=== PATIENT | female | born 1950 | race Caucasian/White ===

== ENCOUNTER 2016-12-06 07:11 | Emergency (ER) | payer MEDICARE, MEDICAID ==
[2016-12-06 07:31] VITALS: BP 180/85
[2016-12-06] MEDS ORDERED: HYDROcodone/ACETAMIN 5-325 MG* 1 TAB PO ONE (07:53)
--- NOTE | 2016-12-06 08:27 | RAD ---
HISTORY: Back pain with radiation to right leg COMPARISONS: MRI dated December 09, 2006 TECHNIQUE: Multiple contiguous axial CT scans were obtained of the lumbar spine without intravenous contrast, with coronal and sagittal multiplanar reformations. FINDINGS: SPINAL CANAL: Evaluation of the central canal is limited on CT technique; however, there is no obvious canalicular mass or epidural hemorrhage. ALIGNMENT: The alignment is normal. VERTEBRAL BODIES: There is diffuse osteopenia. There is multilevel anterolateral marginal osteophyte formation with sclerotic reactive end plate changes at L2-L3 JOINTS: There is diffuse facet osteoarthritic change MUSCULATURE: There is mild fatty infiltration INTERVERTEBRAL DISCS: There is diffuse loss of intervertebral disc height throughout the spine. AXIAL IMAGES: T11-T12: There is no osseous neural foraminal narrowing or central canal stenosis. T12-L1: There is a 0.9 cm central disc protrusion. There is no significant osseous neural foraminal area or central canal stenosis.. L1-L2: There is no osseous neural foraminal narrowing or central canal stenosis L2-L3: There is a broad-based disc bulge with ligamentous and facet hypertrophy. There is marginal osteophyte formation at the neural foramina bilaterally. There is moderate right neuroforaminal narrowing. There is mild narrowing of the central canal. L3-L4: There is a broad-based disc bulge with ligamentous and facet hypertrophy. There is marginal osteophyte formation at the neural foramina bilaterally. There is moderate bilateral neural foraminal narrowing. There is moderate narrowing of the central canal. L4-L5: There is a broad-based disc bulge with a superimposed central disc protrusion measuring 0.6 cm in depth. There is bilateral facet hypertrophy. There is mild bilateral neural foraminal narrowing. There is mild narrowing of the central canal. L5-S1: There is bilateral facet hypertrophy. There is no significant osseous neural foraminal narrowing or central canal stenosis. SOFT TISSUES: There is nonobstructing renal calyceal stone on the right measuring 0.5 cm. OTHER: None IMPRESSION: 1. DEGENERATIVE DISC DISEASE AND OSTEOARTHRITIS. 2. THERE ARE CENTRAL DISC PROTRUSIONS AT T12-L1 AND L4-L5. 3. THERE IS MODERATE NARROWING OF THE CENTRAL CANAL AT L3-L4 WITH MILD NARROWING AT L2-L3. 4. THERE IS MULTILEVEL NEURAL FORAMINAL NARROWING DESCRIBED ABOVE. 5. THERE IS A NONOBSTRUCTING RIGHT RENAL STONE
--- NOTE | 2016-12-06 08:37 | RAD ---
HISTORY: Right leg pain, knee swelling COMPARISONS: October 19, 2012 VIEWS: 4, Frontal, lateral, axial, and oblique views of the right knee FINDINGS: BONE DENSITY: Normal. BONES: There is no displaced fracture. JOINTS: There is moderate to advanced tricompartmental osteoarthritis. There is no suprapatellar joint effusion or lipohemarthrosis. ALIGNMENT: There is no dislocation. SOFT TISSUES: Unremarkable. OTHER FINDINGS: None. IMPRESSION: OSTEOARTHRITIS. NO ACUTE OSSEOUS INJURY. IF SYMPTOMS PERSIST, RECOMMEND REPEAT IMAGING.
--- NOTE | 2016-12-06 08:43 | RAD ---
CLINICAL HISTORY: Back pain with radiation to the right leg and hip COMPARISON: CT abdomen pelvis dated May 22, 2011 TECHNIQUE: Multiple contiguous axial CT scans were obtained of the abdomen and pelvis, without intravenous contrast enhancement. Coronal and sagittal multiplanar reformations are submitted for review. FINDINGS: The visualized portions of the solid abdominal organs are grossly normal in appearance. The visualized portions of the kidneys are normal in appearance without focal mass, calcification or signs of hydronephrosis. The visualized segments of small and large bowel are not distended. There is no gross retroperitoneal or mesenteric lymphadenopathy in the visualized portions of the abdomen. There are scattered calcified atherosclerosis of the infrarenal abdominal aorta. Beginning approximately beyond the iliac bifurcation there is calcification in the arterial wall extending into the bilateral visualized superficial femoral arteries and femoral profundi. Degenerative changes of the lower lumbar spine include loss of intervertebral disc height and vacuum disc phenomenon at L5/S1. There are mild degenerative changes at the bilateral hip joints including joint space narrowing and mild marginal osteophyte formation. Degenerative changes of the bilateral sacroiliac joints include vacuum disc phenomenon of both joints. There is osteophytic proliferation at the symphysis pubis. IMPRESSION: 1. Musculoskeletal degenerative changes of the pelvis and hips as described above without identification of acute fracture or dislocation. 2. Calcified medial arterial sclerosis beginning symmetrically beyond the iliac bifurcation. Please correlate to the presence of diabetes. This appearance could also be seen in the setting of Monckeberg's arteriosclerosis.
--- NOTE | 2016-12-06 14:00 | ED ---
surekha Cadena Timothy, scribed for Tee Lake MD on 12/06/16 at 0744 . Lower Extremity - HPI Summary HPI Summary: Jacki Rees is a 66 yo female presenting to [facility] from [facility] with constant 10/10 right leg and knee pain with "pins and needles" since 0500 this morning. She states the tingling sensation has been present for the past few weeks. She denies any trauma, as well as back pain, fever, chills. 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 There is pain with ambulation. She has self-medicated with bengay. Her MHx includes HTN, seizures, DM II, kidney stones, left shoulder replacement, depression. - History of Current Complaint Stated Complaint: LEG PAIN Time Seen by Provider: 12/06/16 07:38 Hx Obtained From: Patient Mechanism Of Injury: Unknown Onset of Pain: Immediate Onset/Duration: Hours Severity Initially: Moderate Severity Currently: Moderate Pain Intensity: 10 Pain Scale Used: 0-10 Numeric Timing: Constant Location: Is Discrete @ Associated Signs And Symptoms: Positive: Knee Pain - right, Other - tingling Aggravating Factor(s): Ambulation Alleviating Factor(s): Rest Able to Bear Weight: No - Allergies/Home Medications Allergies/Adverse Reactions: Allergies Allergy/AdvReac Type Severity Reaction Status Date / Time Penicillins Allergy Intermediate Rash Verified 11/25/14 09:08 PMH/Surg Hx/FS Hx/Imm Hx Endocrine/Hematology History: Reports: Hx Diabetes - ON ORAL MED Denies: Hx Thyroid Disease Cardiovascular History: Reports: Hx Hypertension - ON MEDICATION, Other Cardiovascular Problems/Disorders - IDDM II Respiratory History: Denies: Hx Asthma, Hx Chronic Obstructive Pulmonary Disease (COPD) GI History: Denies: Hx Ulcer History: Reports: Hx Kidney Stones - LAST SURGERY 2012 Sensory History: Reports: Hx Cataracts, Hx Contacts or Glasses - GLASSES, Hx Hearing Aid - HEARING AID-L; COCHLEAR IMPLANT RIGHT Opthamlomology History: Reports: Hx Cataracts, Hx Contacts or Glasses - GLASSES Neurological History: Reports: Hx Seizures - R/T TBI AT AGE 40, Other Neuro Impairments/Disorders - VERTIGO 2012 Psychiatric History: Reports: Hx Depression - ON MEDS - Cancer History Hx Chemotherapy: No Hx Radiation Therapy: No - Surgical History Surgery Procedure, Year, and Place: carpal tunnel both wrists [place]. [facility]ACT SURGERY- 2001- [facility]. COCHLEAR IMPLANT- [place], [place] 2014. KIDNEY STONE SURGERY- [facility]. 1985. TONSILLECTOMY A CHILD Hx Anesthesia Reactions: No Infectious Disease History: No Infectious Disease History: Denies: Hx Hepatitis, Hx Human Immunodeficiency Virus (HIV), Traveled Outside the US in Last 30 Days - Family History Known Family History: Positive: Hypertension, Diabetes Negative: Cardiac Disease - Social History Alcohol Use: None Substance Use Type: Reports: None Smoking Status (MU): Never Smoked Tobacco Review of Systems Constitutional: Negative Negative: Fever, Chills Eyes: Negative ENT: Negative Cardiovascular: Negative Respiratory: Negative Gastrointestinal: Negative Genitourinary: Negative Musculoskeletal: Other Skin: Negative Neurological: Negative Psychological: Normal All Other Systems Reviewed And Are Negative: Yes Physical Exam - Summary Physical Exam Summary: The patient is well-nourished in no acute distress and in no acute pain. The skin is warm and dry and skin color reflects adequate perfusion. HEENT: The head is normocephalic and atraumatic. The pupils are equal and reactive. The conjunctivae are clear and without drainage. Nares are patent and with mild rhinorrhea. Mouth reveals dry mucous membranes and the throat is without erythema and exudate. The external ears are intact. Pt is hard of hearing. Neck is supple with full range of motion and non-tender. There are no carotid bruits. There is no neck vein distension. Respiratory: Chest is non-tender. Lungs are clear to auscultation and breath sounds are symmetrical and equal. Cardiovascular: Hear is regular rate and rhythm. There is no murmur or rub auscultated. There is no peripheral edema and pulses are symmetrical and equal. Abdomen: The abdomen is soft and non-tender. There are normal bowel sounds heard in all four quadrants and there is no organomegaly palpated. Musculoskeletal: There is no back pain noted. Extremities are non-tender with full range of motion. There is good capillary refill. There is no peripheral edema or calf tenderness elicited. There is mild tenderness to palpation of the buttocks and right hip. Decreased flexion to 60 degrees of the right knee. Pain in medial compartment of the right knee. There is some moderate swelling around the right knee, effusion is not hot or red. There is medial collateral ligament pain. Neurological: Patient is alert and oriented to person, place and time. The patient has symmetrical motor strength in all four extremities. Cranial nerves are grossly intact. Deep tendon reflexes are symmetrical and equal in all four extremities. Psychiatric: The patient has an appropriate affect and does not exhibit any anxiety or depression. Triage Information Reviewed: Yes Vital Signs On Initial Exam: Initial Vitals Temp Pulse Resp BP Pulse Ox 98.1 F 91 16 190/92 97 12/06/16 07:21 12/06/16 07:21 12/06/16 07:21 12/06/16 07:21 12/06/16 07:21 Vital Signs Reviewed: Yes - Ryan Coma Scale Coma Scale Total: 15 Diagnostics - Vital Signs Vital Signs Temp Pulse Resp BP Pulse Ox 12/06/16 07:31 180/85 12/06/16 07:21 98.1 F 91 16 190/92 97 - Laboratory Lab Statement: Any lab studies that have been ordered have been reviewed, and results considered in the medical decision making process. - Radiology R Knee XR Xray Interpretation: No Acute Changes - IMPRESSION: OSTEOARTHRITIS. NO ACUTE OSSEOUS INJURY. IF SYMPTOMS PERSIST, RECOMMEND REPEAT IMAGING. Radiology Interpretation Completed By: Radiologist - CT L-Spine CT Interpretation: Positive (See Comments) - IMPRESSION: 1. DEGENERATIVE DISC DISEASE AND OSTEOARTHRITIS. 2. THERE ARE CENTRAL DISC PROTRUSIONS AT T12-L1 AND L4-L5. 3. THERE IS MODERATE NARROWING OF THE CENTRAL CANAL AT L3-L4 WITH MILD NARROWING AT L2-L3. 4. THERE IS MULTILEVEL NEURAL FORAMINAL NARROWING DESCRIBED ABOVE. 5. THERE IS A NONOBSTRUCTING RIGHT RENAL STONE CT Interpretation Completed By: Radiologist Pelvis CT Interpretation: Positive (See Comments) - 1. Musculoskeletal degenerative changes of the pelvis and hips as described above without identification of acute fracture or dislocation. 2. Calcified medial arterial sclerosis beginning symmetrically beyond the iliac bifurcation. Please correlate to the presence of diabetes. This appearance could also be seen in the setting of Monckeberg's arteriosclerosis. CT Interpretation Completed By: Radiologist Re-Evaluation - Re-Evaluation First Eval Re-Evaluation Time: 08:59 Change: Unchanged Comment: Pt is agreeable to current course of Tx. Lower Extremity Course/Dx - Course Assessment/Plan: Jacki Rees is a 66 yo female presenting to [facility] with ? 10 /10 leg pain since 0500 this morning, and tingling for the past few weeks. After clinical examination and review of the XR of her right knee, CT pelvis, and CT L-Spine (see documentation) she will be discharged home with degenerative disc disease of the lumbar spine, osteoarthritis of the lumbar spine, left hip, right hip, and right knee. - Diagnoses Differential Diagnosis/HQI/PQRI: Positive: Other - osteoarthritis, degenerative disc disease Provider Diagnoses: Osteoarthritis of lumbar spine, Degenerative disc disease, lumbar, Osteoarthritis of left hip, Osteoarthritis of right hip, Osteoarthritis of right knee Discharge - Discharge Plan Condition: Stable Disposition: HOME Prescriptions: oxyCODONE/Acetamin 5/325 MG* [Percocet 5/325 TAB*] 1 tab PO Q6H PRN #20 tab MDD 4 PRN Reason: pain Patient Education Materials: Osteoarthritis (ED), Degenerative Disc Disease (ED ) Referrals: Anjum Kincaid MD [Primary Care Provider] - 2 Days Additional Instructions: Please follow up with your primary care physician regarding your visit to the emergency department today. Take Mobic as directed. Return to the emergency department with any new or recurring symptoms. The documentation as recorded by the surekha storm Timothy accurately reflects the service I personally performed and the decisions made by , Tee Lake MD.
== END 2016-12-06 10:05 | disposition home or self-care (01) ==
LOC: ED 07:11
DX: M47.896 Other spondylosis, lumbar region (principal); M16.0 Bilateral primary osteoarthritis of hip; M25.561 Pain in right knee; M51.36 Other intervertebral disc degeneration, lumbar region; Z86.79 Personal history of other diseases of the circulatory system
CPT/HCPCS: 72131; 72192; 99282

== ENCOUNTER 2017-03-02 05:52 | Inpatient (IN) | payer MEDICARE, MEDICAID ==
--- NOTE | 2017-03-02 06:31 | ED ---
Sumit Cadena Benjamin, scribed for Tono Ghosh MD on 03/02/17 at 0607 . HPI Chest Pain - HPI Summary HPI Summary: 67yo female BIBA for CP. Pt reports having CP that started since last night. Pain radiates to back, and upper jaw. Pt is diabetic and hypertensive. Hx of kidney stones, but no prior cardiac hx. Pt also has hearing problems. - History of Current Complaint Chief Complaint: EDChestPainROMI Time Seen by Provider: 03/02/17 05:57 Hx Obtained From: Patient Onset/Duration: Started Hours Ago, Still Present Timing: Constant Initial Severity: Moderate Current Severity: Moderate Pain Intensity: 6 Pain Scale Used: 0-10 Numeric Chest Pain Location: Diffuse Chest Pain Radiates: Yes Chest Pain Radiates To:: Back, Jaw Aggravating Factor(s): Nothing Alleviating Factor(s): Nothing Associated Signs and Symptoms: Positive: Back Pain - Additional Pertinent History Primary Care Physician: PRIYANK - Allergy/Home Medications Allergies/Adverse Reactions: Allergies Allergy/AdvReac Type Severity Reaction Status Date / Time No Known Allergies Allergy Verified 03/02/17 07:03 PMH/Surg Hx/FS Hx/Imm Hx Endocrine/Hematology History: Reports: Hx Diabetes - ON ORAL MED Denies: Hx Thyroid Disease Cardiovascular History: Reports: Hx Hypertension - ON MEDICATION, Other Cardiovascular Problems/Disorders - IDDM II Respiratory History: Denies: Hx Asthma, Hx Chronic Obstructive Pulmonary Disease (COPD) GI History: Denies: Hx Ulcer History: Reports: Hx Kidney Stones - LAST SURGERY 2012 Sensory History: Reports: Hx Cataracts, Hx Contacts or Glasses - GLASSES, Hx Hearing Aid - HEARING AID-L; COCHLEAR IMPLANT RIGHT Opthamlomology History: Reports: Hx Cataracts, Hx Contacts or Glasses - GLASSES Neurological History: Reports: 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 CATARACT SURGERY- 2001- [facility]. COCHLEAR IMPLANT- [place], [place] 2013. KIDNEY STONE SURGERY- [facility]. 1985. TONSILLECTOMY A CHILD Hx Anesthesia Reactions: No Infectious Disease History: No Infectious Disease History: Denies: Hx Hepatitis, Hx Human Immunodeficiency Virus (HIV), Traveled Outside the US in Last 30 Days - Family History Known Family History: Positive: Hypertension, Diabetes Negative: Cardiac Disease - Social History Occupation: Disabled Lives: With Family Alcohol Use: None Substance Use Type: Reports: None Smoking Status (MU): Never Smoked Tobacco Review of Systems Constitutional: Negative Eyes: Negative ENT: Negative Positive: Chest Pain Respiratory: Negative Positive: Nausea Genitourinary: Negative Positive: Myalgia - back pain jaw pain Skin: Negative Neurological: Negative Psychological: Normal All Other Systems Reviewed And Are Negative: Yes Physical Exam Triage Information Reviewed: Yes Vital Signs On Initial Exam: Initial Vitals Temp Pulse Resp BP Pulse Ox 98.7 F 107 19 210/109 96 03/02/17 05:55 03/02/17 05:55 03/02/17 05:55 03/02/17 05:55 03/02/17 05:55 Vital Signs Reviewed: Yes Appearance: Positive: Well-Appearing, No Pain Distress Skin: Positive: Warm Head/Face: Positive: Normal Head/Face Inspection Eyes: Positive: HAILE ENT: Positive: Hearing grossly normal Neck: Positive: Supple Respiratory/Lung Sounds: Positive: Clear to Auscultation, Breath Sounds Present Cardiovascular: Positive: RRR Abdomen Description: Positive: Nontender, Soft Bowel Sounds: Positive: Present Musculoskeletal: Positive: Strength/ROM Intact Neurological: Positive: Alert, Oriented to Person Place, Time Psychiatric: Positive: Affect/Mood Appropriate Diagnostics - Vital Signs Vital Signs Temp Pulse Resp BP Pulse Ox 03/02/17 05:55 98.7 F 107 19 210/109 96 - Laboratory Result Diagrams: 03/02/17 06:20 03/02/17 06:20 Lab Statement: Any lab studies that have been ordered have been reviewed, and results considered in the medical decision making process. - EKG 0558. Cardiac Rate: Tachycardia - 106bpm EKG Rhythm: Sinus Tachycardia ST Segment: Normal Ectopy: None Re-Evaluation - Re-Evaluation First Eval Change: Improved - results d/w pt, d/w hospitalist Chest Pain Course/Dx - Diagnoses Provider Diagnoses: ACS (acute coronary syndrome) - Provider Notifications Instructed by Provider To: Admit As Inpatient Discharge - Discharge Plan Condition: Fair Disposition: ADMITTED TO [facility] documentation as recorded by the Sumit storm Benjamin accurately reflects the service I personally performed and the decisions made by me, Tono Ghosh MD.
[2017-03-02 06:41] LABS: Hematocrit 36 % (35-47); Hemoglobin 11.5 g/dl (12.0-16.0); Mean Corpuscular HGB Conc 32 g/dl (31-36); Mean Corpuscular Hemoglobin 23 pg (27-31); Mean Platelet Volume 7 um3 (7.4-10.4); Red Blood Count 4.95 10^6/ul (4.0-5.4); Red Cell Distribution Width 18 % (10.5-15); White Blood Count 6.2 10^3/ul (3.5-10.8)
[2017-03-02] MEDS ORDERED: Morphine INJ* 2 MG/ML 1 ML SYRINGE IV ONE (06:47)
[2017-03-02 06:53] LABS: Albumin 3.9 g/dL (3.2-5.2); BUN/Creatinine Ratio 21.5 (8-20); Calcium 10.1 mg/dL (8.6-10.3); EGFR African American 77.3 (>60); EGFR Non-African American 60.1 (>60); Globulin 2.6 g/dL (2-4); Potassium 3.9 mmol/L (3.5-5.0); Total Bilirubin 0.6 mg/dL (0.2-1.0); Total Protein 6.5 g/dL (6.4-8.9)
[2017-03-02 07:01] LABS: Comments Flag Yes
[2017-03-02 07:02] LABS: Add Diff/Slide Review? Slide Review Added; Mean Corpuscular Volume 73 fL (80-97); Troponin I 0.07 ng/mL (<0.04)
--- NOTE | 2017-03-02 07:40 | RAD ---
HISTORY: Chest pain COMPARISONS: October 31, 2015 VIEWS: 2: Frontal dual-energy and lateral views of the chest. FINDINGS: CARDIOMEDIASTINAL SILHOUETTE: The cardiomediastinal silhouette is normal. NURIS: The nuris are normal. PLEURA: The costophrenic angles are sharp. No pleural abnormalities are noted. LUNG PARENCHYMA: The lungs are clear. ABDOMEN: The upper abdomen is clear. There is no subphrenic gas. BONES AND SOFT TISSUES: The patient is status post left shoulder arthroplasty OTHER: None. IMPRESSION: NO ACTIVE CARDIOPULMONARY DISEASE.
[2017-03-02] MEDS ORDERED: Ketorolac INJ* 15 MG/ML 1 ML VIAL IV PUSH PRN (07:46)
[2017-03-02] MEDS ORDERED: hydrALAZINE IV* 20 MG/ML VIAL IV SLOW PU PRN (07:53)
[2017-03-02] MEDS ORDERED: Enoxaparin(*) 40 MG/0.4 ML SYR SUBCUT SCH (08:00)
--- NOTE | 2017-03-02 08:30 | RAD ---
INDICATION: Left shoulder pain in a patient with left shoulder arthroplasty COMPARISON: Most recent comparison radiograph is dated December 18, 2015 TECHNIQUE: 4 views of the left shoulder were obtained. FINDINGS: Since the most recent radiograph the unipolar prosthesis has been replaced with a bipolar left shoulder prosthesis. The prosthesis appears to be appropriately aligned in the AP, lateral and axillary projection. There is no definite periprostatic fracture or loosening. The remaining visualized bones are intact and appropriately aligned. IMPRESSION: ANATOMIC ALIGNMENT OF BIPOLAR SHOULDER PROSTHESIS THAT IS NEW SINCE THE DECEMBER 18, 2015 RADIOGRAPH. If the patient's symptoms persist, follow-up imaging is recommended.
[2017-03-02 09:06] LABS: Microcytosis 2+
[2017-03-02] MEDS: Lisinopril TAB* 10 MG PO SCH (09:26)
[2017-03-02] MEDS: DULoxetine DR CAP* 30 MG CAP.DR PO SCH (09:26)
[2017-03-02 09:48] LABS: Troponin I 0.67 ng/mL (<0.04)
--- NOTE | 2017-03-02 10:03 | HP ---
CC: Anjum Kincaid MD * HISTORY AND PHYSICAL: DATE OF ADMISSION: 03/02/17 PCP: Anjum Kincaid MD CHIEF COMPLAINT: Chest pain and shoulder pain. HISTORY OF PRESENT ILLNESS: Ms. Rees is a 67-year-old female with past medical history of hypertension, hyperlipidemia, diabetes, depression, history of shoulder replacement and septic shoulder joint, who presents to the hospital with chest pain and shoulder pain. The patient states initially she noticed development of chest pressure and pain around 8:30 last night. She states this was present in the mid sternal area and slightly radiates to the left. She said the pain began when she was just sitting and knitting. She described it as tightness. No associated nausea, vomiting, or diuresis. It did not seem any worse with exertion. She reports some numbness and tingling in her bilateral hands; however, this has been going on for some time now. She states the pain persisted all night long and she finally called EMS this morning and was brought to the hospital. She received aspirin and nitroglycerin, and she reports that the chest pain seems to have resolved; however, she has now developed left upper chest and shoulder pain. It is difficult to discern from her whether this is a totally new pain or whether this has been going on intermittently since her last surgery in July. There seemed to be some components that have been going on; however, perhaps it seems more severe at this time and is involving some of the posterior left shoulder as well. She received morphine in the ED, which did not help the pain very much, although it did cause her to throw up. The pain is reproducible and pleuritic. She denies any fever, chills. Has not had any trauma to the shoulder. No abdominal pain, diarrhea, constipation, dysuria, hematuria, hematochezia, or melena. PAST MEDICAL HISTORY: Hypertension, diabetes, hyperlipidemia, depression, hard of hearing with cochlear implant, septic shoulder joint. PAST SURGICAL HISTORY: Cochlear implant, left shoulder replacement with subsequent removal and another replacement last in July, cataract surgery, C -section, kidney stone. HOME MEDICATIONS: 1. Duloxetine 30 mg by mouth daily. 2. Metformin 1000 mg by mouth 2 times daily. 3. Glipizide 10 mg by mouth 2 times daily. 4. Simvastatin 40 mg by mouth at bedtime. 5. Meloxicam 15 mg by mouth daily. 6. Lisinopril 10 mg by mouth daily. ALLERGIES: Reports no known drug allergies. FAMILY HISTORY: Significant for father with kidney stones, mother with blood clot. SOCIAL HISTORY: Denies any tobacco abuse. No alcohol or illicit drug use. REVIEW OF SYSTEMS: A 12-point review of systems was negative except for those noted in the HPI. PHYSICAL EXAMINATION GENERAL: The patient is an elderly female, lying in bed, in no apparent distress. VITAL SIGNS: On admission, temperature 98.7, heart rate 107, respiratory rate 19, O2 saturation 96% on room air, blood pressure 210/109 on admission, last checked 180s/90s. HEENT: Head normocephalic, atraumatic. Pupils equal, round, and reactive to light and accommodation. Anicteric sclerae. ENT: Dry mucous membranes. No cervical adenopathy. LUNGS: Clear to auscultation bilaterally. No wheezes, rales, or rhonchi. CARDIOVASCULAR: Regular rate and rhythm. S1, S2 present. No murmurs, gallops , or rubs. ABDOMEN: Obese, soft, nontender, nondistended. Bowel sounds positive. EXTREMITIES: The patient with pain in the left shoulder when she raises it past about 90 degrees. It's tender to palpation in the posterior and anterior aspects of the shoulder. There is no swelling or erythema. The patient has no lower extremity edema. NEUROLOGIC: The patient is alert and oriented x3. No focal neurological deficits. SKIN: Warm, dry, and well perfused. DIAGNOSTIC STUDIES/LAB DATA: White blood cell count of 6.2, hematocrit 36, platelets 142. D-dimer 468. Sodium 136, potassium 3.9, chloride 104, carbon dioxide 23, BUN 20, creatinine 0.93, glucose 285. LFTs within normal limits. Troponin 0.07. Chest x-ray personally reviewed shows no acute disease. EKG personally reviewed shows sinus tachycardia with no ischemic changes. ASSESSMENT AND PLAN: Chest pain with mildly elevated troponin and shoulder pain in a 67-year-old female with past medical history of hypertension, diabetes , hyperlipidemia, depression, and multiple left shoulder surgeries. 1. Chest pain. Seems to have resolved at this time and also seems to be independent of the patient's shoulder pain. Some of her symptoms sounded cardiac in nature. She does have a mildly elevated troponin, although this could just be due to her significant hypertension. We will continue to trend the patient's troponins, monitor on telemetry. We will order a stress test, and see if that could potentially be done today. She received 325 of aspirin. For now, we will continue a baby aspirin daily. We will hold off on a beta- marjorie for now. If the next troponin rises significantly, we will probably hold off on the stress test and obtain a Cardiology consult. 2. Shoulder pain. As noted above, this seems independent of the chest pain, and the patient states it only started since she arrived in the hospital. Denies any trauma. We'll start off with some x-rays. I do not think that she has a recurrent shoulder infection. She stated previously, she could not move the shoulder at all; this may just be musculoskeletal. We will treat the patient with some antiinflammatories as well as p.o. Percocet, and see if that will help. 3. Hypertension. Blood pressures have been significantly elevated. We will work on pain control. For now, we will continue the patient's home lisinopril and we will write for p.r.n. hydralazine as needed. If the patient is requiring additional doses, can increase her home medications. 4. Hyperlipidemia. Continue home statin. 5. Diabetes. Regular insulin sliding scale while n.p.o. We will hold the patient's home glipizide and metformin for now. 6. DVT prophylaxis. Lovenox subcu. 7. Code status. The patient is a full code. ADDENDUM: On the floor patient's troponin increased and BPs remained difficult to control. Spoke with Dr. Monteiro who evaluated the patient and started a Nitro gtt and transferred the patient to the ICU. She spoke with Dr. Brown who evaluated the patient and plans to take her for a cath but with her hx of microcytic anemia would like to ensure she is not having a GI bleed. Stool guaiac ordered. Patient also started on metoprolol and therapeutic Lovenox. TIME SPENT: Total time spent on this admission was 75 minutes, with over half the time spent [id number] with the patient in counseling and coordinating care. [id number]/[facility] #: [id number] MARGARET
[2017-03-02] MEDS ORDERED: nitroGLYCERIN DRIP* 25,000 MCG in PREMIX* 0 ML IV SCH (11:00)
[2017-03-02] MEDS ORDERED: Metoprolol Tartrate TAB* 25 MG PO SCH (11:00)
[2017-03-02] MEDS: Metoprolol Tartrate TAB* 25 MG PO ONE ×2 (11:49→13:02)
[2017-03-02] MEDS: Enoxaparin(*) 60 MG/0.6 ML SYR SUBCUT ONE ×2 (11:50→12:18)
[2017-03-02] MEDS ORDERED: nitroGLYCERIN DRIP* 250 ML ONE (11:59)
[2017-03-02] MEDS ORDERED: Insulin REGULAR(*) 1 UNITS UNIT SUBCUT SCH (12:00)
[2017-03-02] MEDS ORDERED: Perflutren Lipid Microsphere* 3 ML VIAL ONE (12:05)
[2017-03-02] MEDS: Atorvastatin* 80 MG TAB PO SCH ×2 (12:18→17:41)
[2017-03-02 13:18] LABS: HDL Cholesterol 27.8 mg/dL
[2017-03-02 15:32] LABS: Troponin I 2.49 ng/mL (<0.04)
[2017-03-02] MEDS ORDERED: Dextrose 50% Syringe 50 ML* 25 GM/50 ML SYRINGE IV PUSH PRN (15:56)
--- NOTE | 2017-03-02 16:42 | ECHO ---
Patient: GLADYS COLLIER [facility] Rec#: [id number] : 1950 Date: 03/02/2017 Age: 67y Height: 154.94 cm / 61.0 in Weight: 95.25 kg / 209.9 lbs Sex: F BSA: 1.93 Room#: ICU 9 Admit Date#: 03/02/2017 Type: Inpatient Referring: HARSHAD FIGUEROA MD Reading: Melody Monteiro MD Senior Game Advisor: Bee Jung,RDCS,RDMS CC: Anjum Kincaid MD Transthoracic Echocardiogram Indication: CP BP: 207/82 HR: 68 Rhythm: NSR Findings History: HTN, HLD, DM, septic shoulder replacement Technical Comments: The study quality is fair. Completed 1250 Left Ventricle: The left ventricular chamber size is normal. There is no left ventricular hypertrophy. There is a focal wall motion abnormality present.Base of the posterior wall appears severely hypokinetic to akinetic, the base of the inferior wall appears severely hypokinetic. Left ventricular systolic function is at the lower limits of normal. The estimated ejection fraction is 45-50%. Abnormal left ventricular diastolic filling is observed, consistent with impaired relaxation. Left Atrium: The left atrial chamber size is normal. Right Ventricle: The right ventricular chamber size and systolic function are within normal limits. Right Atrium: The right atrial cavity size is normal. Aortic Valve: The aortic valve is trileaflet. There is no evidence of aortic valve thickening. Systolic excursion of the aortic valve is normal. There is no evidence of aortic regurgitation. There is no evidence of aortic stenosis. Mitral Valve: The mitral valve leaflets appear normal. There is mild mitral regurgitation. There is no evidence of mitral stenosis. Tricuspid Valve: The tricuspid valve leaflets are normal. There is trace tricuspid regurgitation. Unable to estimate the right ventricular systolic pressure. Pulmonic Valve: The pulmonic valve appears normal. There is a trace pulmonic regurgitation. Pericardium: There is no significant pericardial effusion. Aorta: The aortic root appears normal. There is no dilatation of the aortic arch. Pulmonary Artery: The main pulmonary artery is not well visualized. Venous: The inferior vena cava appears normal in size. There is a greater than 50% respiratory change in the inferior vena cava dimension. Contrast: Definity was used to optimize study. A total of 4 ml was used Conclusions Normal left ventricular chamber dimensions. Base of the posterior wall appears severely hypokinetic to akinetic, the base of the inferior wall appears severely hypokinetic. The estimated ejection fraction is 45-50%. Abnormal left ventricular diastolic filling is observed, consistent with impaired relaxation. The right ventricular chamber size and systolic function are within normal limits. There is mild mitral regurgitation. There is trace tricuspid regurgitation. No prior echo to compare. Measurements Name Value Normal Range RVIDd (AP) 2D 3.2 cm (0.9 - 2.6) RVDdMajor (2D) 2 cm (2.2 - 4.4) RAd ISD 4CH 4.8 cm (3.4 - 4.9) RA (A4C)W 2.8 cm (2.9 - 4.6) IVSd (2D) 1 cm (0.6 - 1) LVPWd (2D) 1 cm (0.6 - 1) LVIDd (2D) 4.3 cm (3.6 - 5.4) LVIDs (2D) 3.6 cm - LV FS (2D) 18 % (25 - 45) Aortic Annulus 1.8 cm (1.4 - 2.6) Ao root diameter (2D) 2.7 cm (2.1 - 3.5) Ascending Ao 3.2 cm (2.1 - 3.4) Aortic arch 2.9 cm (1.8 - 3.4) LA dimension (AP) 2D 4.1 cm (2.3 - 3.8) LAd ISD 4CH 5.3 cm (2.9 - 5.3) LA ISD 4CH W 3.8 cm (2.5 - 4.5) Name Value Normal Range LA ESV SP 4CH (A/L) 53.06 ml - LA ESV SP 2CH (A/L) 55.61 ml - LA ESV BP (A/L) 54.75 ml - LA ESV BP (A/L) index 28.4 ml/m2 - LA ESV SP 4CH (MOD) 50.8 ml - LA ESV SP 2CH (MOD) 53.08 ml - Name Value Normal Range MV E-wave Vmax 0.7 m/sec - MV deceleration time 205.3 msec - MV A-wave Vmax 0.9 m/sec - MV E:A ratio 0.8 ratio - P. vein S-wave Vmax 0.4 m/sec - P. vein D-wave Vmax 0.2 m/sec - P. vein S:D Vmax ratio 1.9 ratio - P. vein A-wave duration 92.3 msec - LV septal e' Vmax 0.05 m/sec - LV lateral e' Vmax 0.07 m/sec - LV E:e' septal ratio 14 ratio - LV E:e' lateral ratio 10 ratio - Name Value Normal Range AV Vmax 1.3 m/sec - AV VTI 29.3 cm - AV peak gradient 7 mmHg - AV mean gradient 3.5 mmHg - LVOT Vmax 0.8 m/sec - LVOT VTI 21 cm - LVOT peak gradient 2.6 mmHg - LVOT mean gradient 1.3 mmHg - Name Value Normal Range RAP 8 mmHg - IVC diameter 1.9 cm - Name Value Normal Range PV Vmax 0.6 m/sec - PV peak gradient 1.4 mmHg -
[2017-03-02] MEDS: Insulin LISPRO* 1 UNITS UNIT SUBCUT SCH (17:38)
[2017-03-02] MEDS: Metoprolol Tartrate TAB* 25 MG PO SCH (19:37)
[2017-03-02] MEDS ORDERED: Atorvastatin* 20 MG TAB PO SCH (21:00)
--- NOTE | 2017-03-02 21:33 | CONS ---
CC: Dr. Anjum Kincaid; Hospitalist Service * CARDIOLOGY CONSULTATION: DATE OF CONSULT: 03/02/17 REASON FOR CONSULTATION: Chest pain and elevated troponins. HISTORY OF PRESENT ILLNESS: Ms. Rees is a 67-year-old woman with atherosclerotic risk, but no previously identified atherosclerotic disease. The patient did some shopping yesterday and went to [facility] last night and was feeling well. When she got to her apartment in [facility], she started to develop chest pain that then radiated to the left shoulder. It persisted all night and this morning, she called EMS to be taken to the emergency room. She was given sublingual nitroglycerin by the EMS with improvement and it sounds per ED records resolution. She was admitted to the floor and has had recurrence of shoulder pain. She has a history of arthritic shoulder pain, but her daughter, Rancho, who is present with her says the description of this pain is different than her prior arthritic pain. The patient was nauseated this morning. There was a bucket next to her bedside. She denies associated dyspnea or diaphoresis. PAST MEDICAL HISTORY: The patient has a past medical history of adult onset diabetes, hypertension, dyslipidemia, hearing problems (cochlear implant), and history of septic shoulder on the left. PAST SURGICAL HISTORY: Includes left shoulder replacement, cataracts, section, kidney stones, and her cochlear implant. CURRENT INPATIENT MEDICATIONS: Include: 1. Aspirin 81 mg a day. 2. Lipitor 20 mg a day. 3. Cymbalta 30 mg a day. 4. Lovenox. 5. Hydralazine p.r.n. 6. Human lispro. 7. Humalog insulin. 8. Lisinopril 10 mg a day. 9. Lopressor 25 mg b.i.d. 10. Percocet p.r.n. 11. She was on Toradol p.r.n. ALLERGIES: She has no known drug allergies. FAMILY HISTORY: Significant in that her father quite young when her mother was a young adult with a history of hypertension and kidney stones. Her mother in her 90s with a history of blood clots. The patient and her daughter denied any known history of coronary disease. SOCIAL HISTORY: The patient is a nonsmoker, nondrinker, lives at [facility]. REVIEW OF SYSTEMS: See history of present illness. She denies recent travel. No change in exertion. No missed meds or new [id number] medications. No recent fevers, chills, sweats, hematuria, or dysuria. PHYSICAL EXAMINATION: The patient is 5 feet 1 inches, weighs 210 pounds with a BMI of 40. Vital Signs: This morning at the time I saw her, she had a blood pressure of 207/82, pulse was 79, respiratory rate was 18, oxygen saturation on room air was 97%, and temperature 98.7. General Appearance: Overweight, short woman, lying in bed. Appears reasonably comfortable, but she does intermittently point to her left shoulder when she is talking or answering questions about her discomfort. Psychologically, pleasant and cooperative. Neurologically, awake, alert, and oriented to person, place, and time. Cranial nerves II through XII grossly intact. Grossly normal sensory and motor function in the upper and lower extremities. Gait not checked. She did move while in bed. Skin: Warm, dry. No cyanosis, rashes, or other lesions. HEENT: Pupils were equal and round. Mucous membranes were moist. Neck without increased JVP appreciated. Good carotid pulses. No audible bruits. No lymphadenopathy or thyromegaly appreciated. Lungs were clear with good effort. No wheezes, rales , or rhonchi. Coronary: S1, S2, regular. No shift in PMI and no murmurs or rubs. On pushing on the left shoulder, there is some point tenderness, but this is different than the pain that she presented with which is more achy as if somebody had punched her. Abdomen: Overweight. Active bowel sounds. Soft , nontender. No appreciable hepatosplenomegaly. Femoral pulses from obesity are hard to find. No bruits and lower extremities are free of edema and warm. DIAGNOSTIC STUDIES/LAB DATA: The patient's 12-lead ECG on arrival to the ED at 6 a.m. this morning shows sinus tachycardia, 106 beats a minute, QRS axis 0, normal AV and IV conduction times, and ST segments are unremarkable. Repeat EKG I ordered at 11 this morning shows normal sinus rhythm, 73 beats a minute, QRS axis +15 with normal AV and IV conduction times. There is some borderline ST elevation in the lateral lead V6, that is new compared with her admission ECG. Labs: Sodium 136, potassium 3.9, chloride 104, bicarb 23, BUN 20, creatinine 0.93, glucose 285. ALT of 17. Troponin #1 0.07, troponin #2 0.67, and we have troponin #3 back now at 2.49. Lipids: Total cholesterol 245, triglycerides 430 , HDL cholesterol 30, and LDL cholesterol unable to be calculated. D-dimer 468. White count 6.2, hemoglobin 11.5, mean cell volume low at 73, platelets 142. Echocardiogram showed severe hypokinesis to akinesis of the posterior wall extending into the inferior wall and more subtly in the septum with ejection fraction 45% to 50%. IMPRESSION: Jacki Rees is a 67-year-old woman who presented to the hospital with about 22 hours of angina having ongoing pain and intermittently extremely hypertensive. I have recommended increased beta blockade and she may ultimately benefit from Coreg. I also think unless there is a contraindication that her ROMEO inhibitor should be titrated for optimal blood pressure control in addition to benefits with myocardial infarction. Because of ongoing waxing and waning chest pain that sounds anginal, I am going to put her on a nitroglycerin drip which will also aid in antihypertensive management. I increased her atorvastatin from 20 to 80 mg empirically based on data and we will get a direct LDL cholesterol. For her elevated triggers in triglycerides, down the road dietary modifications should be made. In talking to Ms. Rees and her daughter, I feel she needs a cardiac catheterization and did contact Dr. Brown to discuss this. Her low mean cell volume and borderline anemia raise a possibility of iron deficiency anemia raising the possibility of a slow GI bleed and for this reason, she did not go straight to the lab scientist today, will undergo GI investigation. We will continue to progressively optimize her medical management. I spent time explaining to the patient and her daughter the indications, risks, and benefits of the cardiac catheterization and potential outcomes of continued medical management, angioplasty and stenting or in some cases bypass surgery as needed. They were understanding. Additional recommendations will be made pending her response to the above measures and testing in her clinical course. [id number]/[facility] #: [id number] MARGARET
[2017-03-02] MEDS ORDERED: Enoxaparin(*) 100 MG/ML SYR SUBCUT SCH (22:00)
[2017-03-03] MEDS: oxyCODONE/Acetamin 5/325 MG* TAB PO PRN (00:45)
[2017-03-03] MEDS: Metoprolol Tartrate TAB* 25 MG PO SCH ×2 (01:35→09:02)
[2017-03-03 06:22] LABS: BUN/Creatinine Ratio 22.7 (8-20); Calcium 8.9 mg/dL (8.6-10.3); EGFR African American 82.4 (>60); EGFR Non-African American 64.1 (>60); Potassium 4.2 mmol/L (3.5-5.0)
[2017-03-03] MEDS: Aspirin EC Low Dose* 81 MG TAB.EC PO SCH (09:02)
[2017-03-03] MEDS: Lisinopril TAB* 10 MG PO SCH (09:02)
[2017-03-03] MEDS: NS 0.9% 1000 ML* 1,000 ML IV SCH ×2 (09:02→19:17)
[2017-03-03 09:12] LABS: Troponin I 7.89 ng/mL (<0.04)
[2017-03-03] MEDS: Insulin LISPRO* 1 UNITS UNIT SUBCUT SCH ×3 (11:54→17:26)
[2017-03-03] MEDS: Metoprolol Tartrate TAB* 50 mg PO SCH ×2 (12:42→21:02)
[2017-03-03] MEDS: Diltiazem TAB* 30 MG PO SCH ×2 (12:42→17:27)
[2017-03-03] MEDS: DULoxetine DR CAP* 30 MG CAP.DR PO SCH (13:19)
[2017-03-03] MEDS ORDERED: nitroGLYCERIN DRIP* 250 ML ONE (14:35)
[2017-03-03] MEDS: nitroGLYCERIN DRIP* 25,000 MCG in PREMIX* 0 ML IV SCH (14:45)
--- NOTE | 2017-03-03 15:11 | PN ---
Subjective Date of Service: 03/03/17 Interval History: Seen and examined with daughter at bedside Pain in left shoulder improved but not completely resolved denies SOB, LH, nausea, palpitations Objective Active Medications: Aspirin (Aspirin Ec Low Dose*) 81 mg PO DAILY [facility] Last Admin: 03/03/17 09:02 Dose: 81 mg Atorvastatin Calcium (Lipitor*) 80 mg PO 1700 [facility] Last Admin: 03/02/17 17:41 Dose: 80 mg Dextrose (D50w Syringe 50 Ml*) 12.5 gm IV PUSH .FOR FS < 60 - SS PRN PRN Reason: FS < 60 Diltiazem HCl (Cardizem Tab*) 30 mg PO Q6HR [facility] Last Admin: 03/03/17 12:42 Dose: 30 mg Duloxetine HCl (Cymbalta Cap*) 30 mg PO QAM [facility] Last Admin: 03/03/17 13:19 Dose: 30 mg Enoxaparin Sodium (Lovenox(*)) 100 mg SUBCUT Q12H [facility] Hydralazine HCl (Apresoline Iv*) 5 mg IV SLOW PU Q6H PRN PRN Reason: SBP > 170 Last Admin: 03/02/17 09:26 Dose: 5 mg Nitroglycerin/Dextrose 25,000 (mcg/ IV Solution) 250 mls @ 6 mls/hr IV .( Initial Rate) YUDI; 10 MCG/MIN PRN Reason: Protocol Last Admin: 03/03/17 14:45 Dose: 6 mls/hr Sodium Chloride (Ns 0.9% 1000 Ml*) 1,000 mls @ 100 mls/hr IV .per rate [facility] Last Admin: 03/03/17 09:02 Dose: 100 mls/hr Insulin Human Lispro (Humalog*) 0 - 15 units SUBCUT AC [facility] PRN Reason: Protocol Last Admin: 03/03/17 12:42 Dose: Not Given Lisinopril (Prinivil Tab*) 10 mg PO 0900 [facility] Last Admin: 03/03/17 09:02 Dose: 10 mg Metoprolol Tartrate (Lopressor Tab*) 50 mg PO Q8HR [facility] Last Admin: 03/03/17 12:42 Dose: 50 mg Oxycodone/Acetaminophen (Percocet 5/325 Tab*) 1 tab PO Q4H PRN PRN Reason: Pain Last Admin: 03/03/17 00:45 Dose: 1 tab Vital Signs 03/02/17 03/02/17 03/02/17 15:00 15:30 15:59 Temperature 97.6 F Pulse Rate 81 78 Respiratory 18 16 Rate Blood Pressure 135/66 134/79 (mmHg) O2 Sat by Pulse 94 92 Oximetry 03/02/17 03/02/17 03/02/17 16:00 16:30 17:00 Temperature Pulse Rate 67 65 77 Respiratory 17 16 19 Rate Blood Pressure 144/70 135/80 146/100 (mmHg) O2 Sat by Pulse 93 94 95 Oximetry 03/02/17 03/02/17 03/02/17 17:30 18:00 18:05 Temperature Pulse Rate 80 88 Respiratory 20 20 Rate Blood Pressure 145/75 147/91 160/81 (mmHg) O2 Sat by Pulse 95 95 Oximetry 03/02/17 03/02/17 03/02/17 18:31 19:00 19:43 Temperature 98.3 F Pulse Rate 81 88 Respiratory 20 20 Rate Blood Pressure 143/70 144/73 (mmHg) O2 Sat by Pulse 96 95 Oximetry 03/02/17 03/02/17 03/02/17 20:00 20:30 21:00 Temperature Pulse Rate 80 82 79 Respiratory 21 18 18 Rate Blood Pressure 143/75 129/108 133/85 (mmHg) O2 Sat by Pulse 94 93 93 Oximetry 03/02/17 03/02/17 03/02/17 21:30 21:54 22:00 Temperature Pulse Rate 82 73 Respiratory 18 16 18 Rate Blood Pressure 139/78 157/80 (mmHg) O2 Sat by Pulse 94 93 Oximetry 03/02/17 03/02/17 03/02/17 22:30 23:00 23:14 Temperature Pulse Rate 73 86 Respiratory 20 20 21 Rate Blood Pressure 137/62 137/67 (mmHg) O2 Sat by Pulse 93 94 Oximetry 03/02/17 03/02/17 03/03/17 23:30 23:46 00:00 Temperature 99.0 F Pulse Rate 75 87 Respiratory 21 21 Rate Blood Pressure 133/74 (mmHg) O2 Sat by Pulse 92 93 Oximetry 03/03/17 03/03/17 03/03/17 00:01 00:11 00:30 Temperature Pulse Rate 88 86 80 Respiratory 22 22 23 Rate Blood Pressure 152/82 145/67 (mmHg) O2 Sat by Pulse 93 92 93 Oximetry 03/03/17 03/03/17 03/03/17 00:45 01:00 01:30 Temperature Pulse Rate 87 88 Respiratory 16 22 21 Rate Blood Pressure 146/78 149/81 (mmHg) O2 Sat by Pulse 93 95 Oximetry 03/03/17 03/03/17 03/03/17 01:47 02:00 02:30 Temperature Pulse Rate 87 86 Respiratory 20 20 20 Rate Blood Pressure 154/83 154/80 (mmHg) O2 Sat by Pulse 95 94 Oximetry 03/03/17 03/03/17 03/03/17 03:00 03:30 03:51 Temperature 99.0 F Pulse Rate 86 86 Respiratory 19 20 Rate Blood Pressure 149/80 141/72 (mmHg) O2 Sat by Pulse 94 94 Oximetry 03/03/17 03/03/17 03/03/17 04:00 04:30 05:00 Temperature Pulse Rate 79 79 Respiratory 19 18 22 Rate Blood Pressure 148/74 137/70 (mmHg) O2 Sat by Pulse 83 94 Oximetry 03/03/17 03/03/17 03/03/17 05:51 06:00 06:17 Temperature Pulse Rate Respiratory 18 18 18 Rate Blood Pressure 146/75 (mmHg) O2 Sat by Pulse Oximetry 03/03/17 03/03/17 03/03/17 06:30 07:00 07:30 Temperature Pulse Rate Respiratory 18 19 19 Rate Blood Pressure 141/73 145/75 141/73 (mmHg) O2 Sat by Pulse Oximetry 03/03/17 03/03/17 03/03/17 07:54 08:00 09:00 Temperature 98.7 F Pulse Rate 82 Respiratory 18 18 Rate Blood Pressure 131/93 143/83 (mmHg) O2 Sat by Pulse 94 Oximetry 03/03/17 03/03/17 03/03/17 10:00 11:00 12:00 Temperature 99 F Pulse Rate 86 75 80 Respiratory 17 22 20 Rate Blood Pressure 148/71 152/70 154/82 (mmHg) O2 Sat by Pulse 96 93 94 Oximetry 03/03/17 03/03/17 03/03/17 13:00 14:00 14:02 Temperature Pulse Rate 85 77 78 Respiratory 24 19 22 Rate Blood Pressure 130/87 142/76 (mmHg) O2 Sat by Pulse 96 96 95 Oximetry Oxygen Devices in Use Now: Nasal Cannula Appearance: sitting up in bed, NAD Eyes: No Scleral Icterus, PERRLA Ears/Nose/Mouth/Throat: Clear Oropharnyx, Mucous Membranes Moist Neck: NL Appearance and Movements; NL JVP, Trachea Midline Respiratory: Symmetrical Chest Expansion and Respiratory Effort, Clear to Auscultation Cardiovascular: RRR Abdominal: NL Sounds; No Tenderness; No Distention, No Hepatosplenomegaly Lymphatic: No Cervical Adenopathy Extremities: No Edema, No Clubbing, Cyanosis Skin: No Rash or Ulcers Neurological: Alert and Oriented x 3 Result Diagrams: 03/02/17 06:20 03/03/17 05:46 Microbiology and Other Data: Microbiology 03/03/17 09:33 Stool Occult Blood (KORIN) - Final Stool 03/02/17 13:45 Nasal Screen MRSA (PCR)(KORIN) - Final Nasal Mrsa Negative Assess/Plan/Problems-Billing Assessment: 67 yo F h/o HTN, DM2, HLD p/w chest pain found with NSTEMI - Patient Problems (1) Non-STEMI (non-ST elevated myocardial infarction) Comment: Personally performed rectal exam to eval for occult blood. Procedure required 2 attempts to obtain adequate sample. Result returned positive for occult blood. Discussed with risk modeler Dr. Brown. In setting of history of microcytic anemia he does not feel risk of PCI with stent outweigh risk of EGD to r/o slow bleed. GI consulted. They do not feel there is benefit to EGD at this time in setting of escalating troponins and long history of anemia. Discussed above with pt and her daughter. Plan will include waiting for troponins to peak, perform EGD, then PCI. Offered to transfer to another institution if an accepting interventionalist could be found. They declined and are happy with current plan as is. Restart full dose lovenox metoprolol, cardizem, nitro gtt high dose statin ASA trend troponins (2) Diabetes Comment: lispro SS (3) Hypertension Comment: metoprolol, cardizem, nitro gtt (4) Anemia Comment: check ferritin, iron SPEP, UPEP (5) DVT prophylaxis Comment: Full dose lovenox
[2017-03-03] MEDS: Atorvastatin* 80 MG TAB PO SCH (17:27)
--- NOTE | 2017-03-03 18:31 | CONS ---
CONSULTATION REPORT: DATE OF CONSULT: 03/03/17 REQUESTING PHYSICIAN: Dr. Victor. INDICATION: Heme-positive stool. NARRATIVE: Ms. Rees is a pleasant 67-year-old female who is admitted with myocardial infarction. She does need a cardiac catheterization. Prior to the cardiac catheterization, the patient did have her stool guaiac, it was positive. She did have a colonoscopy 60 days ago that was normal except for internal hemorrhoids and diverticulosis. The patient denies any blood in her stool. She denies any vomiting or abdominal pain. She does have nausea. She denies any NSAIDs prior to this admission. PAST MEDICAL HISTORY: Significant for: 1. Diabetes. 2. Hypertension. 3. Hyperlipidemia. SURGICAL HISTORY: Includes: 1. Shoulder replacement. 2. Cataract surgery. 3. . 4. Kidney stones. MEDICATIONS: Prior to admission include: 1. Lopressor. 2. Lisinopril. 3. Insulin. 4. Cymbalta. 5. Lipitor. ALLERGIES: None. FAMILY HISTORY: Hypertension, kidney stones. SOCIAL HISTORY: She does not smoke or drink. REVIEW OF SYSTEMS: Twelve systems were reviewed, other than that mentioned in the HPI were unremarkable. PHYSICAL EXAM: Temperature 99.3, blood pressure is 148/73, pulse is 76. General: Chronically ill appearing female in no apparent distress. Alert, oriented, pleasant, and fluent. HEENT: Mucous membranes are moist without lesions, ulcers, or exudate. Neck is supple. Trachea is midline. Head is normocephalic, atraumatic. Heart: Regular rate and rhythm. Lungs: Clear to auscultation. Abdomen: Positive bowel sounds. Soft, nontender, nondistended. No hepatosplenomegaly, masses, rebound, or guarding. Skin is warm and dry. DIAGNOSTIC STUDIES/LAB DATA: Of note, hemoglobin is 11.5, this is at her baseline. BUN is 20. Troponin went from 2.49 to 3.04 to 6.83 to 7.89 this morning. ASSESSMENT AND PLAN: This is a 67-year-old female with myocardial infarction and heme-positive stool. She had a negative colonoscopy just 2 months ago. I doubt any upper GI pathology at this point to explain the heme-positive stool. It could be related to hemorrhoids that she has had on her colonoscopy last time. Inpatient Services Director has requested an endoscopy to rule out any upper GI pathology. I think at this point as of today, given her increasing troponin, she is at high risk of complications from the procedure mainly due to the sedation. I do not think now is the time to do the procedure. Given her rising troponins, I think we need to wait until the troponins start coming down. This was discussed with Dr. Herrera and Dr. Victor. We will continue to follow along. [id number]/[facility] #: [id number] [facility] CENTERPriscila
[2017-03-03] MEDS: Enoxaparin(*) 100 MG/ML SYR SUBCUT SCH (21:02)
[2017-03-04] MEDS: oxyCODONE/Acetamin 5/325 MG* TAB PO PRN (00:04)
[2017-03-04] MEDS: Diltiazem TAB* 30 MG PO SCH ×4 (00:04→18:21)
[2017-03-04] MEDS: NS 0.9% 1000 ML* 1,000 ML IV SCH ×2 (04:19→14:28)
[2017-03-04 04:31] LABS: Hematocrit 32 % (35-47); Hemoglobin 10.1 g/dl (12.0-16.0); Mean Corpuscular HGB Conc 32 g/dl (31-36); Mean Corpuscular Hemoglobin 23 pg (27-31); Mean Platelet Volume 7 um3 (7.4-10.4); Red Blood Count 4.37 10^6/ul (4.0-5.4); Red Cell Distribution Width 17 % (10.5-15); White Blood Count 6.9 10^3/ul (3.5-10.8)
[2017-03-04 04:32] LABS: Comments Flag Yes
[2017-03-04 04:33] LABS: Mean Corpuscular Volume 73 fL (80-97)
[2017-03-04 04:44] LABS: BUN/Creatinine Ratio 19.2 (8-20); Calcium 8.3 mg/dL (8.6-10.3); EGFR African American 94.7 (>60); EGFR Non-African American 73.7 (>60); Potassium 3.9 mmol/L (3.5-5.0)
[2017-03-04 04:49] LABS: Troponin I 3.77 ng/mL (<0.04)
[2017-03-04 05:36] LABS: Ferritin 63.9 ng/mL (11-307)
[2017-03-04] MEDS: Metoprolol Tartrate TAB* 50 mg PO SCH ×3 (05:46→21:35)
[2017-03-04] MEDS: Enoxaparin(*) 100 MG/ML SYR SUBCUT SCH ×2 (09:14→21:35)
[2017-03-04] MEDS: Lisinopril TAB* 10 MG PO SCH (09:14)
[2017-03-04] MEDS: Aspirin EC Low Dose* 81 MG TAB.EC PO SCH (09:14)
[2017-03-04] MEDS: Insulin LISPRO* 1 UNITS UNIT SUBCUT SCH ×3 (09:14→15:50)
[2017-03-04] MEDS: DULoxetine DR CAP* 30 MG CAP.DR PO SCH (09:14)
[2017-03-04] MEDS ORDERED: Ferrous Sulfate TAB* 325 MG PO ONE (10:03)
[2017-03-04] MEDS ORDERED: PREMIX* 0 ML ONE (14:09)
[2017-03-04] MEDS: nitroGLYCERIN DRIP* 25,000 MCG in PREMIX* 0 ML IV SCH (14:25)
[2017-03-04] MEDS ORDERED: Midazolam* 1 MG/ML 10 ML VIAL (10 MG) ONE (15:58)
[2017-03-04] MEDS ORDERED: fentaNYL* 50 MCG/ML 2 ML VIAL (100 MCG VIAL) ONE (15:59)
--- NOTE | 2017-03-04 17:12 | PN ---
Subjective Date of Service: 03/04/17 Interval History: Seen and examined this AM No chest pain or shoulder discomfort overnight no SOB, LH or other symptoms no SHERMAN Objective Active Medications: Aspirin (Aspirin Ec Low Dose*) 81 mg PO DAILY [facility] Last Admin: 03/04/17 09:14 Dose: 81 mg Atorvastatin Calcium (Lipitor*) 80 mg PO 1700 [facility] Last Admin: 03/03/17 17:27 Dose: 80 mg Dextrose (D50w Syringe 50 Ml*) 12.5 gm IV PUSH .FOR FS < 60 - SS PRN PRN Reason: FS < 60 Diltiazem HCl (Cardizem Tab*) 30 mg PO Q6HR [facility] Last Admin: 03/04/17 13:07 Dose: 30 mg Duloxetine HCl (Cymbalta Cap*) 30 mg PO QAM [facility] Last Admin: 03/04/17 09:14 Dose: 30 mg Enoxaparin Sodium (Lovenox(*)) 100 mg SUBCUT Q12H [facility] Stop: 03/04/17 23:59 Last Admin: 03/04/17 09:14 Dose: 100 mg Hydralazine HCl (Apresoline Iv*) 5 mg IV SLOW PU Q6H PRN PRN Reason: SBP > 170 Last Admin: 03/02/17 09:26 Dose: 5 mg Nitroglycerin/Dextrose 25,000 (mcg/ IV Solution) 250 mls @ 6 mls/hr IV .( Initial Rate) YUDI; 10 MCG/MIN PRN Reason: Protocol Last Admin: 03/04/17 14:25 Dose: 3 mls/hr Sodium Chloride (Ns 0.9% 1000 Ml*) 1,000 mls @ 100 mls/hr IV .per rate [facility] Insulin Human Lispro (Humalog*) 0 - 15 units SUBCUT AC [facility] PRN Reason: Protocol Last Admin: 03/04/17 15:50 Dose: Not Given Lisinopril (Prinivil Tab*) 10 mg PO 0900 [facility] Last Admin: 03/04/17 09:14 Dose: 10 mg Metoprolol Tartrate (Lopressor Tab*) 50 mg PO Q8HR [facility] Last Admin: 03/04/17 14:28 Dose: 50 mg Omeprazole (Prilosec Cap*) 40 mg PO DAILY [facility] Oxycodone/Acetaminophen (Percocet 5/325 Tab*) 1 tab PO Q4H PRN PRN Reason: Pain Last Admin: 03/04/17 00:04 Dose: 1 tab Vital Signs 03/03/17 03/03/17 03/03/17 18:00 19:00 19:41 Temperature 98.6 F Pulse Rate 80 88 Respiratory 21 19 Rate Blood Pressure 169/77 152/74 (mmHg) O2 Sat by Pulse 94 96 Oximetry 03/03/17 03/03/17 03/03/17 20:00 21:00 21:02 Temperature Pulse Rate 86 85 87 Respiratory 16 24 19 Rate Blood Pressure 158/76 142/69 (mmHg) O2 Sat by Pulse 94 94 94 Oximetry 03/03/17 03/03/17 03/03/17 22:00 23:00 23:34 Temperature 98.8 F Pulse Rate 74 72 Respiratory 21 18 Rate Blood Pressure 138/69 111/53 (mmHg) O2 Sat by Pulse 92 92 Oximetry 03/04/17 03/04/17 03/04/17 00:00 00:01 00:04 Temperature Pulse Rate Respiratory 18 17 25 Rate Blood Pressure 160/59 (mmHg) O2 Sat by Pulse Oximetry 03/04/17 03/04/17 03/04/17 00:10 01:00 02:00 Temperature Pulse Rate 79 80 76 Respiratory 24 4 17 Rate Blood Pressure 140/73 129/68 (mmHg) O2 Sat by Pulse 95 93 91 Oximetry 03/04/17 03/04/17 03/04/17 03:00 03:35 04:00 Temperature 98.3 F Pulse Rate 72 Respiratory 9 13 Rate Blood Pressure 139/66 129/63 (mmHg) O2 Sat by Pulse 93 Oximetry 03/04/17 03/04/17 03/04/17 05:00 06:00 07:00 Temperature Pulse Rate 72 73 63 Respiratory 13 14 15 Rate Blood Pressure 140/63 141/62 130/62 (mmHg) O2 Sat by Pulse 95 94 93 Oximetry 03/04/17 03/04/17 03/04/17 07:37 08:00 09:00 Temperature 98.2 F Pulse Rate 65 74 Respiratory 16 14 Rate Blood Pressure 124/60 129/65 (mmHg) O2 Sat by Pulse 94 96 Oximetry 03/04/17 03/04/17 03/04/17 10:00 10:04 11:00 Temperature Pulse Rate 71 71 74 Respiratory 20 18 17 Rate Blood Pressure 140/70 138/65 (mmHg) O2 Sat by Pulse 95 94 96 Oximetry 03/04/17 03/04/17 03/04/17 11:11 12:00 12:11 Temperature 98.8 F Pulse Rate Respiratory 22 Rate Blood Pressure 147/69 (mmHg) O2 Sat by Pulse Oximetry 03/04/17 03/04/17 03/04/17 13:00 13:02 14:00 Temperature Pulse Rate 75 74 77 Respiratory 17 14 18 Rate Blood Pressure 151/79 154/73 (mmHg) O2 Sat by Pulse 98 97 98 Oximetry 03/04/17 03/04/17 03/04/17 15:00 15:35 15:39 Temperature 98.5 F Pulse Rate Respiratory 21 21 Rate Blood Pressure 145/70 (mmHg) O2 Sat by Pulse Oximetry 03/04/17 03/04/17 03/04/17 16:00 16:10 16:16 Temperature Pulse Rate 69 74 82 Respiratory 20 19 21 Rate Blood Pressure 142/74 129/59 133/109 (mmHg) O2 Sat by Pulse 96 95 94 Oximetry 03/04/17 03/04/17 03/04/17 16:18 16:20 16:25 Temperature Pulse Rate 81 80 79 Respiratory 21 23 25 Rate Blood Pressure 127/57 123/60 128/59 (mmHg) O2 Sat by Pulse 94 93 92 Oximetry 03/04/17 03/04/17 16:30 16:39 Temperature Pulse Rate 78 Respiratory 23 30 Rate Blood Pressure 114/55 (mmHg) O2 Sat by Pulse 91 Oximetry Oxygen Devices in Use Now: None Appearance: NAD, sitting in chair Eyes: No Scleral Icterus, PERRLA Ears/Nose/Mouth/Throat: Mucous Membranes Moist Neck: NL Appearance and Movements; NL JVP, Trachea Midline Respiratory: Symmetrical Chest Expansion and Respiratory Effort, Clear to Auscultation Cardiovascular: RRR Abdominal: NL Sounds; No Tenderness; No Distention, No Hepatosplenomegaly Lymphatic: No Cervical Adenopathy Extremities: No Edema, No Clubbing, Cyanosis Skin: No Rash or Ulcers Neurological: Alert and Oriented x 3 Result Diagrams: 03/04/17 04:20 03/04/17 04:20 Microbiology and Other Data: Microbiology 03/03/17 09:33 Stool Occult Blood (KORIN) - Final Stool 03/02/17 13:45 Nasal Screen MRSA (PCR)([facility]) - Final Nasal Mrsa Negative Assess/Plan/Problems-Billing Assessment: 67 yo F h/o HTN, DM2, HLD p/w chest pain found with NSTEMI - Patient Problems (1) Non-STEMI (non-ST elevated myocardial infarction) Comment: Notes reviewed - EGD wnl without e/o bleeding source. PCI rescheduled for tomorrow. Pt asymptomatic. Continue medications as outlined below. Restart full dose lovenox metoprolol, cardizem, nitro gtt high dose statin ASA (2) Diabetes Comment: lispro SS (3) Hypertension Comment: metoprolol, cardizem, nitro gtt (4) Anemia Comment: iron deficiency anemia SPEP, UPEP pending (5) DVT prophylaxis Comment: Full dose lovenox
[2017-03-04] MEDS: Atorvastatin* 80 MG TAB PO SCH (21:02)
[2017-03-04] MEDS: Omeprazole CAP* 20 MG PO SCH (21:35)
--- NOTE | 2017-03-04 23:10 | PRO ---
AMENDED REPORT TO CORRECT ACCOUNT - ESIGNED BEFORE ADJUSTMENTS CC: Anjum Kincaid MD* DATE OF PROCEDURE: 03/04/17 - ROOM #431 DATE OF : 50 PROCEDURE: Gastroscopy. MEDICINE USED: Versed 4 mg IV. NARRATIVE: This is a 67-year-old woman admitted with acute coronary syndrome. She is awaiting getting a cardiac catheterization with stent placement. She was found to be guaiac-positive and had a mild anemia. She did undergo a colonoscopy a couple of months ago, which was normal. She is not having any other digestive symptoms. For this reason, upper endoscopy was recommended. DESCRIPTION OF PROCEDURE: After the procedure was discussed with the patient and her daughter, risks and benefits were outlined, written consent was obtained ; the patient was placed in the left lateral decubitus position; and conscious sedation was administered. A video diagnostic gastroscope was inserted orally and passed very carefully into the esophagus. The esophagus, stomach, and duodenum to the second to third portion were well visualized. The patient tolerated the procedure well and there were no immediate complications. FINDINGS: The esophagus was normal. There was no evidence of erosive change, stricture, or Hernandez's esophagus. The stomach was entered and upon retroflexion, there was no evidence of a hiatal hernia. The cardia, fundus, and body of the stomach were unremarkable. There was some very minimal inflammatory change appreciated in the gastric antrum with slight erythema, but no mucosal break or ulceration. The pylorus was normal and patent. The duodenal bulb was normal and the second to third portion of the duodenum was normal with a normal folding pattern. CONCLUSION: Minimal antral gastritis as described above. No significant consequence, otherwise normal upper endoscopy. RECOMMENDATION: Given this finding, I think the patient could certainly proceed with planned cardiac catheterization, stent placement, and antiplatelet therapy. [id number]/[facility] #: [id number] [facility]
[2017-03-05] MEDS: Diltiazem TAB* 30 MG PO SCH ×3 (00:37→12:10)
[2017-03-05] MEDS: Metoprolol Tartrate TAB* 50 mg PO SCH (06:45)
[2017-03-05] MEDS ORDERED: NS 0.9% 1000 ML* 1,000 ML IV SCH (08:00)
[2017-03-05] MEDS: Insulin LISPRO* 1 UNITS UNIT SUBCUT SCH ×3 (08:32→17:14)
[2017-03-05] MEDS: DULoxetine DR CAP* 30 MG CAP.DR PO SCH (08:34)
[2017-03-05] MEDS: Omeprazole CAP* 20 MG PO SCH (08:35)
[2017-03-05] MEDS: Lisinopril TAB* 10 MG PO SCH (08:35)
[2017-03-05] MEDS: Aspirin EC Low Dose* 81 MG TAB.EC PO SCH (08:35)
[2017-03-05] MEDS ORDERED: fentaNYL* 50 MCG/ML 2 ML VIAL (100 MCG VIAL) ONE (09:19)
[2017-03-05] MEDS ORDERED: VERAPAMIL 2.5 MG/ML 4 ML VIAL ONE (09:20)
[2017-03-05] MEDS ORDERED: Midazolam* 1 MG/ML 5 ML VIAL (5 MG) ONE (09:20)
[2017-03-05] MEDS ORDERED: Heparin(*) 1000 UNIT/ML 10 ML VIAL CATH LAB IV ONE (09:20)
[2017-03-05] MEDS ORDERED: Heparin 2 UNITS/ML IVPREMIX* 2,000 ML IV ONE (09:20)
[2017-03-05] MEDS ORDERED: Lidocaine 1% INJ* 10 MG/ML 30 ML SDV ONE (09:21)
[2017-03-05] MEDS ORDERED: nitroGLYCERIN DRIP* 250 ML ONE (09:21)
[2017-03-05] MEDS ORDERED: Iohexol 350 (CONTRAST) 200 ML MDV IV ONE (09:21)
[2017-03-05] MEDS: Ferrous Sulfate TAB* 325 MG PO SCH ×2 (15:47→20:00)
[2017-03-05] MEDS: Diltiazem CD CAP* 120 MG PO SCH (15:48)
[2017-03-05] MEDS: Clopidogrel TAB* 75 MG PO SCH (15:48)
[2017-03-05] MEDS: Metoprolol Succinate XL TAB* 50 MG PO SCH ×2 (15:48→20:02)
--- NOTE | 2017-03-05 16:19 | PN ---
Subjective Date of Service: 03/05/17 Interval History: No events overnight s/p [facility] 03/[address] Brown without intervention transfer to with potential d/c in AM if remains asymptomatic Objective Active Medications: Aspirin (Aspirin Ec Low Dose*) 81 mg PO DAILY [facility] Last Admin: 03/05/17 08:35 Dose: 81 mg Atorvastatin Calcium (Lipitor*) 80 mg PO 1700 [facility] Last Admin: 03/04/17 21:02 Dose: 80 mg Clopidogrel Bisulfate (Plavix Tab*) 75 mg PO DAILY [facility] Last Admin: 03/05/17 15:48 Dose: 75 mg Dextrose (D50w Syringe 50 Ml*) 12.5 gm IV PUSH .FOR FS < 60 - SS PRN PRN Reason: FS < 60 Diltiazem HCl (Cardizem Cd Cap*) 120 mg PO DAILY [facility] Last Admin: 03/05/17 15:48 Dose: 120 mg Duloxetine HCl (Cymbalta Cap*) 30 mg PO QAM [facility] Last Admin: 03/05/17 08:34 Dose: 30 mg Ferrous Sulfate (Ferrous Sulfate Tab*) 325 mg PO BID [facility] Last Admin: 03/05/17 15:47 Dose: 325 mg Hydralazine HCl (Apresoline Iv*) 5 mg IV SLOW PU Q6H PRN PRN Reason: SBP > 170 Last Admin: 03/02/17 09:26 Dose: 5 mg Sodium Chloride (Ns 0.9% 1000 Ml*) 1,000 mls @ 100 mls/hr IV .per rate [facility] Insulin Human Lispro (Humalog*) 0 - 15 units SUBCUT AC [facility] PRN Reason: Protocol Last Admin: 03/05/17 12:10 Dose: 3 units Lisinopril (Prinivil Tab*) 10 mg PO 0900 [facility] Last Admin: 03/05/17 08:35 Dose: 10 mg Metoprolol Succinate (Toprol Xl Tab*) 50 mg PO BID [facility] Last Admin: 03/05/17 15:48 Dose: 50 mg Oxycodone/Acetaminophen (Percocet 5/325 Tab*) 1 tab PO Q4H PRN PRN Reason: Pain Last Admin: 03/04/17 00:04 Dose: 1 tab Pantoprazole Sodium (Protonix Tab (Nf)) 20 mg PO DAILY [facility] Vital Signs 03/04/17 03/04/17 03/04/17 16:16 16:18 16:20 Temperature Pulse Rate 82 81 80 Respiratory 21 21 23 Rate Blood Pressure 133/109 127/57 123/60 (mmHg) O2 Sat by Pulse 94 94 93 Oximetry 03/04/17 03/04/17 03/04/17 16:25 16:30 16:39 Temperature Pulse Rate 79 78 Respiratory 25 23 30 Rate Blood Pressure 128/59 114/55 (mmHg) O2 Sat by Pulse 92 91 Oximetry 03/04/17 03/04/17 03/04/17 16:45 17:00 17:17 Temperature Pulse Rate 74 77 73 Respiratory 35 16 22 Rate Blood Pressure 114/51 131/94 126/60 (mmHg) O2 Sat by Pulse 91 92 95 Oximetry 03/04/17 03/04/17 03/04/17 17:25 17:30 17:45 Temperature Pulse Rate 72 72 Respiratory 17 21 17 Rate Blood Pressure 122/65 132/61 (mmHg) O2 Sat by Pulse 94 96 Oximetry 03/04/17 03/04/17 03/04/17 17:55 18:00 18:15 Temperature Pulse Rate 73 74 Respiratory 17 17 21 Rate Blood Pressure 131/60 137/71 (mmHg) O2 Sat by Pulse 95 94 Oximetry 03/04/17 03/04/17 03/04/17 18:30 18:45 19:00 Temperature Pulse Rate 81 80 83 Respiratory 19 20 21 Rate Blood Pressure 136/68 116/96 122/66 (mmHg) O2 Sat by Pulse 97 95 96 Oximetry 03/04/17 03/04/17 03/04/17 19:09 19:15 19:30 Temperature Pulse Rate 86 86 Respiratory 20 18 22 Rate Blood Pressure 125/64 125/61 (mmHg) O2 Sat by Pulse 97 94 Oximetry 03/04/17 03/04/17 03/04/17 19:45 19:52 20:00 Temperature 98.6 F Pulse Rate 87 84 Respiratory 20 24 Rate Blood Pressure 129/55 132/58 (mmHg) O2 Sat by Pulse 95 94 Oximetry 03/04/17 03/04/17 03/04/17 20:15 21:00 22:00 Temperature Pulse Rate 84 81 Respiratory 23 15 20 Rate Blood Pressure 125/60 138/69 (mmHg) O2 Sat by Pulse 95 94 Oximetry 03/04/17 03/04/17 03/04/17 23:00 23:08 23:16 Temperature Pulse Rate 78 74 Respiratory 22 23 21 Rate Blood Pressure 138/64 (mmHg) O2 Sat by Pulse 95 94 Oximetry 03/04/17 03/05/17 03/05/17 23:53 00:00 00:01 Temperature 98.4 F Pulse Rate 71 71 Respiratory 20 18 Rate Blood Pressure 132/64 (mmHg) O2 Sat by Pulse 93 94 Oximetry 03/05/17 03/05/17 03/05/17 01:00 01:01 02:00 Temperature Pulse Rate 78 Respiratory 17 18 Rate Blood Pressure 132/64 135/71 118/59 (mmHg) O2 Sat by Pulse 91 Oximetry 03/05/17 03/05/17 03/05/17 03:00 03:31 04:00 Temperature 99.3 F Pulse Rate 74 76 Respiratory 14 19 Rate Blood Pressure 120/60 120/71 (mmHg) O2 Sat by Pulse 94 94 Oximetry 03/05/17 03/05/17 03/05/17 05:00 06:00 07:00 Temperature Pulse Rate 74 79 75 Respiratory 16 20 15 Rate Blood Pressure 133/64 121/53 100/54 (mmHg) O2 Sat by Pulse 96 92 95 Oximetry 03/05/17 03/05/17 03/05/17 07:24 08:00 09:00 Temperature 98.7 F Pulse Rate 65 73 Respiratory 19 21 Rate Blood Pressure 111/59 137/66 (mmHg) O2 Sat by Pulse 94 95 Oximetry 03/05/17 03/05/17 03/05/17 10:00 11:00 11:04 Temperature 98 F Pulse Rate Respiratory 16 16 18 Rate Blood Pressure 130/60 (mmHg) O2 Sat by Pulse Oximetry 03/05/17 03/05/17 03/05/17 11:08 11:19 11:25 Temperature Pulse Rate 74 76 Respiratory 20 17 20 Rate Blood Pressure 130/67 130/67 (mmHg) O2 Sat by Pulse 96 Oximetry 03/05/17 03/05/17 03/05/17 11:30 11:34 11:44 Temperature 98.8 F Pulse Rate 71 71 Respiratory 14 16 Rate Blood Pressure 136/68 136/68 (mmHg) O2 Sat by Pulse 96 Oximetry 03/05/17 03/05/17 03/05/17 11:47 11:49 12:00 Temperature Pulse Rate 73 73 70 Respiratory 19 16 16 Rate Blood Pressure 130/61 130/61 129/66 (mmHg) O2 Sat by Pulse 96 96 Oximetry 03/05/17 03/05/17 03/05/17 12:15 12:19 12:30 Temperature Pulse Rate 68 71 71 Respiratory 17 16 14 Rate Blood Pressure 141/63 143/66 143/66 (mmHg) O2 Sat by Pulse 95 95 Oximetry 03/05/17 03/05/17 03/05/17 12:45 12:49 13:00 Temperature Pulse Rate 78 78 73 Respiratory 19 16 14 Rate Blood Pressure 146/79 152/70 152/70 (mmHg) O2 Sat by Pulse 96 97 Oximetry 03/05/17 03/05/17 03/05/17 13:15 13:30 13:49 Temperature Pulse Rate 76 85 80 Respiratory 19 17 22 Rate Blood Pressure 143/77 158/126 148/67 (mmHg) O2 Sat by Pulse 96 97 94 Oximetry 03/05/17 03/05/17 03/05/17 14:00 14:49 15:00 Temperature Pulse Rate 78 73 83 Respiratory 22 18 16 Rate Blood Pressure 148/67 153/76 153/76 (mmHg) O2 Sat by Pulse 94 97 98 Oximetry 03/05/17 03/05/17 15:04 15:46 Temperature 98.3 F 98.3 F Pulse Rate Respiratory Rate Blood Pressure (mmHg) O2 Sat by Pulse Oximetry Oxygen Devices in Use Now: None Appearance: NAD Eyes: No Scleral Icterus, PERRLA Ears/Nose/Mouth/Throat: NL Teeth, Lips, Gums, Clear Oropharnyx, Mucous Membranes Moist Neck: NL Appearance and Movements; NL JVP, Trachea Midline Respiratory: Symmetrical Chest Expansion and Respiratory Effort, Clear to Auscultation Cardiovascular: NL Sounds; No Murmurs; No JVD, RRR Abdominal: NL Sounds; No Tenderness; No Distention, No Hepatosplenomegaly Lymphatic: No Cervical Adenopathy Extremities: No Edema, No Clubbing, Cyanosis Skin: No Rash or Ulcers Neurological: Alert and Oriented x 3 Result Diagrams: 03/04/17 04:20 03/04/17 04:20 Microbiology and Other Data: Microbiology 03/03/17 09:33 Stool Occult Blood (KORIN) - Final Stool 03/02/17 13:45 Nasal Screen MRSA (PCR)(KORIN) - Final Nasal Mrsa Negative Assess/Plan/Problems-Billing Assessment: 67 yo F h/o HTN, DM2, HLD p/w chest pain found with NSTEMI s/p [facility] without intervention 03/05 - Patient Problems (1) Non-STEMI (non-ST elevated myocardial infarction) Comment: [facility] with full report pending. Regional wall motion abnormalites and long LAD 60% that may warrant further evaluation with counter former as outpatient. Suspect thrombus that resolved on heparin prior to cath. For now addition of plavix to ASA. c/w metoprolol, cardizem, high dose statin (2) Diabetes Comment: lispro SS (3) Hypertension Comment: metoprolol, cardizem (4) Anemia Comment: iron deficiency anemia SPEP, UPEP pending (5) DVT prophylaxis Comment: HSQ Status and Disposition: Likely home tomorrow if stable
[2017-03-05 17:04] LABS: Albumin 2.5 g/dL (3.4-4.7); Gamma Globulin 0.6 g/dL (0.6-1.6); Total Protein(PEP) 5.5 g/dL (6.3 - 7.9)
[2017-03-05] MEDS: Atorvastatin* 80 MG TAB PO SCH (17:14)
[2017-03-05] MEDS: NS 0.9% 1000 ML* 1,000 ML IV SCH (17:45)
[2017-03-05] MEDS ORDERED: Insulin GLARGINE(*) 1 UNITS UNIT SUBCUT SCH (21:00)
[2017-03-05] MEDS: Heparin VIAL(*) 5000 UNITS/ML VIAL (FIVE THOUSAND) SUBCUT SCH (21:40)
[2017-03-06] MEDS: Heparin VIAL(*) 5000 UNITS/ML VIAL (FIVE THOUSAND) SUBCUT SCH (05:13)
[2017-03-06] MEDS: NS 0.9% 1000 ML* 1,000 ML IV SCH (05:35)
[2017-03-06 08:32] LABS: Comments Flag Yes; Hematocrit 36 % (35-47); Hemoglobin 11.2 g/dl (12.0-16.0); Mean Corpuscular HGB Conc 31 g/dl (31-36); Mean Corpuscular Hemoglobin 23 pg (27-31); Mean Corpuscular Volume 74 fL (80-97); Mean Platelet Volume 8 um3 (7.4-10.4); Red Blood Count 4.89 10^6/ul (4.0-5.4); Red Cell Distribution Width 18 % (10.5-15); White Blood Count 5.7 10^3/ul (3.5-10.8)
[2017-03-06] MEDS: Metoprolol Succinate XL TAB* 50 MG PO SCH (08:50)
[2017-03-06] MEDS: Clopidogrel TAB* 75 MG PO SCH (08:50)
[2017-03-06] MEDS: Diltiazem CD CAP* 120 MG PO SCH (08:50)
[2017-03-06] MEDS: Aspirin EC Low Dose* 81 MG TAB.EC PO SCH (08:50)
[2017-03-06] MEDS: Ferrous Sulfate TAB* 325 MG PO SCH (08:50)
[2017-03-06] MEDS: Lisinopril TAB* 10 MG PO SCH (08:50)
[2017-03-06] MEDS: DULoxetine DR CAP* 30 MG CAP.DR PO SCH (08:50)
[2017-03-06 08:51] VITALS: BP 144/68
[2017-03-06] MEDS: Insulin LISPRO* 1 UNITS UNIT SUBCUT SCH (08:51)
[2017-03-06 08:53] LABS: Albumin 3.5 g/dL (3.2-5.2); BUN/Creatinine Ratio 17.2 (8-20); EGFR African American 83.5 (>60); EGFR Non-African American 64.9 (>60); HDL Cholesterol 24.8 mg/dL; Potassium 3.7 mmol/L (3.5-5.0); Total Bilirubin 0.8 mg/dL (0.2-1.0); Total Protein 6.5 g/dL (6.4-8.9)
[2017-03-06] MEDS ORDERED: Pantoprazole TAB (NF) 20 MG TAB PO SCH (09:00)
[2017-03-06 09:01] LABS: Troponin I 1.14 ng/mL (<0.04)
[2017-03-06] MEDS ORDERED: glipiZIDE TAB* 5 MG PO ONE (10:34)
--- NOTE | 2017-03-06 10:49 | DCNOTE ---
Subjective Date of Service: 03/06/17 Interval History: No chest discomfort, SOB. No new c/o. Anxious to go home. Objective Active Medications: Aspirin (Aspirin Ec Low Dose*) 81 mg PO DAILY [facility] Last Admin: 03/06/17 08:50 Dose: 81 mg Atorvastatin Calcium (Lipitor*) 80 mg PO 1700 [facility] Last Admin: 03/05/17 17:14 Dose: 80 mg Clopidogrel Bisulfate (Plavix Tab*) 75 mg PO DAILY [facility] Last Admin: 03/06/17 08:50 Dose: 75 mg Dextrose (D50w Syringe 50 Ml*) 12.5 gm IV PUSH .FOR FS < 60 - SS PRN PRN Reason: FS < 60 Diltiazem HCl (Cardizem Cd Cap*) 120 mg PO DAILY [facility] Last Admin: 03/06/17 08:50 Dose: 120 mg Duloxetine HCl (Cymbalta Cap*) 30 mg PO QAM [facility] Last Admin: 03/06/17 08:50 Dose: 30 mg Ferrous Sulfate (Ferrous Sulfate Tab*) 325 mg PO DAILY [facility] Heparin Sodium (Porcine) (Heparin Vial(*)) 5,000 units SUBCUT Q8HR [facility] Last Admin: 03/06/17 05:13 Dose: 5,000 units Hydralazine HCl (Apresoline Iv*) 5 mg IV SLOW PU Q6H PRN PRN Reason: SBP > 170 Last Admin: 03/02/17 09:26 Dose: 5 mg Insulin Glargine (Lantus(*)) 10 units SUBCUT Q24H [facility] Last Admin: 03/05/17 21:38 Dose: 10 units Insulin Human Lispro (Humalog*) 0 - 15 units SUBCUT AC [facility] PRN Reason: Protocol Last Admin: 03/06/17 08:51 Dose: 6 units Lisinopril (Prinivil Tab*) 10 mg PO 0900 [facility] Last Admin: 03/06/17 08:50 Dose: 10 mg Metoprolol Succinate (Toprol Xl Tab*) 50 mg PO BID [facility] Last Admin: 03/06/17 08:50 Dose: 50 mg Oxycodone/Acetaminophen (Percocet 5/325 Tab*) 1 tab PO Q4H PRN PRN Reason: Pain Last Admin: 03/04/17 00:04 Dose: 1 tab Pantoprazole Sodium (Protonix Tab (Nf)) 20 mg PO DAILY [facility] Last Admin: 03/06/17 08:58 Dose: Not Given Vital Signs 03/05/17 03/05/17 03/05/17 11:00 11:04 11:08 Temperature 98 F Pulse Rate Respiratory 16 18 20 Rate Blood Pressure 130/60 (mmHg) O2 Sat by Pulse Oximetry 03/05/17 03/05/17 03/05/17 11:19 11:25 11:30 Temperature Pulse Rate 74 76 71 Respiratory 17 20 14 Rate Blood Pressure 130/67 130/67 136/68 (mmHg) O2 Sat by Pulse 96 96 Oximetry 03/05/17 03/05/17 03/05/17 11:34 11:44 11:47 Temperature 98.8 F Pulse Rate 71 73 Respiratory 16 19 Rate Blood Pressure 136/68 130/61 (mmHg) O2 Sat by Pulse 96 Oximetry 03/05/17 03/05/17 03/05/17 11:49 12:00 12:15 Temperature Pulse Rate 73 70 68 Respiratory 16 16 17 Rate Blood Pressure 130/61 129/66 141/63 (mmHg) O2 Sat by Pulse 96 95 Oximetry 03/05/17 03/05/17 03/05/17 12:19 12:30 12:45 Temperature Pulse Rate 71 71 78 Respiratory 16 14 19 Rate Blood Pressure 143/66 143/66 146/79 (mmHg) O2 Sat by Pulse 95 96 Oximetry 03/05/17 03/05/17 03/05/17 12:49 13:00 13:15 Temperature Pulse Rate 78 73 76 Respiratory 16 14 19 Rate Blood Pressure 152/70 152/70 143/77 (mmHg) O2 Sat by Pulse 97 96 Oximetry 03/05/17 03/05/17 03/05/17 13:30 13:49 14:00 Temperature Pulse Rate 85 80 78 Respiratory 17 22 22 Rate Blood Pressure 158/126 148/67 148/67 (mmHg) O2 Sat by Pulse 97 94 94 Oximetry 03/05/17 03/05/17 03/05/17 14:49 15:00 15:04 Temperature 98.3 F Pulse Rate 73 83 Respiratory 18 16 Rate Blood Pressure 153/76 153/76 (mmHg) O2 Sat by Pulse 97 98 Oximetry 03/05/17 03/05/17 03/05/17 15:46 18:04 19:41 Temperature 98.3 F 97.7 F 98.3 F Pulse Rate 76 79 Respiratory 18 16 Rate Blood Pressure 152/72 144/61 (mmHg) O2 Sat by Pulse 98 97 Oximetry 03/05/17 03/05/17 03/06/17 20:00 23:25 04:37 Temperature 98.3 F 98.4 F Pulse Rate 72 80 Respiratory 16 16 16 Rate Blood Pressure 143/64 139/85 (mmHg) O2 Sat by Pulse 93 99 Oximetry 03/06/17 03/06/17 08:00 08:06 Temperature 97.7 F Pulse Rate 70 Respiratory 18 16 Rate Blood Pressure 144/68 (mmHg) O2 Sat by Pulse 96 Oximetry Oxygen Devices in Use Now: None Appearance: Alert, sitting up in bed. In good spirits. Looks comfortable. Eyes: No Scleral Icterus Ears/Nose/Mouth/Throat: Clear Oropharnyx, Mucous Membranes Moist Neck: NL Appearance and Movements; NL JVP, No Thyroid Enlargement, Masses Respiratory: Symmetrical Chest Expansion and Respiratory Effort, Clear to Auscultation, Clear to Percussion Extremities: No Edema, No Clubbing, Cyanosis, - Skin: No Rash or Ulcers, No Nodules or Sclerosis, - Neurological: Alert and Oriented x 3, NL Sensation Result Diagrams: 03/06/17 08:01 03/06/17 08:01 Microbiology and Other Data: Microbiology 03/03/17 09:33 Stool Occult Blood ([facility]ORIN) - Final Stool 03/02/17 13:45 Nasal Screen MRSA (PCR)([facility]) - Final Nasal Mrsa Negative Assess/Plan/Problems-Billing Assessment: 67 yo F h/o HTN, DM2, HLD p/w chest pain found with NSTEMI s/p [facility] without intervention 03/05 - Patient Problems (1) Non-STEMI (non-ST elevated myocardial infarction) Current Visit: Yes Status: Acute Code(s): I21.4 - NON-ST ELEVATION (NSTEMI) MYOCARDIAL INFARCTION SNOMED Code(s): 474301291 Comment: [facility] without intervention. Regional wall motion abnormalites. Discussed with Dr. Herrera. Likely had RCA plaque/thrombus that resolved on heparin prior to cath. Continue clopidogrel, ASA. c/w metoprolol, cardizem, high dose statin. Fup Cayetano Danielle. (2) HTN (hypertension) Current Visit: No Status: Acute Code(s): I10 - ESSENTIAL (PRIMARY) HYPERTENSION SNOMED Code(s): 51314088 Comment: Continue lisinopirl, metoprol XL, diltiazem CD. Fup Cayetano Danielle. (3) Diabetes Current Visit: Yes Status: Acute Code(s): E11.9 - TYPE 2 DIABETES MELLITUS WITHOUT COMPLICATIONS SNOMED Code(s): 63818266 Comment: Resume glipizide now. Resume metformin 03/08. Fup Dr. Kincaid. (4) Anemia Current Visit: Yes Status: Acute Code(s): D64.9 - ANEMIA, UNSPECIFIED SNOMED Code(s): 704547904 Comment: iron studies equivocal. Continue FeSO4 once daily, outpt fup needed. SPEP, UPEP pending Status and Disposition: Discharge now. Dr. Brown to check cath site first. Fup Cayetano Danielle.
--- NOTE | 2017-03-06 11:44 | PN ---
Progress Note - Progress Note Note: Time spent on discharge 50 minutes. I spoke with Dr. Brown as well about the patient.
--- NOTE | 2017-03-07 02:39 | DS ---
AMENDED REPORT NOW INCLUDES DATE OF DISCHARGE - ESIGNED BEFORE ADJUSTMENTS CC: Dr. Kincaid; Dr. Monteiro * DISCHARGE SUMMARY: DATE OF ADMISSION: 03/02/17 DATE OF DISCHARGE: 03/06/17 HISTORY OF PRESENT ILLNESS: This 67-year-old woman presented with chest discomfort and left shoulder pain that started the night before. She presented to the emergency room around 8:30 p.m. She has had no known cardiac problems before that, although she has been treated for hypertension, diabetes, and hyperlipidemia. The rest of the history is detailed in the admission note. Her troponin was mildly elevated on admission. She was admitted to the telemetry floor. Her troponin continued to rise and peaked at 7.89. She had cardiac catheterization. There were wall motion abnormalities seen both on the left ventriculogram as well as transthoracic echocardiogram compatible with inferoposterior myocardial infarction. She had mildly decreased left ventricular ejection fraction of 45% to 50%. Her blood pressure was elevated on admission. Metoprolol XL and diltiazem CD were added to lisinopril. She was started on clopidogrel, aspirin, and atorvastatin. Because of her anemia, she underwent endoscopy which showed minimal antral gastritis. Dr. Brown started the patient on pantoprazole 20 mg daily. FINAL DIAGNOSES: 1. Acute myocardial infarction. 2. Diabetes. 3. Hypertension. 4. Anemia. 5. Minimal gastritis. DISCHARGE MEDICATIONS: 1. Aspirin 81 mg daily. 2. Clopidogrel 75 mg daily. 3. Atorvastatin 80 mg daily at 5 p.m. 4. Diltiazem CD 120 mg daily. 5. Ferrous sulfate 325 mg daily. 6. Metoprolol succinate XL 50 mg b.i.d. 7. Pantoprazole 20 mg daily. 8. Duloxetine 30 mg daily. 9. Lisinopril 10 mg daily. 10. Meloxicam 15 mg daily. 11. Glipizide 10 mg 8 a.m. and 7 p.m. The patient had been on metformin 1000 mg b.i.d. She will resume this on . [id number]/[facility] #: [id number] MTDD
[2017-03-07] MEDS ORDERED: Ferrous Sulfate TAB* 325 MG PO SCH (09:00)
== END 2017-03-06 12:30 | disposition home health service (06) | DRG 281 ==
LOC: ED 05:52 → MEDTELE 07:18 → OBSVTOIN 11:09 → ICU 11:40 → MEDTELE 03-05 16:12
PROVIDERS: ADMIT Hospitalist; ATTEND Internal Medicine
PROC: 0DJ08ZZ Inspection of Upper Intestinal Tract, Via Natural or Artificial Opening Endoscopic (ICD-10-PCS; 2017-03-04)
PROC: B2151ZZ Fluoroscopy of Left Heart using Low Osmolar Contrast (ICD-10-PCS; 2017-03-05)
PROC: 4A023N7 Measurement of Cardiac Sampling and Pressure, Left Heart, Percutaneous Approach (ICD-10-PCS; 2017-03-05)
PROC: B2111ZZ Fluoroscopy of Multiple Coronary Arteries using Low Osmolar Contrast (ICD-10-PCS; principal; 2017-03-05 08:45)
DX: I21.4 Non-ST elevation (NSTEMI) myocardial infarction (principal); Z68.41 Body mass index [BMI] 40.0-44.9, adult; E11.9 Type 2 diabetes mellitus without complications; N18.3 Chronic kidney disease, stage 3 (moderate); I12.9 Hypertensive chronic kidney disease with stage 1 through stage 4 chronic kidney disease, or unspecified chronic kidney disease; D50.9 Iron deficiency anemia, unspecified; F32.9 Major depressive disorder, single episode, unspecified; E78.5 Hyperlipidemia, unspecified; K29.70 Gastritis, unspecified, without bleeding; Z96.612 Presence of left artificial shoulder joint; H91.90 Unspecified hearing loss, unspecified ear; Z96.21 Cochlear implant status; K64.8 Other hemorrhoids; I25.10 Atherosclerotic heart disease of native coronary artery without angina pectoris; K21.9 Gastro-esophageal reflux disease without esophagitis; K57.30 Diverticulosis of large intestine without perforation or abscess without bleeding; R19.5 Other fecal abnormalities; E66.3 Overweight; Z79.82 Long term (current) use of aspirin; Z79.02 Long term (current) use of antithrombotics/antiplatelets; Z79.84 Long term (current) use of oral hypoglycemic drugs; Z98.49 Cataract extraction status, unspecified eye; Z97.4 Presence of external hearing-aid; Z87.442 Personal history of urinary calculi; Z84.1 Family history of disorders of kidney and ureter; Z83.2 Family history of diseases of the blood and blood-forming organs and certain disorders involving the immune mechanism; Z82.49 Family history of ischemic heart disease and other diseases of the circulatory system; Z83.3 Family history of diabetes mellitus; Z87.820 Personal history of traumatic brain injury
CPT/HCPCS: 36415; 71020; 80048; 80053; 80061; 82272; 82728; 82947; 83020; 83540; 83550; 83721; 84155; 84156; 84165; 84166; 84484; 85025; 85379; 87641; 93005; 93306; 93458; A9270-GY; C8929; G0378; J0360; J1644; J1650; J2001; J2250; J2270; J3010

== ENCOUNTER 2018-02-19 10:45 | Observation (INO) | payer MEDICARE, MEDICAID ==
[2018-02-19] MEDS ORDERED: Meclizine TAB* 12.5 MG PO ONE (11:51)
[2018-02-19] MEDS ORDERED: Ondansetron ODT TAB* 4 MG SL ONE (11:51)
[2018-02-19] MEDS ORDERED: LORazepam TAB(*) 1 MG PO ONE (13:00)
[2018-02-19 13:21] LABS: ABS Basophils 0.1 10^3/ul (0-0.2); ABS Eosinophils 0.1 10^3/ul (0-0.6); ABS Lymphocytes 1.6 10^3/ul (1.0-4.8); ABS Monocytes 0.4 10^3/ul (0-0.8); ABS Neutrophils 3.8 10^3/ul (1.5-7.7); ABS Nucleated RBC 0 10^3/ul; Eosinophil % 2.4 % (0-6); Hematocrit 32 % (35-47); Hemoglobin 10.3 g/dl (12.0-16.0); Lymphocyte % 26.6 % (25-47); Mean Corpuscular HGB Conc 32 g/dl (31-36); Mean Corpuscular Hemoglobin 25 pg (27-31); Mean Corpuscular Volume 77 fL (80-97); Mean Platelet Volume 7.2 um3 (7.4-10.4); Nucleated Red Blood Cells % 0.1; Platelet Count 170 10^3/ul (150-450); Red Blood Count 4.15 10^6/ul (4.0-5.4); Red Cell Distribution Width 17 % (10.5-15); White Blood Count 5.9 10^3/ul (3.5-10.8)
[2018-02-19 13:38] LABS: EGFR Non-African American 58.5 (>60)
--- NOTE | 2018-02-19 14:44 | RAD ---
Indication: Dizziness. History of RIGHT-sided cochlear implant. Comparison: No relevant prior exams available on the [facility] PACS for comparison. Technique: Noncontrast CT vertex of skull through foramen magnum. Metallic artifact reduction algorithm utilized. Report: Artifact from the RIGHT cochlear implant degrades image quality. Unremarkable cerebral sulci, ventricles, and basal cisterns for age. Negative for carrasquillo matter white matter obscuration, intra or extra-axial hemorrhage, or mass effect. No suspicious calvarial or skull base lesion evident. Clear visualized paranasal sinuses and mastoid air spaces. Unremarkable scalp. IMPRESSION: Negative unenhanced head CT. .
--- NOTE | 2018-02-19 16:26 | ED ---
Dizziness - HPI Summary HPI Summary: Patient is a 68-year-old female with a history of BPPV vertigo, bilateral hearing loss with cochlear implant and diabetes presenting to the ED with a complaint of dizziness and vertigo symptoms which have been worsening. He states today upon awakening she was unable to ambulate well due to the dizziness. Associated nausea. Endorses a fullness to the right ear, but denies any left ear pain. She denies any visual changes. Symptoms are aggravated upon looking to the left and standing upright, symptoms improved with lying flat and lying still. She states she has been taking meclizine in the past for dizziness, but did not take this today. Associated nausea, no vomiting. Denies any at home medication for nausea. Ambulates with assistive device of a cane, daughter at bedside. - History Of Current Complaint Chief Complaint: EDDizziness Stated Complaint: VERTIGO Time Seen by Provider: 02/19/18 11:19 Hx Obtained From: Patient Onset/Duration: Suddenly Timing: Constant Severity Initially: Moderate Severity Currently: Moderate Character: Dizzy Aggravating Factor(s): Position Change Alleviating Factor(s): Rest, Closing Eyes Associated Signs And Symptoms: Positive: Nausea - Risk Factors Cardiac Risk Factors: Hypertension CVA Risk Factor: Hypertension, Diabetes - Allergies/Home Medications Allergies/Adverse Reactions: Allergies Allergy/AdvReac Type Severity Reaction Status Date / Time No Known Allergies Allergy Verified 03/02/17 07:03 Home Medications: Home Medications Aspirin EC TAB* [Ecotrin EC Low Dose 81 MG*] 81 mg PO QAM 02/19/18 [History Confirmed 02/19/18] Atorvastatin* [Lipitor 80 MG*] 80 mg PO QPM 02/19/18 [History Confirmed 02/19/18 ] Clopidogrel TAB* [Plavix TAB*] 75 mg PO QPM 02/19/18 [History Confirmed 02/19/18 ] Diltiazem CD CAP* [Cardizem CD CAP*] 120 mg PO QAM 02/19/18 [History Confirmed 02/19/18] Ferrous Sulfate TAB* 325 mg PO QPM 02/19/18 [History Confirmed 02/19/18] Liraglutide (NF) [Victoza (NF)] 1.8 mg SUBCUT QPM 02/19/18 [History Confirmed ] Lisinopril TAB* [Prinivil TAB 10 MG*] 10 mg PO QAM 02/19/18 [History Confirmed 02/19/18] Metoprolol Succinate XL TAB* [Toprol XL TAB*] 25 mg PO QAM 02/19/18 [History Confirmed 02/19/18] Metoprolol Succinate XL TAB* [Toprol XL TAB*] 50 mg PO QPM 02/19/18 [History Confirmed 02/19/18] metFORMIN* [Glucophage 1000 MG TAB *] 1,000 mg PO BID 02/19/18 [History Confirmed 02/19/18] PMH/Surg Hx/FS Hx/Imm Hx Previously Healthy: Yes Endocrine/Hematology History: Reports: Hx Diabetes - ON ORAL MED Denies: Hx Thyroid Disease Cardiovascular History: Reports: Hx Hypertension - ON MEDICATION, Other Cardiovascular Problems/Disorders - IDDM II Respiratory History: Denies: Hx Asthma, Hx Chronic Obstructive Pulmonary Disease (COPD) GI History: Denies: Hx Ulcer History: Reports: Hx Kidney Stones - LAST SURGERY 2012 Sensory History: Reports: Hx Cataracts, Hx Contacts or Glasses - GLASSES, Hx Hearing Aid - HEARING AID-L; COCHLEAR IMPLANT RIGHT Opthamlomology History: Reports: Hx Cataracts, Hx Contacts or Glasses - GLASSES Neurological History: Reports: 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 CATARACT SURGERY- 2001- [facility]. COCHLEAR IMPLANT- [place], [place] 2013. KIDNEY STONE SURGERY- [facility]. 1985. cochlear implant. TONSILLECTOMY A CHILD Hx Anesthesia Reactions: No - Immunization History Hx Pertussis Vaccination: No Immunizations Up to Date: Unable to Obtain/Confirm Infectious Disease History: No Infectious Disease History: Denies: Hx Hepatitis, Hx Human Immunodeficiency Virus (HIV), Traveled Outside the [place] in Last 30 Days - Family History Known Family History: Positive: Hypertension, Diabetes Negative: Cardiac Disease - Social History Occupation: Unemployed Lives: Alone Alcohol Use: None Hx Substance Use: No Substance Use Type: Reports: None Smoking Status (MU): Never Smoked Tobacco Review of Systems Constitutional: Negative Negative: Fever, Chills, Fatigue, Skin Diaphoresis Negative: Blurred Vision, Diplopia, Drainage Positive: Ear Ache - right sided ear fullness Negative: Palpitations, Chest Pain Negative: Shortness Of Breath, Cough Genitourinary: Negative Positive: no symptoms reported, see HPI Skin: Negative Neurological: Other - dizziness All Other Systems Reviewed And Are Negative: Yes Physical Exam Triage Information Reviewed: Yes Vital Signs On Initial Exam: Initial Vitals Temp Pulse Resp BP Pulse Ox 97.7 F 73 16 140/89 97 02/19/18 11:05 02/19/18 11:05 02/19/18 11:05 02/19/18 11:05 02/19/18 11:05 Vital Signs Reviewed: Yes Appearance: Positive: Well-Appearing, Well-Nourished Skin: Positive: Warm, Skin Color Reflects Adequate Perfusion Head/Face: Positive: Normal Head/Face Inspection Eyes: Positive: EOMI, HAILE, Other: - no nystagmus Neck: Positive: Supple, No Lymphadenopathy Respiratory/Lung Sounds: Positive: Clear to Auscultation, Breath Sounds Present Cardiovascular: Positive: RRR Musculoskeletal: Positive: Normal - at baseline for patient Neurological: Positive: Alert, Oriented to Person Place, Time, Unable to Assess Gait, Speech Normal, Other - vertigo sxs. Negative: Receptive Aphasia, Expressive Aphasia, Disoriented, Finger to Nose, Dysarthric Aphasia, Amy-Mascorro Timblin Test Psychiatric: Positive: Normal, Affect/Mood Appropriate Diagnostics - Vital Signs Vital Signs Temp Pulse Resp BP Pulse Ox 02/19/18 15:36 71 17 143/75 94 02/19/18 15:08 13 02/19/18 14:36 74 19 155/77 94 02/19/18 14:14 86 15 94 02/19/18 13:09 20 02/19/18 13:06 15 141/87 02/19/18 13:00 74 19 97 02/19/18 12:56 71 16 146/97 97 02/19/18 12:36 70 14 138/74 95 02/19/18 12:06 77 16 123/67 99 02/19/18 12:03 83 16 120/97 97 02/19/18 12:00 73 16 98 02/19/18 11:52 73 14 135/80 97 02/19/18 11:36 74 17 135/80 97 02/19/18 11:06 76 15 140/89 96 02/19/18 11:05 97.7 F 72 10 140/89 98 - Laboratory Lab Results: Lab Results 02/19/18 02/19/18 02/19/18 Range/Units 13:10 13:10 13:11 WBC 5.9 (3.5-10.8) 10^3/ul RBC 4.15 (4.0-5.4) 10^6/ul Hgb 10.3 L (12.0-16.0) g/dl Hct 32 L (35-47) % MCV 77 L (80-97) fL MCH 25 L (27-31) pg MCHC 32 (31-36) g/dl RDW 17 H (10.5-15) % Plt Count 170 (150-450) 10^3/ul MPV 7.2 L (7.4-10.4) um3 Neut % (Auto) 63.7 (38-83) % Lymph % (Auto) 26.6 (25-47) % Smyth % (Auto) 6.4 (0-7) % Eos % (Auto) 2.4 (0-6) % Baso % (Auto) 0.9 (0-2) % Absolute Neuts (auto) 3.8 (1.5-7.7) 10^3/ul Absolute Lymphs (auto) 1.6 (1.0-4.8) 10^3/ul Absolute Monos (auto) 0.4 (0-0.8) 10^3/ul Absolute Eos (auto) 0.1 (0-0.6) 10^3/ul Absolute Basos (auto) 0.1 (0-0.2) 10^3/ul Absolute Nucleated RBC 0 10^3/ul Nucleated RBC % 0.1 Sodium 140 (139-145) mmol/L Potassium 4.4 (3.5-5.0) mmol/L Chloride 107 (101-111) mmol/L Carbon Dioxide 23 (22-32) mmol/L Anion Gap 10 (2-11) mmol/L BUN 20 (6-24) mg/dL Creatinine 0.95 (0.51-0.95) mg/dL Est GFR ( Amer) 75.2 (>60) Est GFR (Non-Af Amer) 58.5 (>60) BUN/Creatinine Ratio 21.1 H (8-20) Glucose 127 H (70-100) mg/dL Lactic Acid 1.7 (0.5-2.0) mmol/L Calcium 8.8 (8.6-10.3) mg/dL Magnesium 1.4 L (1.9-2.7) mg/dL Total Bilirubin 0.50 (0.2-1.0) mg/dL AST 11 L (13-39) U/L ALT 12 (7-52) U/L Alkaline Phosphatase 49 (34-104) U/L Total Protein 6.3 L (6.4-8.9) g/dL Albumin 3.6 (3.2-5.2) g/dL Globulin 2.7 (2-4) g/dL Albumin/Globulin Ratio 1.3 (1-3) Result Diagrams: 02/19/18 13:10 02/19/18 13:11 Lab Statement: Any lab studies that have been ordered have been reviewed, and results considered in the medical decision making process. Dizzy Course/Dx - Course Course Of Treatment: During the course of treatment, the patient is evaluated for BPPV vertigo vs labyrinthitis vs other pathology for dizziness. Appears to be peripheral vestibular as this is severe vertigo associated with nausea and gait instability. Patient was unable to maintain visual fixation with rapid turning of the head toward left side. This is positive head thrust test. Gait instability as patient is swaying on attempting to ambulate. However, no nystagmus is noted on physical examination, either horizontal or vertical. Difficult to discern labrynthitis versus BPPV as patient already has a diagnosis bilateral hearing loss. She is given meclizine and Zofran on arrival which did not improve her symptoms. CT brain obtained as well as labs. Labs are unremarkable. CT shows no intracranial pathology. Ativan 1 mg given without improvement. Again we tried to ambulate the patient and she was unable to stand due to the severe dizziness. Discussed with Dr. Cardona who agrees to admit to hospitalist services. - Diagnoses Differential Diagnosis/HQI/PQRI: CVA, Labyrinthitis, Meniere's Disease, Transient Ischemic Attack Provider Diagnoses: Vertigo Discharge - Sign-Out/Discharge Documenting (check all that apply): Discharge/Admit/Transfer - Discharge Plan Condition: Stable Disposition: ADMITTED TO [facility] Referrals: Anjum Kincaid MD [Primary Care Provider] - - Billing Disposition and Condition Condition: STABLE Disposition: [facility]
[2018-02-19] MEDS ORDERED: Ondansetron 40 MG VIAL* 2 MG/ML 20 ML VIAL IV PRN (16:33)
[2018-02-19] MEDS ORDERED: Acetaminophen TAB* 325 MG PO PRN (16:33)
[2018-02-19] MEDS ORDERED: Magnesium Sulfate 2 GM IV* 2 GM/50 ML BAG IVPB ONE (16:36)
[2018-02-19] MEDS ORDERED: Dextrose 50% Syringe 50 ML* 25 GM/50 ML SYRINGE IV PUSH PRN (16:38)
[2018-02-19] MEDS ORDERED: Aspirin EC TAB* 325 MG PO ONE (16:45)
[2018-02-19] MEDS: Metoprolol Succinate XL TAB* 50 MG PO SCH (18:55)
[2018-02-19] MEDS: Atorvastatin* 80 MG TAB PO SCH (18:55)
[2018-02-19] MEDS: Clopidogrel TAB* 75 MG PO SCH (18:56)
[2018-02-19] MEDS: Ferrous Sulfate TAB* 325 MG PO SCH (18:56)
--- NOTE | 2018-02-19 20:35 | RAD ---
INDICATION: Dizziness. COMPARISON: No relevant prior exams available on the [facility] PACS for comparison. TECHNIQUE: Bilateral carotid duplex scan. Stenosis estimations reflect velocity criteria that have been correlated to angiographic stenosis calculations based on distal internal carotid diameter. REPORT: RIGHT ICA: 65 cm/s peak systolic 18 cm/s end diastolic CCA: 73 cm/s peak systolic ICA/CCA peak systolic ratio: 0.89 Tortuous RIGHT common carotid artery. The right common carotid artery and internal carotid artery are without evidence for appreciable atherosclerotic plaque. Normal spectral wave forms are present throughout. Antegrade flow in the right vertebral artery. LEFT ICA: 58 cm/s peak systolic 18 cm/s end diastolic CCA: 66 cm/s peak systolic ICA/CCA peak systolic ratio: 0.87 Tortuous LEFT common carotid artery. Minimal noncalcified plaque at the LEFT carotid bulb and proximal internal carotid artery without significant resulting stenosis. Normal spectral wave forms are present throughout. Antegrade flow in the left vertebral artery. IMPRESSION: 1. No evidence for carotid stenosis. 2. Antegrade flow documented at the bilateral vertebral arteries. CPT II Codes: 3100F
[2018-02-19] MEDS: Heparin VIAL(*) 5000 UNITS/ML VIAL (FIVE THOUSAND) SUBCUT SCH (21:04)
[2018-02-19] MEDS: Meclizine TAB* 12.5 MG PO SCH (21:05)
--- NOTE | 2018-02-19 22:13 | HP ---
CC: Dr. Kincaid * HISTORY AND PHYSICAL: DATE OF ADMISSION: 02/19/18 PROVIDER: Ama Sol NP PRIMARY CARE PROVIDER: Dr. Kincaid. ATTENDING PHYSICIAN WHILE IN THE HOSPITAL: Gregoria Cardona MD * (dictated by Ama Sol NP) CHIEF COMPLAINT: Dizziness. HISTORY OF PRESENT ILLNESS: Ms. Rees is a 68-year-old female who carries a past medical history significant for hypertension, diabetes, depression, hyperlipidemia, AR, cochlear implant, and kidney stones who presented to the emergency room with a 2-day history of dizziness that got progressively worse today. The patient states that when she stands, the room is spinning. She was so dizzy that she did vomit x1 today. She denies any recent illnesses or sick contacts. She does report rhinorrhea. She denies any cough or congestion. She does state that her right ear does feel full. She again does have a cochlear implant on the right and a hearing aid on the left. She has had vertigo in the past, which she has been treated with meclizine for. While in the emergency room, she was seen and evaluated. She was given Ativan, meclizine. She had routine lab work drawn. After being medicated, they attempted to ambulate her to the bathroom, but the patient was unable to ambulate due to the dizziness and was very unsteady, so we were asked to see and evaluate her for dizziness. PAST MEDICAL HISTORY: 1. Hypertension. 2. Diabetes. 3. Depression. 4. Hyperlipidemia. 5. Septic shoulder joint. 6. AR. 7. Cochlear implant on the right. 8. Kidney stones. PAST SURGICAL HISTORY: 1. Kidney stents. 2. Tonsillectomy. 3. C-sections. 4. Cochlear implant on the right. HOME MEDICATIONS: 1. Metformin 1000 mg p.o. b.i.d. 2. Glipizide 10 mg p.o. b.i.d. 3. Metoprolol 25 mg q.a.m. 4. Metoprolol XL 50 mg p.o. q.p.m. 5. Lisinopril 10 mg q.a.m. 6. Victoza 1.8 mg subcu p.m. 7. Ferrous sulfate 325 mg p.o. q.p.m. 8. Diltiazem CD 120 mg p.o. q.a.m. 9. Duloxetine 30 mg p.o. q.a.m. 10. Clopidogrel 75 mg p.o. q.p.m. 11. Atorvastatin 80 mg p.o. q.p.m. 12. Aspirin 81 mg p.o. q.a.m. ALLERGIES: No known drug allergies. FAMILY HISTORY: No reported history of coronary artery disease. Mother had a history of diabetes and mother also had a history of breast cancer. SOCIAL HISTORY: Denies any tobacco use. Denies any alcohol use. Denies any illicit drug use. She is retired. She currently lives alone. She is and lives at [facility]. Surrogate decision maker is her daughter, Rancho Rees. Her phone number is [phone]. She is a full code. REVIEW OF SYSTEMS: There is no documented fever. There has been no significant weight change. There was no double vision. She denies any ear discharge. She does report fullness in the right ear and she also reports some rhinorrhea. She denies any sore throat. There was no chest pain. There has been no shortness of breath, nocturnal dyspnea, orthopnea. There was no abdominal pain. No nausea, vomiting, or diarrhea. No dysuria or urinary frequency. There were no seizures. No loss of consciousness. No pruritus. No skin ulcerations. A review of 14 systems was completed and all others are negative. PHYSICAL EXAMINATION GENERAL: At this time, Ms. Rees is a 68-year-old female, who is sleeping on the stretcher, awakened to tactile stimulation. She is alert and oriented x3. She does not appear to be in any acute distress. VITAL SIGNS: Blood pressure was 140/78, heart rate is 72, respirations 18, O2 saturation was 96%, temperature 97.7. HEENT: Head is atraumatic, normocephalic. Eyes: EOMs are intact. Sclerae anicteric and not pale. There is no oropharyngeal erythema. NECK: Supple. LUNGS: Clear to auscultation bilaterally. No wheezes, rales, or rhonchi. CARDIAC: S1, S2. Regular rate and rhythm. There are no murmurs, rubs, or gallops. ABDOMEN: Soft, obese, nontender. Bowel sounds are present x4. EXTREMITIES: Pulses are +2 throughout. She is able to move all 4 extremities with 5/5 strength. NEUROLOGIC: She is alert and oriented x4. Cranial nerves II through XII are intact. [id number] is intact. There is no ataxia. There is no arm drift. Tongue is midline. Speech is clear. There are no gross neuro focal deficits. SKIN: Intact. DIAGNOSTIC STUDIES AND LABORATORY DATA: WBCs are 5.9, RBCs 4.15, hemoglobin 7.3, hematocrit was 32, platelet count was 170. Sodium 140, potassium 4.4, chloride 107, carbon dioxide was 23, anion gap was 10, BUN was 20, creatinine 0.95. Lactic acid was 1.7. Magnesium was 1.4. ASTs were 11. CT of the brain was completed, radiologist's impression: Negative unenhanced CT of the head. There was some artifact in the CT due to the right cochlear implant. ASSESSMENT AND PLAN: Ms. Rees is a 68-year-old female who presented to the emergency room with a 2-day history of dizziness, progressively worse today. We were asked to see and evaluate her due to her dizziness and inability to ambulate. She will be admitted under observation for: 1. Dizziness. I suspect this is related to benign positional vertigo, but we will continue her on meclizine. Within the differential diagnosis, there is concern for posterior infarct. I will get a carotid ultrasound of the neck. to evaluate for stenosis as the patient does have a cochlear implant which would limit the ability to fully evaluate the brain with a CTA. I will give her loading dose of aspirin 325 mg p.o. daily and then aspirin 81 mg. We will continue her Plavix. The patient does have serum impaction to the left ear, I will get left ear irrigated as well. 2. Hypertension. We will continue her on her metoprolol and lisinopril. 3. Hyperlipidemia. She will continue atorvastatin 80 mg p.o. daily. 4. Diabetes. I will put her on a lispro sliding scale and fingersticks a.c. 5. Depression. She will continue on her Cymbalta. 6. FEN. She will be placed on a heart healthy, decaf okay diet. 7. DVT prophylaxis. I will place her on heparin subcu. 8. Code status. She is a full code. TIME SPENT: Time spent on this admission was approximately 60 minutes, greater than half the time was spent [id number] with the patient and her daughter obtaining my history and physical, the other half of the time was spent going over the plan of care and implementing my plan of care. I discussed this with my attending, Dr. Gregoria Cardona, she is in agreement with my plan. AMA SOL, PORTRAIT CONSULTANT [id number]/[facility] #: [id number] MARGARET
[2018-02-20] MEDS: Heparin VIAL(*) 5000 UNITS/ML VIAL (FIVE THOUSAND) SUBCUT SCH ×3 (05:18→21:45)
[2018-02-20] MEDS: Meclizine TAB* 12.5 MG PO SCH ×3 (05:19→21:45)
[2018-02-20 05:59] LABS: ABS Basophils 0 10^3/ul (0-0.2); ABS Eosinophils 0.2 10^3/ul (0-0.6); ABS Lymphocytes 2.1 10^3/ul (1.0-4.8); ABS Monocytes 0.3 10^3/ul (0-0.8); ABS Neutrophils 2.6 10^3/ul (1.5-7.7); ABS Nucleated RBC 0 10^3/ul; Eosinophil % 3.2 % (0-6); Hematocrit 30 % (35-47); Hemoglobin 9.8 g/dl (12.0-16.0); Lymphocyte % 40.1 % (25-47); Mean Corpuscular HGB Conc 32 g/dl (31-36); Mean Corpuscular Hemoglobin 25 pg (27-31); Mean Corpuscular Volume 77 fL (80-97); Mean Platelet Volume 7.3 um3 (7.4-10.4); Nucleated Red Blood Cells % 0.1; Platelet Count 159 10^3/ul (150-450); Red Blood Count 3.95 10^6/ul (4.0-5.4); Red Cell Distribution Width 16 % (10.5-15); White Blood Count 5.3 10^3/ul (3.5-10.8)
[2018-02-20 06:21] LABS: EGFR Non-African American 57.1 (>60)
[2018-02-20] MEDS: Insulin LISPRO* 1 UNITS UNIT SUBCUT SCH ×3 (07:55→17:15)
[2018-02-20] MEDS: DULoxetine DR CAP* 30 MG CAP.DR PO SCH (08:20)
[2018-02-20] MEDS: Metoprolol Succinate XL TAB* 25 MG PO SCH (08:21)
[2018-02-20] MEDS: Lisinopril TAB* 10 MG PO SCH (08:21)
[2018-02-20] MEDS: Aspirin EC TAB* 81 MG TAB.EC PO SCH (08:21)
[2018-02-20] MEDS: Diltiazem CD CAP* 120 MG PO SCH (08:21)
--- NOTE | 2018-02-20 12:47 | PN ---
Subjective Date of Service: 02/20/18 Interval History: PAtient seen and examined. States she is still dizzy with ambulation and having nausea. Also states dizziness persists when she rolls over in bed. Denies SOB, no chest pain, no headache, no fevers or chills, no further complaints. Objective Active Medications: Acetaminophen (Tylenol Tab*) 650 mg PO Q4H PRN PRN Reason: FEVER/PAIN Aspirin (Aspirin Ec Tab*) 81 mg PO [facility] Last Admin: 02/20/18 08:21 Dose: 81 mg Atorvastatin Calcium (Lipitor*) 80 mg PO QPM [facility] Last Admin: 02/19/18 18:55 Dose: 80 mg Clopidogrel Bisulfate (Plavix Tab*) 75 mg PO QPM [facility] Last Admin: 02/19/18 18:56 Dose: 75 mg Dextrose (D50w Syringe 50 Ml*) 12.5 gm IV PUSH .FOR FS < 60 - SS PRN PRN Reason: FS < 60 Diltiazem HCl (Cardizem Cd Cap*) 120 mg PO [facility] Last Admin: 02/20/18 08:21 Dose: 120 mg Duloxetine HCl (Cymbalta Cap*) 30 mg PO [facility] Last Admin: 02/20/18 08:20 Dose: 30 mg Ferrous Sulfate (Ferrous Sulfate Tab*) 325 mg PO QPM [facility] Last Admin: 02/19/18 18:56 Dose: 325 mg Heparin Sodium (Porcine) (Heparin Vial(*)) 5,000 units SUBCUT Q8HR [facility] Last Admin: 02/20/18 05:18 Dose: 5,000 units Insulin Human Lispro (Humalog*) 0 units SUBCUT AC [facility] PRN Reason: Protocol Last Admin: 02/20/18 11:57 Dose: 3 units Lisinopril (Prinivil Tab*) 10 mg PO [facility] Last Admin: 02/20/18 08:21 Dose: 10 mg Meclizine HCl (Antivert Tab*) 25 mg PO Q8HR [facility] Last Admin: 02/20/18 05:19 Dose: 25 mg Metoprolol Succinate (Toprol Xl Tab*) 25 mg PO [facility] Last Admin: 02/20/18 08:21 Dose: 25 mg Metoprolol Succinate (Toprol Xl Tab*) 50 mg PO QPM [facility] Last Admin: 06/03/18 18:55 Dose: 50 mg Ondansetron HCl (Zofran 40 Mg Vial*) 4 mg IV Q4H PRN PRN Reason: NAUSEA/VOMITING Vital Signs - 8 hr 02/20/18 02/20/18 02/20/18 07:19 07:23 11:17 Temperature 98.0 F 98.0 F Pulse Rate 78 76 Respiratory 18 18 18 Rate Blood Pressure 142/74 131/72 (mmHg) O2 Sat by Pulse 97 94 Oximetry Oxygen Devices in Use Now: None Appearance: Alert, well appearing, NAD Eyes: No Scleral Icterus, PERRLA Ears/Nose/Mouth/Throat: NL Teeth, Lips, Gums, Mucous Membranes Moist Neck: NL Appearance and Movements; NL JVP, Trachea Midline Respiratory: Symmetrical Chest Expansion and Respiratory Effort, Clear to Auscultation Cardiovascular: NL Sounds; No Murmurs; No JVD, RRR, No Edema Abdominal: NL Sounds; No Tenderness; No Distention Lymphatic: No Cervical Adenopathy Extremities: No Edema Skin: No Rash or Ulcers Neurological: Alert and Oriented x 3, NL Sensation, NL Muscle Strength and Tone Nutrition: Taking PO's Result Diagrams: 02/20/18 05:18 02/20/18 05:18 Additional Lab and Data: Lab Results 02/19/18 02/19/18 02/19/18 Range/Units 13:10 13:10 13:11 WBC 5.9 (3.5-10.8) 10^3/ul RBC 4.15 (4.0-5.4) 10^6/ul Hgb 10.3 L (12.0-16.0) g/dl Hct 32 L (35-47) % MCV 77 L (80-97) fL MCH 25 L (27-31) pg MCHC 32 (31-36) g/dl RDW 17 H (10.5-15) % Plt Count 170 (150-450) 10^3/ul MPV 7.2 L (7.4-10.4) um3 Neut % (Auto) 63.7 (38-83) % Lymph % (Auto) 26.6 (25-47) % [place] % (Auto) 6.4 (0-7) % Eos % (Auto) 2.4 (0-6) % Baso % (Auto) 0.9 (0-2) % Absolute Neuts (auto) 3.8 (1.5-7.7) 10^3/ul Absolute Lymphs (auto) 1.6 (1.0-4.8) 10^3/ul Absolute Monos (auto) 0.4 (0-0.8) 10^3/ul Absolute Eos (auto) 0.1 (0-0.6) 10^3/ul Absolute Basos (auto) 0.1 (0-0.2) 10^3/ul Absolute Nucleated RBC 0 10^3/ul Nucleated RBC % 0.1 Sodium 140 (139-145) mmol/L Potassium 4.4 (3.5-5.0) mmol/L Chloride 107 (101-111) mmol/L Carbon Dioxide 23 (22-32) mmol/L Anion Gap 10 (2-11) mmol/L BUN 20 (6-24) mg/dL Creatinine 0.95 (0.51-0.95) mg/dL Est GFR ( Amer) 75.2 (>60) Est GFR (Non-Af Amer) 58.5 (>60) BUN/Creatinine Ratio 21.1 H (8-20) Glucose 127 H (70-100) mg/dL Lactic Acid 1.7 (0.5-2.0) mmol/L Calcium 8.8 (8.6-10.3) mg/dL Magnesium 1.4 L (1.9-2.7) mg/dL Total Bilirubin 0.50 (0.2-1.0) mg/dL AST 11 L (13-39) U/L ALT 12 (7-52) U/L Alkaline Phosphatase 49 (34-104) U/L Total Protein 6.3 L (6.4-8.9) g/dL Albumin 3.6 (3.2-5.2) g/dL Globulin 2.7 (2-4) g/dL Albumin/Globulin Ratio 1.3 (1-3) Diagnostic Imaging: Patient Name: GLADYS COLLIER Medical Record#: [id number] Ordering Physician: Jessica RUBIO Acct.#: [id number] : 1950 Age: 68 Sex: F Location: EMERGENCY DEPARTMENT Exam Date: 02/19/18 1259 ADM Status: REG ER Order Information: CT BRAIN WO Accession Number: [id number] CPT: 35171 Indication: Dizziness. History of RIGHT-sided cochlear implant. Comparison: No relevant prior exams available on the [facility] PACS for comparison. Technique: Noncontrast CT vertex of skull through foramen magnum. Metallic artifact reduction algorithm utilized. Report: Artifact from the RIGHT cochlear implant degrades image quality. Unremarkable cerebral sulci, ventricles, and basal cisterns for age. Negative for carrasquillo matter white matter obscuration, intra or extra-axial hemorrhage, or mass effect. No suspicious calvarial or skull base lesion evident. Clear visualized paranasal sinuses and mastoid air spaces. Unremarkable scalp. IMPRESSION: Negative unenhanced head CT. . <Electronically signed by Derrick Quesada MD in OV> 02/19/18 1440 Dictated By: Derrick Quesada MD Dictated Date/Time: 02/19/18 1440 Transcribed Date/Time: 02/19/18 1437 Copy to: Patient Name: GLADYS COLLIER Medical Record#: [id number] Ordering Physician: Ama Sol NP Acct.#: [id number] : 1950 Age: 68 Sex: F Location: [address] [place] [address]/[employer] Exam Date: 02/19/18 1642 ADM Status: ADM Seth Order Information: VL CAROTID BILATERAL Accession Number: [id number] CPT: 46387 INDICATION: Dizziness. COMPARISON: No relevant prior exams available on the [facility] PACS for comparison. TECHNIQUE: Bilateral carotid duplex scan. Stenosis estimations reflect velocity criteria that have been correlated to angiographic stenosis calculations based on distal internal carotid diameter. REPORT: RIGHT ICA: 65 cm/s peak systolic 18 cm/s end diastolic CCA: 73 cm/s peak systolic ICA/CCA peak systolic ratio: 0.89 Tortuous RIGHT common carotid artery. The right common carotid artery and internal carotid artery are without evidence for appreciable atherosclerotic plaque. Normal spectral wave forms are present throughout. Antegrade flow in the right vertebral artery. LEFT ICA: 58 cm/s peak systolic 18 cm/s end diastolic CCA: 66 cm/s peak systolic ICA/CCA peak systolic ratio: 0.87 Tortuous LEFT common carotid artery. Minimal noncalcified plaque at the LEFT carotid bulb and proximal internal carotid artery without significant resulting stenosis. Normal spectral wave forms are present throughout. Antegrade flow in the left vertebral artery. IMPRESSION: 1. No evidence for carotid stenosis. 2. Antegrade flow documented at the bilateral vertebral arteries. CPT II Codes: 3100F <Electronically signed by Derrick Quesada MD in OV> 02/19/182031 Dictated By: Derrick Quesada MD Dictated Date/Time: 02/19/182031 Transcribed Date/Time: 02/19/182027 Copy to: CC:Anjum Kincaid MD; Gregoria Cardona DO; Ama Sol NP Imaging - [facility] Imaging - [facility] [address] [place] [address] ph [phone] ph [phone]) ph ([phone]) 1 of 2 Assess/Plan/Problems-Billing Assessment: This is a 68 year old female patient with hx of hearing loss, s/p cochlear implant, that presents with refractory dizziness that is severe, causing gait disturbance and nausea. - Patient Problems (1) Dizziness Status: Acute Code(s): R42 - DIZZINESS AND GIDDINESS SNOMED Code(s): 067256921 Comment: - eddley 2/2 BPPV, however, given history of cochlear implant, ear infections and cerumen impaction, cannot rule out that there is a central etiology - Patient's implant placed at [facility], does not have a local ENT - Will consult Dr. Medellin/ENT, concerned about attempting eppley maneuver while acute - CT head negative, does have some antegrade flow in the vertebral arteries per US above - Continue meclizine, will trial valium (2) Diabetes Code(s): E11.9 - TYPE 2 DIABETES MELLITUS WITHOUT COMPLICATIONS SNOMED Code(s) : 12050887 Comment: - Lispro SS - Restart home meds at [place] (3) HTN (hypertension) Code(s): I10 - ESSENTIAL (PRIMARY) HYPERTENSION SNOMED Code(s): 52653704 Comment: - Continue lisinopril, metoprol XL, diltiazem CD (4) Cochlear implant status Code(s): Z96.21 - COCHLEAR IMPLANT STATUS SNOMED Code(s): 396770833 Comment: - Implant at home - Follows with surgeon at [facility] (5) Hearing difficulty Code(s): H91.90 - UNSPECIFIED HEARING LOSS, UNSPECIFIED EAR SNOMED Code(s): 753749341 Comment: - With cochlear impant and cerumen impaction (6) CAD (coronary artery disease) Code(s): I25.10 - ATHSCL HEART DISEASE OF [place] CORONARY ARTERY W/O ANG PCTRS SNOMED Code(s): 22964978 Comment: - Continue ASA, BB and plavix (7) DVT prophylaxis Code(s): EMX8610 - SNOMED Code(s): 727162801 Comment: - HSQ (8) Full code status Code(s): Z78.9 - OTHER SPECIFIED HEALTH STATUS SNOMED Code(s): 859519613 Status and Disposition: Remain inpatient
[2018-02-20] MEDS ORDERED: Diazepam INJ (NF) 5 MG/ML 10 ML VIAL (50 MG TOTAL) IV PRN (15:51)
[2018-02-20] MEDS ORDERED: Diazepam INJ (NF) 5 MG/ML 10 ML VIAL (50 MG TOTAL) ONE (16:51)
[2018-02-20] MEDS ORDERED: Magnesium Sulfate 1 GM IV* 1 GM/100 ML BAG IV ONE (17:00)
[2018-02-20] MEDS: Ferrous Sulfate TAB* 325 MG PO SCH (17:16)
[2018-02-20] MEDS: Clopidogrel TAB* 75 MG PO SCH (17:16)
[2018-02-20] MEDS: Metoprolol Succinate XL TAB* 50 MG PO SCH (17:16)
[2018-02-20] MEDS: Atorvastatin* 80 MG TAB PO SCH (17:16)
[2018-02-21] MEDS: Meclizine TAB* 12.5 MG PO SCH ×2 (06:10→13:43)
[2018-02-21] MEDS: Heparin VIAL(*) 5000 UNITS/ML VIAL (FIVE THOUSAND) SUBCUT SCH ×2 (06:11→13:43)
[2018-02-21] MEDS: Diltiazem CD CAP* 120 MG PO SCH (08:20)
[2018-02-21] MEDS: DULoxetine DR CAP* 30 MG CAP.DR PO SCH (08:20)
[2018-02-21] MEDS: Aspirin EC TAB* 81 MG TAB.EC PO SCH (08:20)
[2018-02-21] MEDS: Metoprolol Succinate XL TAB* 25 MG PO SCH (08:20)
[2018-02-21] MEDS: Insulin LISPRO* 1 UNITS UNIT SUBCUT SCH ×2 (08:20→12:15)
[2018-02-21] MEDS: Lisinopril TAB* 10 MG PO SCH (08:20)
[2018-02-21 15:22] VITALS: BP 142/73
--- NOTE | 2018-02-22 09:33 | DS ---
AMENDED REPORT NOW INCLUDES COSIGNER DESIGNATION - ESIGNED BEFORE ADJUSTMENTS CC: Dr. Kincaid * DISCHARGE SUMMARY: DATE OF ADMISSION: 02/19/18 DATE OF DISCHARGE: 02/21/18 PRIMARY CARE PHYSICIAN: Dr. Anjum Kincaid. ATTENDING PHYSICIAN: Dr. Gregoria Cardona. MY ATTENDING FOR TODAY: Dr. Mitchel Santos.* (DICTATED BY GALO POWERS NP) HOSPITAL COURSE: This is a very pleasant 68-year-old female patient, who came to the emergency department for complaint of a 2-day history of dizziness and nausea that got progressively worse rendering the patient unable to ambulate without feeling like she would fall over. The patient states that when she stands, the room spins and also when she turns too quickly in bed, she continues to spin. The patient did state that she had had this in the past. Of significant note, the patient does having hearing loss and is status post cochlear implant on the right. She carries a medical history of diabetes, type 2 ; hypertension; depression; hyperlipidemia; HI in the past; deafness, with cochlear implant. The patient was treated in the emergency department, given Ativan and meclizine; however, she did not respond and was very, again, unsteady on her feet. As such, she was admitted for further treatment and evaluation. The patient received meclizine regularly scheduled. We also added some Valium yesterday to which she responded well. I had a discussion with Dr. Medellin from ENT of which she was a prior patient. Dr. Medellin confirmed that the patient's vertigo was not in fact BPPV, but likely related to her cochlear implant and somewhat of an inflammatory process in the inner ear causing her symptoms. At this point, he had suggested continued supportive care , symptom management with Antivert and sedatives, again to which she responded favorably. When she was seen this morning, she was lying in bed, she was able to ambulate with no assistance, and stated she felt a bit lightheaded, but no overt dizziness anymore. No headache, no visual disturbances, no nausea, no vomiting, no chest pain, no shortness of breath. No arthralgias or myalgias and no further constitutional complaints. PHYSICAL EXAMINATION: The patient is alert, no acute distress. Vital Signs: Currently, blood pressure 142/73, heart rate 69, respiratory rate 16, satting at 98% on room air with a temperature of 98.8. HEENT: The patient is a atraumatic, normocephalic with the exception of the insertion site of her cochlear implant on the right. Oral mucosa is moist. Tongue is midline. Neck is supple, nontender. No JVD noted. No carotid bruits auscultated. Cardiovascular: S1, S2 present. No murmurs, gallops, or rubs. Lungs are clear bilaterally to auscultation with no wheezing, rhonchi, or rales. Abdomen : Soft, nontender, nondistended. Positive bowel sounds in all 4 quadrants. No organomegaly noted. Abdomen is obese. Musculoskeletal: There is no clubbing , no cyanosis, and no edema. She has +2 distal pulses palpable. Gross motor and sensation are intact. Neurologic: Grossly intact to no focal deficits. Psychiatric: She is cooperative and appropriate. LABORATORY DATA: WBC is 5.3, RBC is 3.95, hemoglobin , hematocrit 30, platelets 159. Sodium 144, potassium 4.2, chloride 112, CO2 of 25, BUN 16, creatinine 0.97, GFR 57.1, glucose ranging 113 to 200, calcium 8.9. Liver function within normal limits. Magnesium was 1.8 up from 1.4. DISCHARGE DIAGNOSES: 1. Vertigo, likely secondary to cochlear implant. 2. Hypertension, stable. 3. Diabetes, stable. 4. History of depression, stable. 5. Hyperlipidemia, stable. 6. History of myocardial infarction and coronary artery disease, stable. 7. Remote history of septic shoulder joint. MEDICATIONS: At the time of discharge include: 1. Metformin 1000 mg 2 times a day. 2. Glipizide 10 mg 2 times a day. 3. Metoprolol 25 mg daily. 4. Metoprolol XL 50 mg in the evening. 5. Lisinopril 10 mg in the morning. 6. Victoza 1.8 mg subcu in the evening. 7. Ferrous sulfate 325 mg in the evening. 8. Diltiazem 120 mg daily. 9. Duloxetine 30 mg in the morning. 10. Plavix 75 mg daily. 11. Atorvastatin 80 mg daily. 12. Aspirin 81 mg daily. 13. Slow-Mag 1 tablet daily. New medications for discharge: 1. Meclizine 25 mg p.o. q.8 hours x5 days. 2. Valium 2 mg q.6 hours as needed. 3. Zofran 4 mg q.6 hours as needed. DISCHARGE DISPOSITION: The patient stated she is very interested in going home. Her daughter is currently at the bedside, who is in part her caregiver. She does live by herself at [facility], but she has assistance on a daily basis. Also, of note, the patient had CAT scan of the head and carotid ultrasound, which showed no acute findings. Based on her lack of pathology on her imaging and her history of cochlear implant, we felt she was stable to go home with outpatient followup. The patient was instructed to follow up with Dr. Anjum Kincaid and also Dr. Medellin. The patient was discharged in stable condition. All questions were answered. The patient and her daughter stated that they are in understanding of the followups and medications at the time of discharge. GALO POWERS NP [id number]/[facility] #: [id number] MARGARET
== END 2018-02-21 17:05 | disposition home or self-care (01) ==
LOC: ED 10:45 → MEDTELE 16:33
PROVIDERS: ADMIT Pediatrics; ATTEND Internal Medicine
DX: R42 Dizziness and giddiness (principal); R11.0 Nausea; I10 Essential (primary) hypertension; H92.01 Otalgia, right ear
CPT/HCPCS: 36415; 70450; 80048; 80053; 83605; 83735; 85025; 93880; 99284; A9270-GY; G0378; J1644; J3360; J3475

== ENCOUNTER 2018-03-08 14:21 | Emergency (ER) | payer MEDICARE, MEDICAID ==
[2018-03-08] MEDS ORDERED: Acetaminophen TAB* 325 MG PO ONE (14:56)
--- NOTE | 2018-03-08 16:29 | RAD ---
Indication: Right knee injury. 5 views of the right knee demonstrates degenerative changes of the patellofemoral joint. Joint space narrowing in the medial compartment of the right knee is noted. No fracture is noted. Chondrocalcinosis is noted. 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 This was present on prior exam of June 08, 2017. Degenerative changes medial compartment right knee with chondrocalcinosis.
--- NOTE | 2018-03-08 16:30 | RAD ---
INDICATION: Right shoulder injury. TECHNIQUE: 4 views of the right shoulder were obtained. FINDINGS: The bones appear osteopenic and in normal alignment. There appears to be a nondisplaced fracture of the lateral aspect of the clavicle. There is mild to moderate osteoarthritic change in the acromioclavicular and glenohumeral joints. IMPRESSION: NONDISPLACED FRACTURE OF THE LATERAL ASPECT OF THE CLAVICLE.
--- NOTE | 2018-03-08 16:34 | RAD ---
INDICATION: Trauma, back pain. COMPARISON: Comparison is made with a prior CT of the lumbar spine from December 06, 2016. TECHNIQUE: 5 views of the lumbar spine were obtained including lateral, oblique, AP and a coned-down lateral view of the lumbar sacral junction. FINDINGS: The vertebra are in normal alignment. No fracture is seen. There is moderate to severe degenerative disc disease at the L2-L3, L3-L4 and L4-L5 levels. There are 2 calcific densities which project over the right renal region measuring 7 and 6 mm each most consistent with renal calculi. IMPRESSION: 1. NO EVIDENCE FOR FRACTURE. 2. MODERATE TO SEVERE DEGENERATIVE DISC DISEASE. 3. RIGHT RENAL CALCULI.
--- NOTE | 2018-03-08 16:42 | RAD ---
Indication: Fall, head injury. CT of the brain was performed without IV contrast. Ventricular structures are midline. No midline shift is noted. Central and cortical atrophy is noted. There is no evidence of intracranial mass or hemorrhage. No other high or low density lesions are identified. There is artifact arising from hardware overlying the right calvaria. IMPRESSION: Postoperative changes without evidence of intracranial mass or hemorrhage. No changes noted since February 19, 2018.
[2018-03-08 17:24] VITALS: BP 156/85
--- NOTE | 2018-03-08 18:22 | ED ---
Back Pain - HPI Summary HPI Summary: Patient is a 68-year-old female who presents to the emergency department for numerous injuries after fall that occurred just prior to arrival. Patient states she was getting on the [employer] when the door suddenly closed on her and she fell backwards onto the sidewalk. Patient is unsure if she struck her head but denies loss of consciousness. She is taking Plavix. Patient's main complaint is exacerbation of low chronic back pain, right shoulder pain and right knee pain. Symptoms are mild in severity. Movement makes symptoms worse. Rest makes symptoms better. - History of Current Complaint Pain Intensity: 5 Pain Scale Used: 0-10 Numeric <Jeremiah Lyle - Last Filed: 03/09/18 05:58> <Jennie Johnson - Last Filed: 03/09/18 12:24> - History of Current Complaint Chief Complaint: EDBackInjuryPain Stated Complaint: FALL Time Seen by Provider: 03/08/18 14:37 - Allergies/Home Medications Allergies/Adverse Reactions: Allergies Allergy/AdvReac Type Severity Reaction Status Date / Time No Known Allergies Allergy Verified 03/02/17 07:03 PMH/Surg Hx/FS Hx/Imm Hx Previously Healthy: Yes Endocrine/Hematology History: Reports: Hx Diabetes - ON ORAL MED Denies: Hx Thyroid Disease Cardiovascular History: Reports: Hx Hypertension - ON MEDICATION, Other Cardiovascular Problems/Disorders - IDDM II Respiratory History: Denies: Hx Asthma, Hx Chronic Obstructive Pulmonary Disease (COPD) GI History: Denies: Hx Ulcer History: Reports: Hx Kidney Stones - LAST SURGERY 2012 Sensory History: Reports: Hx Cataracts, Hx Contacts or Glasses - GLASSES, Hx Hearing Aid - HEARING AID-L; COCHLEAR IMPLANT RIGHT Opthamlomology History: Reports: Hx Cataracts, Hx Contacts or Glasses - GLASSES Neurological History: Reports: 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 CATARACT SURGERY- 2001- [facility]. COCHLEAR IMPLANT- [place], [place] 2013. KIDNEY STONE SURGERY- [facility]. 1985. cochlear implant. TONSILLECTOMY A CHILD Hx Anesthesia Reactions: No Infectious Disease History: No Infectious Disease History: Denies: Hx Hepatitis, Hx Human Immunodeficiency Virus (HIV), Traveled Outside the [place] in Last 30 Days - Family History Known Family History: Positive: Hypertension, Diabetes Negative: Cardiac Disease - Social History Occupation: Disabled Lives: Alone Alcohol Use: None Hx Substance Use: No Substance Use Type: Reports: None Smoking Status (MU): Never Smoked Tobacco <Jeremiah Lyle - Last Filed: 03/09/18 05:58> Review of Systems Cardiovascular: Negative Respiratory: Negative Gastrointestinal: Negative Positive: Other - low back pain, right shoulder pain, right knee pain Positive: Other - abrasion to right knee Negative: Headache, Weakness, Paresthesia, Numbness, Syncope All Other Systems Reviewed And Are Negative: Yes <Jeremiah Lyle - Last Filed: 03/09/18 05:58> Physical Exam Triage Information Reviewed: Yes Vital Signs On Initial Exam: Initial Vitals Temp Pulse Resp BP Pulse Ox 98.3 F 77 18 157/86 97 03/08/18 14:31 03/08/18 14:03/08/18 14:31 03/08/18 14:31 03/08/18 14:31 Vital Signs Reviewed: Yes Appearance: Positive: Pain Distress - Patient lying in bed, appears upset and is tearful. Nontoxic. Skin: Positive: Warm, Dry Head/Face: Positive: Normal Head/Face Inspection Eyes: Positive: Normal Neck: Positive: Supple, Nontender - No midline tenderness. Musculoskeletal: Positive: Other - Extremities are neurovascularly intact. 5 out of 5 strength in upper and lower extremities. Superficial abrasion noted to the right anterior knee with pain on palpation and movement knee. Pain to the upper lumbar spine midline. Mild pain diffusely over the right shoulder. Neurological: Positive: Normal, CN Intact II-III Psychiatric: Positive: Affect/Mood Appropriate <Jeremiah Lyle - Last Filed: 03/09/18 05:58> Vital Signs On Initial Exam: Initial Vitals Temp Pulse Resp BP Pulse Ox 98.3 F 77 18 157/86 97 03/08/18 14:31 03/08/18 14:31 03/08/18 14:31 03/08/18 14:31 03/08/18 14:31 <Jennie Johnson - Last Filed: 03/09/18 12:24> Diagnostics - Vital Signs Vital Signs Temp Pulse Resp BP Pulse Ox 03/08/18 17:23 98.8 F 73 17 156/85 97 03/08/18 14:31 98.3 F 77 18 157/86 97 <Jeremiah Lyle - Last Filed: 03/09/18 05:58> - Vital Signs Vital Signs Temp Pulse Resp BP Pulse Ox 03/08/18 17:23 98.8 F 73 17 156/85 97 03/08/18 14:31 98.3 F 77 18 157/86 97 <Jennie Johnson - Last Filed: 03/09/18 12:24> Back Pain Course/Dx - Course Course Of Treatment: Patient presenting to the ER for a back, shoulder and knee injury after falling while getting onto the bus. Vitals are stable. She is unsure if she struck her head but given the fact she is on Plavix Will obtain CT scan. X-rays of the shoulder, knee and lumbar spine ordered. Patient given Tylenol for pain. CT scan is negative for acute findings, reading per radiology. Lumbar spine and knee are negative for acute findings, reading per radiology. Shoulder x-ray shows a lateral, nondisplaced clavicle fracture, reading per radiology. On reexam patient is resting more comfortably and her daughter is now present. Results were discussed. Arm was placed in a sling. Advised to call the orthopedic clinic tomorrow for follow-up appointment. Continue Tylenol at home for pain as directed. Ice affected areas intermittently. Return to the ER symptoms change or worsen. Patient and daughter understand and agree with plan. <Jeremiah Lyle - Last Filed: 03/09/18 05:58> <Jennie Johnson - Last Filed: 03/09/18 12:24> - Diagnoses Provider Diagnoses: Clavicle fracture, Contusion of right knee, Lumbar strain Discharge - Sign-Out/Discharge Documenting (check all that apply): Discharge/Admit/Transfer - Billing Disposition and Condition Condition: GOOD Disposition: Home <Jeremiah Lyle - Last Filed: 03/09/18 05:58> - Billing Disposition and Condition Condition: GOOD Disposition: Home <Jennie Johnson - Last Filed: 03/09/18 12:24> - Discharge Plan Condition: Good Disposition: HOME Patient Education Materials: Clavicle Fracture (ED), Low Back Strain (ED), Knee Pain (ED) Referrals: Midura,Anjum T, MD [Primary Care Provider] - Alex Hidalgo MD [Medical Doctor] - Additional Instructions: Call Dr. Hidalgo's office tomorrow to schedule an appointment Keep sling in placed Ice and rest affected areas Tylenol for pain as directed Return to ER if symptoms change or worsen Attestation Statement User Type: Provider - I was available for consult. This patient was seen by the JEREL. The patient was not presented to, seen by, or examined by me. -Lauri <Jennie Johnson - Last Filed: 03/09/18 12:24>
== END 2018-03-08 17:23 | disposition home or self-care (01) ==
LOC: ED 14:21
DX: S42.034A Nondisplaced fracture of lateral end of right clavicle, initial encounter for closed fracture (principal); W19.XXXA Unspecified fall, initial encounter; Y92.480 Sidewalk as the place of occurrence of the external cause; N20.0 Calculus of kidney; M51.37 Other intervertebral disc degeneration, lumbosacral region; M11.261 Other chondrocalcinosis, right knee; M17.11 Unilateral primary osteoarthritis, right knee; F32.9 Major depressive disorder, single episode, unspecified; E11.9 Type 2 diabetes mellitus without complications; Z87.442 Personal history of urinary calculi; Z79.84 Long term (current) use of oral hypoglycemic drugs; Z79.899 Other long term (current) drug therapy; Z79.02 Long term (current) use of antithrombotics/antiplatelets
CPT/HCPCS: 70450; 72110; 99282; A9270-GY

== ENCOUNTER 2018-06-11 06:47 | Emergency (ER) | payer MEDICARE, MEDICAID ==
--- OUTSIDE RECORDS SUMMARY | 2018-06-11 07:08 | XMS REPORT ---
:1950 External Reference #:[id number] Author Organization [facility] Address [address] [place] [address] [place] [address] Phone [phone] Care Team Providers Name Role Phone Anjum Kincaid MD Primary Care Physician Unavailable Payers Type Date Identification Numbers Payment Provider Subscriber Medicare Primary Policy Number: [id number] Medicare Jacki Rees PayID: [id number] [address] [place] [address] Medigap Part B Effective: 2000 Policy Number: Medicare Jacki Rees [id number] Expires: 2018 PayID: [id number] [address] [place] [address] Medigap Part B Policy Number: [id number] Medicaid Jacki Rees Group Name: 1 1 [address] PayID: [id number] [place] [address] Problems Date Description Provider Status Onset: 05/25/2018 Aftercare following joint replacement Sarah Kellogg MD Active surgery Onset: 05/25/2018 Shoulder joint pain Sarah Kellogg MD Active Onset: 03/24/2018 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 Active unsp ang pctrs Onset: 03/24/2018 Pure hypercholesterolemia Melody Monteiro M.D. Active Onset: 03/11/2017 Essential hypertension Melody Monteiro M.D. Active Onset: 03/11/2017 Mixed hyperlipidemia Melody Monteiro M.D. Active Onset: 03/11/2017 Acute subendocardial infarction Melody Monteiro M.D. Active Onset: 06/24/2015 Contusion of left shoulder, subsequent Jesu Kearns M.D. Active encounter Onset: 05/13/2015 Sprain of shoulder and upper arm Jesu Kearns M.D. Active Family History Date Family Member(s) Problem(s) Comments General Cancer General Diabetes General Hypertension General Kidney Stones Mother Blood Clots Mother due to Unknown causes () Siblings 3 Social History Type Date Description Comments Lives With Alone Occupation Retired Cigarette Use Never Smoked Cigarettes ETOH Use Denies alcohol use Smoking Patient has never smoked Recreational Drug Use Denies Drug Use Daily Caffeine Diet soda 1-2 a week Exercise Type/Frequency Exercises rarely Allergies, Adverse Reactions, Alerts Date Description Reaction Status Severity Comments 03/11/2017 NKDA active Medications Medication Date Status Form Strength Qnty SIG Indications Ordering Provider Metoprolol 05/03/ Active Tablets ER 50mg 90tabs 1/2 tab in Melody Succinate ER 2016 24HR Am and 1 [place], tab in PM. Britney Cymbalta / Active 30mg once daily Unknown 0000 Lisinopril / Active 10mg once daily Unknown 0000 Metformin HCL / Active Tablets 1000mg 1 by mouth Unknown 0000 twice a day Glipizide / Active 10mg twice Unknown 0000 daily Aspirin Adult / Active Tablets DR 81mg 1 by mouth Unknown Low Dose 0000 every day Clopidogrel / Active Tablets 75mg 90tabs 1 by mouth Melody Bisulfate 0000 every day Britney Monteiro Atorvastatin / Active Tablets 80mg 30tabs 1 by mouth Melody Calcium 0000 every day Britney Monteiro Diltiazem CD / Active Caps ER 120mg 90caps 1 by mouth Melody 0000 24HR every day Britney Monteiro Ferrous Sulfate / Active Tablets 325(65Fe) 1 by mouth Unknown 0000 mg daily Pantoprazole / Active Tablets DR 20mg 30tabs 1 by mouth Melody Sodium 0000 every day Britney Monteiro Meloxicam / Active Tablets 15mg 1 by mouth Unknown 0000 every day Victoza / Active Solution 18mg/3ML inject 1.2 Unknown 0000 Pen-Inject mg daily Acetaminophen / Active Tablets 500mg 2 tabs by Unknown Extra Strength 0000 mouth every 12 hours as needed for pain or fever Vancomycin HCL 11/10/ Hx Solution 1500mg QS iv every Nir 2016 - Rec 24 hours D. 12/17/ through Rachel, 2015 Aci Britney Simvastatin / Hx 40mg once daily Unknown 0000 - at bedtime 2016 Percocet 00/ Hx Tablets 5-325mg 1-2 by Unknown 0000 - mouth 02/08/ every 4 to 2014 6 hours as needed pain Gabapentin / Hx Capsules 1 po qhs Unknown 0000 - to start and january 2016 increase as tolerated to 2 po qhs then 1 po qam and 2 po hs, gradually up to 3 tid prn pain Docusate Sodium / Hx Capsules 100mg 2 by mouth Unknown 0000 - twice a day 2015 Ferrous Sulfate / Hx Tablets 325(65Fe) 1 by mouth Unknown 0000 - mg twice a 2015 Miralax / Hx Packet 3350NF 17 gm Unknown 0000 - every day 11/17/ as needed 2015 Oxycodone-Aceta / Hx Tablets 5-325mg take 2 Unknown minophen 0000 - tablets by 12/16/ mouth 2015 every 4 hours as needed pain Metoprolol / Hx Tablets ER 50mg 90tabs 1 by mouth Melody Succinate 0000 - 24HR bid [place] 05/03/ Britney 2016 Medications Administered in Office Medication Date Status Form Strength Qnty SIG Indications Ordering Provider Technetium TC Administered Injection Ica Nuclear 99M 018 Schedule Tetrofosmin, Per Unit Dose Up To 40 Millicuries Technetium TC Administered Injection Melody 99M 018 Jayjay Monteiro M.D. Per Unit Dose Up To 40 Millicuries Depomedrol Administered Injection Bar F 40MG 018 MD Deon Depomedrol Administered Injection Bar F 40MG 018 MD Deon Depomedrol Administered Injection Drew 40MG Leticia De PA-C Vital Signs Date Vital Result Comment 05/25/2018 Height 61 inches 5'1" Weight 205.00 lb BP Systolic 118 mmHg BP Diastolic 66 mmHg Respiratory Rate 18 /min Pain Level 2 BMI (Body Mass Index) 38.7 kg/m2 05/24/2018 Height 61 inches 5'1" Weight 205.00 lb BP Systolic Sitting 130 mmHg BP Diastolic Sitting 80 mmHg Pain Level 4 BMI (Body Mass Index) 38.7 kg/m2 05/09/2018 Height 61 inches 5'1" Weight 205.00 lb BP Systolic 120 mmHg BP Diastolic 70 mmHg Respiratory Rate 18 /min Pain Level 2 BMI (Body Mass Index) 38.7 kg/m2 04/20/2018 Height 61 inches 5'1" Weight 206.00 lb Heart Rate 84 /min Respiratory Rate 15 /min Pain Level 4 BMI (Body Mass Index) 38.9 kg/m2 04/12/2018 Height 61 inches 5'1" Weight 205.00 lb BP Systolic Sitting 150 mmHg BP Diastolic Sitting 80 mmHg Pain Level 2 BMI (Body Mass Index) 38.7 kg/m2 03/31/2018 Height 61 inches 5'1" Weight 205.00 lb Heart Rate 74 /min BP Systolic Sitting 134 mmHg BP Diastolic Sitting 82 mmHg Respiratory Rate 16 /min Pain Level 0 BMI (Body Mass Index) 38.7 kg/m2 03/24/2018 Height 61 inches 5'1" Weight 205.00 lb with shoes Heart Rate 90 /min BP Systolic Sitting 120 mmHg Lue lg cuff BP Diastolic Sitting 72 mmHg Lue lg cuff BP Systolic Standing 120 mmHg Lue lg cuff BP Diastolic Standing 74 mmHg Lue lg cuff Respiratory Rate 16 /min BMI (Body Mass Index) 38.7 kg/m2 Ejection Fraction 55-60% date 06/06/17 ECHO 03/20/2018 Height 61 inches 5'1" Weight 207.00 lb BP Systolic Sitting 130 mmHg BP Diastolic Sitting 80 mmHg Pain Level 7 BMI (Body Mass Index) 39.1 kg/m2 03/16/2018 Height 61 inches 5'1" Weight 205.00 lb BP Systolic Sitting 148 mmHg BP Diastolic Sitting 90 mmHg Respiratory Rate 16 /min Body Temperature 98.8 F Pain Level 6 BMI (Body Mass Index) 38.7 kg/m2 03/10/2018 Height 61 inches 5'1" Weight 205.00 lb Heart Rate 72 /min Respiratory Rate 18 /min Body Temperature 97.9 F Pain Level 7 BMI (Body Mass Index) 38.7 kg/m2 01/17/2018 Height 61 inches 5'1" Heart Rate 89 /min BP Systolic 138 mmHg BP Diastolic 80 mmHg Respiratory Rate 16 /min Body Temperature 98.6 F Pain Level 2 10/11/2017 Height 61 inches 5'1" Weight 203.00 lb BP Systolic 122 mmHg BP Diastolic 74 mmHg Respiratory Rate 16 /min Pain Level 5 BMI (Body Mass Index) 38.4 kg/m2 08/30/2017 Height 61 inches 5'1" Weight 203.00 lb with shoes Heart Rate 78 /min BP Systolic Sitting 134 mmHg Lue large cuff BP Diastolic Sitting 72 mmHg Lue large cuff BP Systolic Standing 114 mmHg Lue-denies dizziness BP Diastolic Standing 70 mmHg Lue-denies dizziness Respiratory Rate 16 /min BMI (Body Mass Index) 38.4 kg/m2 Ejection Fraction 55-60% echo 06/06/17 06/28/2017 Height 61 inches 5'1" Weight 209.00 lb BP Systolic 132 mmHg BP Diastolic 84 mmHg Respiratory Rate 15 /min Body Temperature 98.3 F Pain Level 6 BMI (Body Mass Index) 39.5 kg/m2 06/16/2017 Height 61 inches 5'1" Weight 209.00 lb without shoes Heart Rate 68 /min BP Systolic Sitting 98 mmHg Lue lg cuff BP Diastolic Sitting 70 mmHg Lue lg cuff BP Systolic Standing 110 mmHg Lue lg cuff BP Diastolic Standing 72 mmHg Lue lg cuff Respiratory Rate 17 /min BMI (Body Mass Index) 39.5 kg/m2 Ejection Fraction 55-60% date 06/06/17 ECHO 04/04/2017 Height 61 inches 5'1" Weight 204.00 lb no shoes Heart Rate 66 /min BP Systolic Sitting 116 mmHg Rue lrg cuff BP Diastolic Sitting 76 mmHg Rue lrg cuff BP Systolic Standing 114 mmHg BP Diastolic Standing 66 mmHg Respiratory Rate 15 /min BMI (Body Mass Index) 38.5 kg/m2 Ejection Fraction 45-50% 03/02/2017-echo 03/11/2017 Height 61 inches 5'1" Weight 205.00 lb w/ shoes Heart Rate 64 /min reg BP Systolic Sitting 110 mmHg Rue, lg cuff BP Diastolic Sitting 74 mmHg Rue, lg cuff BP Systolic Standing 108 mmHg Rue BP Diastolic Standing 64 mmHg Rue Respiratory Rate 16 /min BMI (Body Mass Index) 38.7 kg/m2 Ejection Fraction 45-50% as of 03/02/17 echo 03/01/2016 Weight 212.00 lb Heart Rate 76 /min BP Systolic Sitting 126 mmHg BP Diastolic Sitting 76 mmHg O2 % BldC Oximetry 93 % 12/31/2015 Height 61 inches 5'1" Weight 203.50 lb Heart Rate 88 /min BP Systolic Sitting 114 mmHg BP Diastolic Sitting 80 mmHg Respiratory Rate 14 /min Body Temperature 97.8 F BMI (Body Mass Index) 38.4 kg/m2 12/18/2015 Height 61 inches 5'1" Weight 214.00 lb Pain Level 0 BMI (Body Mass Index) 40.4 kg/m2 12/03/2015 Height 61 inches 5'1" Weight 210.50 lb Heart Rate 88 /min BP Systolic Sitting 142 mmHg BP Diastolic Sitting 68 mmHg Respiratory Rate 14 /min Body Temperature 98.7 F BMI (Body Mass Index) 39.8 kg/m2 11/19/2015 Height 61 inches 5'1" Weight 214.00 lb Body Temperature 99.1 F Pain Level 0 BMI (Body Mass Index) 40.4 kg/m2 11/19/2015 Height 61 inches 5'1" Weight 218.12 lb Heart Rate 100 /min BP Systolic Sitting 124 mmHg BP Diastolic Sitting 70 mmHg Respiratory Rate 14 /min Body Temperature 98.8 F BMI (Body Mass Index) 41.2 kg/m2 10/15/2015 Height 61 inches 5'1" Weight 214.00 lb Pain Level 6 BMI (Body Mass Index) 40.4 kg/m2 05/13/2015 Height 61 inches 5'1" Weight 214.00 lb Pain Level 5 BMI (Body Mass Index) 40.4 kg/m2 03/11/2015 Height 61 inches 5'1" Weight 214.00 lb Pain Level 4 BMI (Body Mass Index) 40.4 kg/m2 01/07/2015 Height 61 inches 5'1" Weight 214.00 lb Body Temperature 98.9 F Pain Level 3 BMI (Body Mass Index) 40.4 kg/m2 12/10/2014 Height 61 inches 5'1" Heart Rate 92 /min BP Systolic 146 mmHg BP Diastolic 85 mmHg Body Temperature 98.9 F Pain Level 3 11/26/2014 Height 61 inches 5'1" Weight 214.00 lb Heart Rate 81 /min BP Systolic 128 mmHg BP Diastolic 84 mmHg Pain Level 7 BMI (Body Mass Index) 40.4 kg/m2 Results Test Date Test Result H/L Range Note Comp Metabolic Panel 04/04/2018 Sodium 142 mmol/L 135-145 Potassium 4.8 mmol/L 3.5-5.0 Chloride 108 mmol/L 101-111 Co2 Carbon Dioxide 27 mmol/L 22-32 Anion Gap 7 mmol/L 2-11 Glucose 169 mg/dL High 70-100 Blood Urea Nitrogen 17 mg/dL 6-24 Creatinine 1.04 mg/dL High 0.51-0.95 BUN/Creatinine Ratio 16.3 8-20 Calcium 9.3 mg/dL 8.6-10.3 Total Protein 6.0 g/dL Low 6.4-8.9 Albumin 3.8 g/dL 3.2-5.2 Globulin 2.2 g/dL 2-4 Albumin/Globulin Ratio 1.7 1-3 Total Bilirubin 0.50 mg/dL 0.2-1.0 Alkaline Phosphatase 56 U/L 34-104 Alt 12 U/L 7-52 Ast 11 U/L Low 13-39 Egfr Non- 52.7 >60 Egfr 63.8 >60 1 Lipid Profile (Trig/Chol/HDL) 04/04/2018 Triglycerides 232 mg/dL 2 Cholesterol 146 mg/dL 3 HDL Cholesterol 31.4 mg/dL 4 LDL Cholesterol 68 mg/dL 5 Lipid Profile (Trig/Chol/HDL) 05/30/2017 Triglycerides 200 mg/dL 6 Cholesterol 131 mg/dL 7 HDL Cholesterol 26.2 mg/dL 8 LDL Cholesterol 65 mg/dL 9 Comp Metabolic Panel 05/30/2017 Sodium 142 mmol/L 133-145 Potassium 4.7 mmol/L 3.5-5.0 Chloride 108 mmol/L 101-111 Co2 Carbon Dioxide 28 mmol/L 22-32 Anion Gap 6 mmol/L 2-11 Glucose 141 mg/dL High 70-100 Blood Urea Nitrogen 19 mg/dL 6-24 Creatinine 1.04 mg/dL High 0.51-0.95 BUN/Creatinine Ratio 18.3 8-20 Calcium 9.5 mg/dL 8.6-10.3 Total Protein 6.3 g/dL Low 6.4-8.9 Albumin 3.9 g/dL 3.2-5.2 Globulin 2.4 g/dL 2-4 Albumin/Globulin Ratio 1.6 1-3 Total Bilirubin 0.90 mg/dL 0.2-1.0 Alkaline Phosphatase 47 U/L 34-104 Alt 14 U/L 7-52 Ast 13 U/L 13-39 Egfr Non- 52.9 >60 Egfr 68.0 >60 10 Lipid Panel - [facility] 05/30/2017 Creatine Kinase(CK) 25 U/L 10-223 11 Laboratory test finding 02/09/2016 C Reactive Protein < 1.00 mg/L < 5.00 12 Laboratory test finding 12/09/2015 Vancomycin Trough 15.1 g/mL C Reactive Protein < 1.00 mg/L < 5.00 13 Comp Metabolic Panel 12/09/2015 Sodium 137 mmol/L 133-145 Potassium 4.6 mmol/L 3.5-5.0 Chloride 106 mmol/L 101-111 Co2 Carbon Dioxide 24 mmol/L 22-32 Anion Gap 7 mmol/L 2-11 Glucose 182 mg/dL High 70-100 Blood Urea Nitrogen 11 mg/dL 6-24 Creatinine 1.06 mg/dL High 0.51-0.95 BUN/Creatinine Ratio 10.4 8-20 Calcium 9.5 mg/dL 8.6-10.3 Total Protein 6.7 g/dL 6.4-8.9 Albumin 3.9 g/dL 3.2-5.2 Globulin 2.8 g/dL 2-4 Albumin/Globulin Ratio 1.4 1-3 Total Bilirubin 0.40 mg/dL 0.2-1.0 Alkaline Phosphatase 55 U/L 34-104 Alt 11 U/L 7-52 Ast 16 U/L 13-39 Egfr Non- 52.0 >60 Egfr 66.9 >60 14 CBC Auto Diff 12/09/2015 White Blood Count 5.7 10^3/uL 3.5-10.8 Red Blood Count 5.06 10^6/uL 4.0-5.4 Hemoglobin 11.1 g/dL Low 12.0-16.0 Hematocrit 37 % 35-47 Mean Corpuscular Volume 72 fL Low 80-97 15 Mean Corpuscular Hemoglobin 22 pg Low 27-31 Mean Corpuscular HGB Conc 30 g/dL Low 31-36 Red Cell Distribution Width 19 % High 10.5-15 Platelet Count 172 10^3/uL 150-450 Mean Platelet Volume 8 um3 7.4-10.4 Abs Neutrophils 3.5 10^3/uL 1.5-7.7 Abs Lymphocytes 1.5 10^3/uL 1.0-4.8 Abs Monocytes 0.4 10^3/uL 0-0.8 Abs Eosinophils 0.2 10^3/uL 0-0.6 Abs Basophils 0.1 10^3/uL 0-0.2 Abs Nucleated RBC 0.01 10^3/uL Granulocyte % 61.2 % 38-83 Lymphocyte % 26.2 % 25-47 Monocyte % 7.2 % 1-9 Eosinophil % 4.2 % 0-6 Basophil % 1.2 % 0-2 Nucleated Red Blood Cells % 0.1 Laboratory test finding 12/02/2015 Vancomycin Trough 14.7 g/mL 16 C Reactive Protein 1.46 mg/L < 5.00 17 Comp Metabolic Panel 12/02/2015 Sodium 138 mmol/L 133-145 Potassium 4.1 mmol/L 3.5-5.0 Chloride 108 mmol/L 101-111 Co2 Carbon Dioxide 23 mmol/L 22-32 Anion Gap 7 mmol/L 2-11 Glucose 131 mg/dL High 70-100 Blood Urea Nitrogen 13 mg/dL 6-24 Creatinine 0.96 mg/dL High 0.51-0.95 BUN/Creatinine Ratio 13.5 8-20 Calcium 9.1 mg/dL 8.6-10.3 Total Protein 6.2 g/dL Low 6.4-8.9 Albumin 3.8 g/dL 3.2-5.2 Globulin 2.4 g/dL 2-4 Albumin/Globulin Ratio 1.6 1-3 Total Bilirubin 0.30 mg/dL 0.2-1.0 Alkaline Phosphatase 51 U/L 34-104 Alt 10 U/L 7-52 Ast 10 U/L Low 13-39 Egfr Non- 58.3 >60 Egfr 75.0 >60 18 CBC Auto Diff 12/02/2015 White Blood Count 4.9 10^3/uL 3.5-10.8 Red Blood Count 4.42 10^6/uL 4.0-5.4 Hemoglobin 9.7 g/dL Low 12.0-16.0 Hematocrit 32 % Low 35-47 Mean Corpuscular Volume 71 fL Low 80-97 19 Mean Corpuscular Hemoglobin 22 pg Low 27-31 Mean Corpuscular HGB Conc 31 g/dL 31-36 Red Cell Distribution Width 19 % High 10.5-15 Platelet Count 157 10^3/uL 150-450 Mean Platelet Volume 7 um3 Low 7.4-10.4 Abs Neutrophils 2.7 10^3/uL 1.5-7.7 Abs Lymphocytes 1.4 10^3/uL 1.0-4.8 Abs Monocytes 0.5 10^3/uL 0-0.8 Abs Eosinophils 0.3 10^3/uL 0-0.6 Abs Basophils 0.1 10^3/uL 0-0.2 Abs Nucleated RBC 0 10^3/uL Granulocyte % 55.7 % 38-83 Lymphocyte % 27.6 % 25-47 Monocyte % 9.2 % High 1-9 Eosinophil % 6.3 % High 0-6 Basophil % 1.2 % 0-2 Nucleated Red Blood Cells % 0 CBC Auto Diff 11/26/2015 White Blood Count 3.8 10^3/uL 3.5-10.8 20 Red Blood Count 4.41 10^6/uL 4.0-5.4 20 Hemoglobin 9.8 g/dL Low 12.0-16.0 20 Hematocrit 32 % Low 35-47 20 Mean Corpuscular Volume 74 fL Low 80-97 20, 21 Mean Corpuscular Hemoglobin 22 pg Low 27-31 20 Mean Corpuscular HGB Conc 30 g/dL Low 31-36 20 Red Cell Distribution Width 20 % High 10.5-15 20 Platelet Count 146 10^3/uL Low 150-450 20 Mean Platelet Volume 7 um3 Low 7.4-10.4 20 Abs Neutrophils 1.8 10^3/uL 1.5-7.7 20 Abs Lymphocytes 1.3 10^3/uL 1.0-4.8 20 Abs Monocytes 0.4 10^3/uL 0-0.8 20 Abs Eosinophils 0.3 10^3/uL 0-0.6 20 Abs Basophils 0 10^3/uL 0-0.2 20 Abs Nucleated RBC 0 10^3/uL 20 Granulocyte % 46.9 % 38-83 20 Lymphocyte % 33.4 % 25-47 20 Monocyte % 10.0 % High 1-9 20 Eosinophil % 8.6 % High 0-6 20 Basophil % 1.1 % 0-2 20 Nucleated Red Blood Cells % 0.1 20 Laboratory test finding 11/26/2015 C Reactive Protein 5.47 mg/L High < 5.00 20, 22 Basic Metabolic Panel 11/26/2015 Sodium 141 mmol/L 133-145 20 Potassium 3.9 mmol/L 3.5-5.0 20 Chloride 105 mmol/L 101-111 20 Co2 Carbon Dioxide 26 mmol/L 22-32 20 Anion Gap 10 mmol/L 2-11 20 Glucose 124 mg/dL High 70-100 20 Blood Urea Nitrogen 10 mg/dL 6-24 20 Creatinine 0.90 mg/dL 0.51-0.95 20 BUN/Creatinine Ratio 11.1 8-20 20 Calcium 9.2 mg/dL 8.6-10.3 20 Egfr Non- 62.8 >60 20 Egfr 80.8 >60 20, 23 Laboratory test 10/24/2015 Body Fluid C&S SEE RESULT BELOW 24 finding Laboratory test 10/15/2015 C Reactive Protein 7.06 mg/L High < 5.00 25 finding Erythrocyte Sed Rate 67 mm/Hr High 0-40 CBC Auto Diff 10/15/2015 White Blood Count 7.8 10^3/uL 3.5-10.8 Red Blood Count 5.07 10^6/uL 4.0-5.4 Hemoglobin 10.9 g/dL Low 12.0-16.0 Hematocrit 36 % 35-47 Mean Corpuscular Volume 71 fL Low 80-97 26 Mean Corpuscular Hemoglobin 22 pg Low 27-31 Mean Corpuscular HGB Conc 30 g/dL Low 31-36 Red Cell Distribution Width 19 % High 10.5-15 Platelet Count 223 10^3/uL 150-450 Mean Platelet Volume 8 um3 7.4-10.4 Abs Neutrophils 4.4 10^3/uL 1.5-7.7 Abs Lymphocytes 2.6 10^3/uL 1.0-4.8 Abs Monocytes 0.5 10^3/uL 0-0.8 Abs Eosinophils 0.2 10^3/uL 0-0.6 Abs Basophils 0.1 10^3/uL 0-0.2 Abs Nucleated RBC 0 10^3/uL Granulocyte % 56.8 % 38-83 Lymphocyte % 33.0 % 25-47 Monocyte % 6.9 % 1-9 Eosinophil % 2.4 % 0-6 Basophil % 0.9 % 0-2 Nucleated Red Blood Cells % 0 1 Because ethnic data is not always readily available, this report includes an eGFR for both -Americans and non- Americans. The National Kidney Disease Education Program (NKDEP) does not endorse the use of the MDRD equation for patients that are not between the ages of 18 and 70, are , have extremes of body size, muscle mass, or nutritional status, or are non- or non-. According to the National Kidney Foundation, irrespective of diagnosis, the stage of the disease is based on the level of kidney function: Stage Description GFR(mL/min/1.73 m(2)) 1 Kidney damage with normal or decreased GFR 90 2 Kidney damage with mild decrease in GFR 60-89 3 Moderate decrease in GFR 30-59 4 Severe decrease in GFR 15-29 5 Kidney failure <15 (or dialysis) 2 Desirable: <150 Borderline High: 150-199 High: 200-499 Very High: >500 3 Desirable: <200 Borderline High: 200-239 High: >239 4 Low: <40 Desirable: 40-60 High: >60 5 Desirable: <100 Near Optimal: 100-129 Borderline High: 130-159 High: 160-189 Very High: >189 6 Desirable <150 Borderline high 150-199 High 200-499 Very High >500 7 Desirable <200 Borderline high 200-239 High >239 8 Low <40 Desirable: 40-60 High: >60 9 Desirable: <100 mg/dL Near Optimal: 100-129 mg/dL Borderline High: 130-159 mg/dL High: 160-189 mg/dL Very High: >189 mg/dL 10 Because ethnic data is not always readily available, this report includes an eGFR for both -Americans and non- Americans. The National Kidney Disease Education Program (NKDEP) does not endorse the use of the MDRD equation for patients that are not between the ages of 18 and 70, are , have extremes of body size, muscle mass, or nutritional status, or are non- or non-. According to the National Kidney Foundation, irrespective of diagnosis, the stage of the disease is based on the level of kidney function: Stage Description GFR(mL/min/1.73 m(2)) 1 Kidney damage with normal or decreased GFR 90 2 Kidney damage with mild decrease in GFR 60-89 3 Moderate decrease in GFR 30-59 4 Severe decrease in GFR 15-29 5 Kidney failure <15 (or dialysis) 11 Fasting in 3-4 months CC: PMD 12 Acute inflammation: >10.00 13 Acute inflammation: >10.00 14 Because ethnic data is not always readily available, this report includes an eGFR for both -Americans and non- Americans. The National Kidney Disease Education Program (NKDEP) does not endorse the use of the MDRD equation for patients that are not between the ages of 18 and 70, are , have extremes of body size, muscle mass, or nutritional status, or are non- or non-. According to the National Kidney Foundation, irrespective of diagnosis, the stage of the disease is based on the level of kidney function: Stage Description GFR(mL/min/1.73 m(2)) 1 Kidney damage with normal or decreased GFR 90 2 Kidney damage with mild decrease in GFR 60-89 3 Moderate decrease in GFR 30-59 4 Severe decrease in GFR 15-29 5 Kidney failure <15 (or dialysis) 15 Consistent with previous results on 12/02/15. 16 LAST DOSE 12/01/15 @ 1600 17 Acute inflammation: >10.00 18 Because ethnic data is not always readily available, this report includes an eGFR for both -Americans and non- Americans. The National Kidney Disease Education Program (NKDEP) does not endorse the use of the MDRD equation for patients that are not between the ages of 18 and 70, are , have extremes of body size, muscle mass, or nutritional status, or are non- or non-. According to the National Kidney Foundation, irrespective of diagnosis, the stage of the disease is based on the level of kidney function: Stage Description GFR(mL/min/1.73 m(2)) 1 Kidney damage with normal or decreased GFR 90 2 Kidney damage with mild decrease in GFR 60-89 3 Moderate decrease in GFR 30-59 4 Severe decrease in GFR 15-29 5 Kidney failure <15 (or dialysis) 19 Consistent with previous results on 11/26/15. 20 [facility] 1, Room Number 118W 21 Consistent with previous results on 11/17/15. 22 Acute inflammation: >10.00 23 Because ethnic data is not always readily available, this report includes an eGFR for both -Americans and non- Americans. The National Kidney Disease Education Program (NKDEP) does not endorse the use of the MDRD equation for patients that are not between the ages of 18 and 70, are , have extremes of body size, muscle mass, or nutritional status, or are non- or non-. According to the National Kidney Foundation, irrespective of diagnosis, the stage of the disease is based on the level of kidney function: Stage Description GFR(mL/min/1.73 m(2)) 1 Kidney damage with normal or decreased GFR 90 2 Kidney damage with mild decrease in GFR 60-89 3 Moderate decrease in GFR 30-59 4 Severe decrease in GFR 15-29 5 Kidney failure <15 (or dialysis) 24 SEE RESULT BELOW Name: JACKI REES : [address]: Maribell RUBIO Acct: [id number] Unit: [id number] AGE: 65 Location: Re10/24/15 SEX: F Status: REG REF SPEC: [id number] MARY: 10/24/15-[address] [facility] [address]: Maribell RUBIO REQ: [id number] RECD: 10/24/15-1212 STATUS: LUIS VASQUES DR: Anjum Kellogg MD _ SOURCE: BODY FLUID SPDESC:SHOULDER L ORDERED: BF Cult/GS, MRSA/SA SSTI Procedure Result Reported Site Body Fluid Gram Stain Final 10/24/15- 1251 ML 4+ Neutrophils 3+ Gram Positive Coccobacilli Intracellular Preparation By Direct Smear Body Fluid Culture Final 10/28/15- 1347 ML Organism 1 PROPIONIBACTERIUM ACNES Quantity 1+ MRSA/S. aureus SSTI PCR Final 10/24/15- 1401 ML Organism 1 MRSA NEGATIVE Organism 2 S.AUREUS NEGATIVE * ML - MAIN LAB ([facility]) . END OF REPORT * ML=Testing performed at Main Lab DEPARTMENT OF PATHOLOGY, [address] [place] [address] Maik Dubose M.D. Director [facility] # [id number] 25 Acute inflammation: >10.00 26 Consistent with previous results on 11/26/14. Procedures Date CPT Code Description Status 04/25/2018 44384 Stress Test Completed 04/20/201815900 Inject/Drain Joint/Bursa Major W/O US Completed 03/24/2018 57135 EKG Tracing & Interpretation Completed 10/11/2017 07982 Inject/Drain Joint/Bursa Major W/O US Completed 06/28/2017 34816 Inject/Drain Joint/Bursa Major W/O US Completed 06/06/2017 62900 Echocardiogram, Limited Study Completed 03/11/2017 34034 EKG Tracing & Interpretation Completed 03/06/2017 21149 EKG, Interpretation Only Completed 03/05/2017 78738 EKG, Interpretation Only Completed 03/05/2017 77329 Left Heart Cath. Incl S/I Coronaries, Angio S/I V Gram Completed If Done 03/04/2017 16144 EKG, Interpretation Only Completed 03/03/2017 38101 EKG, Interpretation Only Completed 03/02/2017 32860 ECHO Transthorasic Realtime 2D W Doppler & Color Flow Completed Hosp 03/02/2017 48574 EKG, Interpretation Only Completed 11/01/2015 70863 Humeral And Glenoid Components, Total Shoulder Completed 11/01/2015 75335 Humeral And Glenoid Components, Total Shoulder Completed 10/31/2015 02491 EKG, Interpretation Only Completed 11/27/2014 34259 Arthroplasty,Total Shoulder Replacement (TSR) Completed 11/27/2014 56891 Arthroplasty,Total Shoulder Replacement (TSR) Completed Encounters Type Date Location Provider CPT E/M Dx Office Visit 05/09/2018 [place] [address] S42.034D 10:30a Of Shea Office Visit 04/20/2018 [facility] Bar Chavarria 20346 M25.561 3:30p Of Shea AYON M17.11 Office Visit 04/12/2018 3:30p Sp[facility]igator Of [facility] Enedelia Pineda PA-C 13112 M54.2 M25.511 Office Visit 03/31/2018 3:15p [facility] Thais Ellington 97053 M25.511 Of Shea NEVILLE S42.034D Office Visit 03/24/2018 4:00p [facility] Melody Monteiro M.D. 72585 I10 E11.8 E78.00 R06.02 R07.9 I25.119 Office Visit 03/20/2018 3:00p Sp[facility]igator Of [facility] Enedelia Pineda PA-C 86813 M54.12 Office Visit 03/16/2018 2:00p [facility] [place] [address] M25.511 C.M.A. S42.034D Office Visit 03/10/2018 8:45a [facility] [place] [address] M25.511 C.M.A. S42.034A M54.2 W17.89xA Office Visit 02/21/2018 9:31a [facility],pc Azra Gómez 36832 R42 Hospitalists JACQUI Valencia I10 F32.9 E08.8 Office Visit 02/19/2018 9:30a [facility] [address] R42 Hospitalists I10 F32.9 E08.8 Office Visit 01/17/2018 10:00a [facility] [place], 46685 M54.5 Shea AYON M17.11 M16.11 M54.16 Office Visit 10/11/2017 11:15a [facility] [place], 92127 M17.11 Shea AYON M54.5 Office Visit 08/30/2017 10:30a [facility] JOANNE Rodriguez 90650 I25.10 E78.2 I10 Office Visit 06/28/2017 10:00a [facility] Of [place], 36102 M17.11 Shea AYON Office Visit 06/16/2017 3:45p [facility] Of Melody Monteiro M.D. 45056 I25.10 [facility] E78.2 I10 E11.8 Office Visit 04/04/2017 1:00p [facility] JOANNE Rodriguez 34950 I21.4 I25.10 E78.2 I42.9 Office Visit 03/11/2017 9:00a [facility] Of Melody Monteiro M.D. 56444 I21.4 [facility] AT [facility] I25.10 E78.2 I10 Office Visit 03/06/2017 9:50a [facility] Syd Herrera, 79989 I21.4 Britney Office Visit 03/06/2017 10:29a [facility], Raulito Loredo, 39954 I21.4 Hospitalists M.D. I16.0 E11.9 M25.512 Office Visit 03/05/2017 10:06a [facility] Syd Herrera M.D. 05669 I21.4 I25.10 I10 E11.9 Office Visit 03/05/2017 10:23a [facility] 16643 I21.4 Hospitalists M.D. I16.0 E11.9 M25.512 Office Visit 03/04/2017 2:48p [facility] Syd Herrera, 33018 I21.4 M.D. Office Visit 03/04/2017 10:21a [facility] 98398 I21.4 Hospitalists M.D. I16.0 E11.9 M25.512 Office Visit 03/03/2017 2:46p [facility] Syd Herrera, 91913 I21.4 M.D. Office Visit 03/03/2017 9:47a [facility] 30602 I21.4 Hospitalists M.D. E11.9 M25.512 I16.0 Office Visit 03/02/2017 9:46a [facility], [place] [address] I21.4 Hospitalists I16.0 E11.9 M25.512 Office Visit 03/02/2017 2:19p [facility] Of Melody Monteiro M.D. 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 M00.812 Office Visit 12/31/2015 2:20p [facility] Chante Smalls 80947 T84.59xA Infectious Diseases Britney Antunez T84.59xD Office Visit 12/03/2015 2:40p [facility] Chante Smalls 13419 T84.59xA Infectious Diseases Britney Antunez Office Visit 11/19/2015 1:40p [facility] Chante Smalls 90614 T84.59xA Infectious Diseases Britney Antunez M00.812 Office Visit 11/06/2015 10:02a [facility] 65498 M00.812 Hospitalists Britney E11.9 E78.0 I10 Office Visit 11/05/2015 8:51a [facility] Chante Smalls 72444 T84.59xA Infectious Diseases Britney Antunez B96.89 Office Visit 11/05/2015 10:01a [facility] 84330 M00.812 Hospitalists Britney E11.9 E78.0 I10 Office Visit 11/04/2015 8:36a [facility] Chante Smalls 35658 T84.59xA Infectious Diseases Britney Antunez B96.89 Office Visit 11/04/2015 10:00a [facility] 23131 M00.812 Hospitalists Britney E11.9 E78.0 I10 Office Visit 11/03/2015 8:23a [facility] Chante Smalls 29550 T84.59xA Infectious Diseases Britney Antunez B96.89 Office Visit 11/03/2015 9:59a [facility] 75901 M00.812 Hospitalists Britney E11.9 E78.0 I10 Office Visit 11/02/2015 9:59a [facility] 92479 M00.812 Hospitalists Britney E11.9 E78.0 I10 Office Visit 11/01/2015 9:58a [facility] 25288 M00.812 Hospitalists Britney E11.9 E78.0 I10 Office Visit 10/31/2015 9:57a [facility] [place], 54931 M00.812 Ass, Hospitalists Britney E11.9 E78.0 I10 Office Visit 10/31/2015 8:03a [facility] Chante Smalls 87820 T84.59xA Infectious Diseases Britney Antunez B96.89 Office Visit 10/30/2015 7:00a [facility] [place] [address] T84.59xA C.M.A. Office Visit 10/30/2015 9:57a [facility] Kain Echavarria, 10320 M00.812 Assoc, Hospitalists Britney E11.9 E78.0 I10 Office Visit 10/30/2015 10[facility] 69946 T84.59xA Infectious Diseases Britney Antunez B99.8 Office Visit 10/29/2015 9:54a [facility] Eliseo Dheerajmodesta 08179 M00.812 Assoc,pc Hospitalists Britney ABERNATHY E11.9 E78.0 I10 Office Visit 10/15/2015 3:00p [facility] [place] [address] Z96.612 C.M.A. M25.512 Office Visit 06/24/2015 11:00a [facility] Jesu Kearns M.D. 29492 S40.012D Of C.M.A. Office Visit 05/13/2015 10:10a [facility] Jesu Kearns M.D. 33878 840.8 Of C.M.A. Office Visit 03/11/2015 10:30a [facility] Jesu Kearns M.D. 94375 V54.11 Of C.M.A. Office Visit 11/30/2014 9:54a [facility], 21216 812.20 Assoc, Hospitalists GROUP CONTRACT ANALYST 250.00 272.4 401.9 Office Visit 11/29/2014 9:53a [facility], GROUP CONTRACT ANALYST 34310 812.20 Assoc, Hospitalists 250.00 272.4 401.9 Office Visit 11/28/2014 9:53a [facility], Eve Salomon, N.P. 02171 812.20 Hospitalists 250.00 272.4 401.9 Office Visit 11/27/2014 9:52a [facility], Eve Salomon, N.P. 20898 812.20 Hospitalists 250.00 272.4 401.9 Office Visit 11/26/2014 9:51a [facility], 71207 812.20 Assoc, Hospitalists N.P. 272.4 250.00 401.9 Office Visit 11/26/2014 1:00p [facility] Of Jesu Kearns M.D. 38928 727.61 [facility].A. 715.11 Plan of Care Future Appointment(s):07/24/2018 1:15 pm - Bar Chavarria MD at [facility].A.06/22/2018 3:30 pm - Rosario Alfred N.P. at [facility]05/25/2018 - Sarah Kellogg, MDM25.512 Pain in left shoulderNew Labs:CBC Auto DiffErythrocyte Sed RateC Reactive ProteinVitamin D Total 25(Oh)New Xrays:Chest PA & Lat 2 VWSCT Extremity Upper Left WoFollow up:Follow up: after wuzzaugH42.1 Aftercare following joint replacement surgery
--- OUTSIDE RECORDS SUMMARY | 2018-06-11 07:09 | XMS REPORT ---
:1950 External Reference #:[id number] Author Organization [employer] Address [address] [place] [address] [place] [address] Phone [phone] Care Team Providers Name Role Phone Anjum Kincaid MD Primary Care Physician Unavailable Payers Type Date Identification Numbers Payment Provider Subscriber Medicare Primary Policy Number: [id number] Medicare Jacki Rees PayID: [id number] [address] [place] [address] Medigap Part B Effective: 2000 Policy Number: Medicare Jacki Rees [id number] Expires: 2018 PayID: [id number] [address] [place] [address] Medigap Part B Policy Number: [id number] Medicaid Jacki Rees Group Name: 1 1 [address] PayID: [id number] [place] [address] Problems Date Description Provider Status Onset: 03/24/2018 Athscl heart disease of [place] art w Melody Monteiro M.D. Active [...] Sprain of shoulder and upper arm Jesu Kaerns M.D. Active Family History Date Family Member(s) [...] Succinate ER 2016 24HR Am and 1 Cayet[place], tab in PM. MLee Cymbalta / Active 30mg once daily Unknown [...] mouth Melody Bisulfate 0000 every day Britney oMnteiro Atorvastatin / Active Tablets 80mg 30tabs 1 [...] Nir 2016 - Rec 24 hours D. 03/31/ through 2015 Akua Tan Simvastatin // Hx 40mg once daily Unknown 0000 - at bedtime 2016 Percocet / Hx Tablets 5-325mg 1-2 by Unknown 0000 - mouth 02/08/ every 4 to 2014 6 hours as needed pain Gabapentin 00/ Hx Capsules 1 po qhs Unknown 0000 - to start and january 2016 increase as tolerated to 2 po qhs then 1 po qam and 2 po hs, gradually up to 3 tid prn pain Docusate Sodium / Hx Capsules 100mg 2 by mouth Unknown 0000 - twice a 2015 Ferrous Sulfate / Hx Tablets 325(65Fe) 1 by mouth Unknown 0000 - mg twice a 2015 Miralax / Hx Packet 3350NF 17 gm Unknown 0000 - every day as needed 2015 Oxycodone-Aceta / Hx Tablets [...] PA-C Vital Signs Date Vital Result Comment 05/24/2018 Height 61 inches 5'1" Weight 205.00 [...] Test Date Test Result H/L Range Note Lipid Profile (Trig/Chol/HDL) 04/04/2018 Triglycerides 232 mg/dL 1 Cholesterol 146 mg/dL 2 HDL Cholesterol 31.4 mg/dL 3 LDL Cholesterol 68 mg/dL 4 Comp Metabolic Panel 04/04/2018 Sodium 142 mmol/L [...] Egfr Non- 52.7 >60 Egfr 63.8 >60 5 Lipid Panel - [facility] 05/30/2017 Creatine Kinase(CK) 25 U/L 10-223 6 Comp Metabolic Panel 05/30/2017 Sodium 142 mmol/L [...] Egfr Non- 52.9 >60 Egfr 68.0 >60 7 Lipid Profile (Trig/Chol/HDL) 05/30/2017 Triglycerides 200 mg/dL 8 Cholesterol 131 mg/dL 9 HDL Cholesterol 26.2 mg/dL 10 LDL Cholesterol 65 mg/dL 11 Laboratory test finding 02/09/2016 C Reactive [...] Nucleated Red Blood Cells % 0 1 Desirable: <150 Borderline High: 150-199 High: 200-499 Very High: >500 2 Desirable: <200 Borderline High: 200-239 High: >239 3 Low: <40 Desirable: 40-60 High: >60 4 Desirable: <100 Near Optimal: 100-129 Borderline High: 130-159 High: 160-189 Very High: >189 5 Because ethnic data is not always readily [...] 15-29 5 Kidney failure <15 (or dialysis) 6 Fasting in 3-4 months CC: PMD 7 Because ethnic data is not always readily [...] 15-29 5 Kidney failure <15 (or dialysis) 8 Desirable <150 Borderline high 150-199 High 200-499 Very High >500 9 Desirable <200 Borderline high 200-239 High >239 10 Low <40 Desirable: 40-60 High: >60 11 Desirable: <100 mg/dL Near Optimal: 100-129 mg/dL Borderline High: 130-159 mg/dL High: 160-189 mg/dL Very High: >189 mg/dL 12 Acute inflammation: >10.00 13 Acute inflammation: [...] Consistent with previous results on 11/26/15. 20 [facility] 1, Room Number 118W 21 Consistent with [...] : [address]: Maribell RUBIO Acct: [id number] Unit: [id number] AGE: 65 Location: SP Re10/24/15 SEX: F Status: REG REF SPEC: [id number] MARY: 10/24/15-[address]: Maribell RUBIO REQ: [id number] RECD: 10/24/15-1212 STATUS: LUIS VASQUES DR: Anjum [...] S.AUREUS NEGATIVE * ML - MAIN LAB ([facility]) . END OF REPORT * ML=Testing performed at Main Lab DEPARTMENT OF PATHOLOGY, [address] [place] [address] Maik Dubose M.D. Director [facility] # [id number] 25 Acute inflammation: >10.00 26 Consistent with previous results on 11/26/14. Procedures Date CPT Code Description Status 04/25/2018 82029 Stress Test Completed 04/20/201824136 Inject/Drain Joint/Bursa Major W/O US Completed 03/24/2018 88764 EKG Tracing & Interpretation Completed 10/11/2017 Inject/Drain Joint/Bursa Major W/O US Completed 06/28/2017 Inject/Drain Joint/Bursa Major W/O US Completed 06/06/2017 03087 Echocardiogram, Limited Study Completed 03/11/2017 52510 EKG Tracing & Interpretation Completed 03/06/2017 61249 EKG, Interpretation Only Completed 03/05/2017 05930 EKG, Interpretation Only Completed 03/05/2017 16520 Left Heart Cath. Incl S/I Coronaries, Angio S/I V Gram Completed If Done 03/04/2017 95120 EKG, Interpretation Only Completed 03/03/2017 79021 EKG, Interpretation Only Completed 03/02/2017 88066 ECHO Transthorasic Realtime 2D W Doppler & Color Flow Completed Hosp 03/02/2017 66501 EKG, Interpretation Only Completed 11/01/2015 90243 Humeral And Glenoid Components, Total Shoulder Completed 11/01/2015 31449 Humeral And Glenoid Components, Total Shoulder Completed 10/31/2015 99184 EKG, Interpretation Only Completed 11/27/2014 90190 Arthroplasty,Total Shoulder Replacement (TSR) Completed 11/27/2014 09790 Arthroplasty,Total Shoulder Replacement (TSR) Completed Encounters Type Date Location Provider CPT E/M Dx Office Visit 04/20/2018 [facility] Bar Chavarria, 56922 M25.561 3:30p Of Shea AYON M17.11 Office Visit 04/12/2018 3:30p Sp[facility] Nav[facility] Enedelia Pineda PA-C 92164 M54.2 M25.511 Office Visit 03/31/2018 3:15p [facility] Thais Ellington 50927 M25.511 Of Shea NEVILLE S42.034D Office Visit 03/24/2018 4:00p [facility] Melody Monteiro M.D. 90233 I10 E11.8 E78.00 R06.02 R07.9 I25.119 Office Visit 03/20/2018 3:00p [facility] Enedelia Pineda PA-C 43783 M54.12 Office Visit 03/16/2018 2:00p [facility] [place] [address] M25.511 C.MTitusATitus S42.034D Office Visit 03/10/2018 8:45a [facility] [place] [address] M25.511 C.MHawa S42.034A M54.2 W17.89xA Office Visit 02/21/2018 9:31a [facility],neva Gómez 33755 R42 Hospitalists JACQUI Valencia I10 F32.9 E08.8 Office Visit 02/19/2018 9:30a [facility],pc Ama Sol, INSURANCE JOB TITLES 56356 R42 Hospitalists I10 F32.9 E08.8 Office Visit 01/17/2018 10:00a [facility] Of [place], 66562 M54.5 Shea AYON M17.11 M16.11 M54.16 Office Visit 10/11/2017 11:15a [facility] [place], 37607 M17.11 Shea AYON M54.5 Office Visit 08/30/2017 10:30a [facility] JOANNE Rodriguez 73822 I25.10 E78.2 I10 Office Visit 06/28/2017 10:00a [facility] Of [place] Chav[place], 28641 M17.11 Shea AYON Office Visit 06/16/2017 3:45p [facility] Of Melody Monteiro M.D. 24950 I25.10 [facility] E78.2 I10 E11.8 Office Visit 04/04/2017 1:00p [facility] JOANNE Rodriguez 85843 I21.4 I25.10 E78.2 I42.9 Office Visit 03/11/2017 9:00a [facility] Of Melody Monteiro M.D. 07807 I21.4 [facility] AT [facility] I25.10 E78.2 I10 Office Visit 03/06/2017 9:50a [facility] Syd Herrera, 93181 I21.4 Britney Office Visit 03/06/2017 10:29a [facility], Raulito Loredo, 16513 I21.4 Hospitalists MLee I16.0 E11.9 M25.512 Office Visit 03/05/2017 10:06a [facility] Syd Herrera M.D. 09035 I21.4 I25.10 I10 E11.9 Office Visit 03/05/2017 10:23a [facility],pc [place], 03168 I21.4 Hospitalists MTitusDTitus I16.0 E11.9 M25.512 Office Visit 03/04/2017 2:48p [facility] Syd Herrera, 82046 I21.4 M.D. Office Visit 03/04/2017 10:21a [facility], [place], 64700 I21.4 Hospitalists M.D. I16.0 E11.9 M25.512 Office Visit 03/03/2017 2:46p [facility] Syd Herrera, 12050 I21.4 M.D. Office Visit 03/03/2017 9:47a [facility], [place], 27231 I21.4 Hospitalists M.D. E11.9 M25.512 I16.0 Office Visit 03/02/2017 9:46a [facility], [place] [address] I21.4 Hospitalists I16.0 E11.9 M25.512 Office Visit 03/02/2017 2:19p [facility] Of Melody Monteiro M.D. 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 M00.812 Office Visit 11/06/2015 10:02a [facility], [place], 68410 M00.812 Hospitalists Britney E11.9 E78.0 I10 Office Visit 11/05/2015 8:51a [facility] Chante Smalls 32665 T84.59xA Infectious Diseases Britney Antunez B96.89 Office Visit 11/05/2015 10:01a [facility], 11913 M00.812 Hospitalists Britney E11.9 E78.0 I10 Office Visit 11/04/2015 8:36a [facility] Chante Smalls 14710 T84.59xA Infectious Diseases Britney Antunez B96.89 Office Visit 11/04/2015 10:00a [facility], 78322 M00.812 Hospitalists Britney E11.9 E78.0 I10 Office Visit 11/03/2015 8:23a [facility] Chante Smalls 21769 T84.59xA Infectious Diseases Britney Antunez B96.89 Office Visit 11/03/2015 9:59a [facility], 39607 M00.812 Hospitalists Britney E11.9 E78.0 I10 Office Visit 11/02/2015 9:59a [facility], 26339 M00.812 Hospitalists Britney E11.9 E78.0 I10 Office Visit 11/01/2015 9:58a [facility], 66133 M00.812 Hospitalists Britney E11.9 E78.0 I10 Office Visit 10/31/2015 9:57a [facility] [place], 86818 M00.812 Ass, Hospitalists Britney E11.9 E78.0 I10 Office Visit 10/31/2015 8:03a [facility] Chante Smalls 15975 T84.59xA Infectious Diseases Britney Antunez B96.89 Office Visit 10/30/2015 7:00a [facility] [place] [address] T84.59xA C.M.A. Office Visit 10/30/2015 9:57a [facility] [place], 11085 M00.812 Assoc, Hospitalists Britney E11.9 E78.0 I10 Office Visit 10/30/2015 10:54a [facility] Chante Smalls 84083 T84.59xA Infectious Diseases Britney Antunez B99.8 Office Visit 10/29/2015 9:[facility]a [facility] 88541 M00.812 Assoc,pc Hospitalists Britney ABERNATHY E11.9 E78.0 I10 Office Visit 10/15/2015 3:00p [facility] [place] [address] Z96.612 C.M.A. M25.512 Office Visit 06/24/2015 11:00a [facility] Jesu Kearns M.D. 71644 S40.012D Of C.M.A. Office Visit 05/13/2015 10:10a [facility] Jesu Kearns M.D. 78759 840.8 Of C.M.A. Office Visit 03/11/2015 10:30a [facility] Jesu Kearns M.D. 30275 V54.11 Of C.M.A. Office Visit 11/30/2014 9:54a [facility], 40766 812.20 Assoc,pc Hospitalists INSURANCE JOB TITLES 250.00 272.4 401.9 Office Visit 11/29/2014 9:53a [facility], INSURANCE JOB TITLES 04025 812.20 Assoc, Hospitalists 250.00 272.4 401.9 Office Visit 11/28/2014 9:53a [facility], Eve Salomon, N.P. 15416 812.20 Hospitalists 250.00 272.4 401.9 Office Visit 11/27/2014 9:52a [facility], Eve Salomon N.P. 31586 812.20 Hospitalists 250.00 272.4 401.9 Office Visit 11/26/2014 9:51a [facility], 27168 812.20 Assoc, Hospitalists N.P. 272.4 250.00 401.9 Office Visit 11/26/2014 1:00p [facility] Of Jesu Kearns M.D. 37827 727.61 C.M.A. 715.11 Plan of Care Future Appointment(s):05/25/2018 2:45 pm - Sarah Kellogg MD at [facility] C.M.A.07/24/2018 1:15 pm - Bar Chavarria MD at [facility].06/22/2018 3:30 pm - Rosario Alferd N.P. at [facility]05/24/2018 - JOANNE Rosa-CM54.16 Radiculopathy, lumbar regionFollow up:After MRI
--- NOTE | 2018-06-11 07:38 | ED ---
Throat Pain/Nasal Congestion - HPI Summary HPI Summary: Patient is a 68yo female with a right cochlear implant placed 5 years ago presenting to the ED with a worsening three-month history of feeling pressure behind the ear with the cochlear implant is located, intermittent ringing in the ear and a "humming sound." This was at its worst last evening. She also is endorsing some vertigo, but this is at her baseline and states this has been present for several years after obtaining the CI. Surgeon is in [place] and water quality manager is in [place] at [facility]. She has not followed up with either of these practitioners as they have been unable to get her in over the past 2 months. She denies any fevers, sweats, chills, chest pain, shortness of breath , visual changes. Denies any headache. She continues to be able to eat and drink okay and is still sleeping well. - History of Current Complaint Chief Complaint: EDEarPain Time Seen by Provider: 06/11/18 06:54 Hx Obtained From: Patient Onset/Duration: Gradual Onset Severity: Moderate - Epiglottits Risk Factors Epiglottis Risk Factors: Negative - Allergies/Home Medications Allergies/Adverse Reactions: Allergies Allergy/AdvReac Type Severity Reaction Status Date / Time No Known Allergies Allergy Verified 03/02/17 07:03 PMH/Surg Hx/FS Hx/Imm Hx Previously Healthy: Yes Endocrine/Hematology History: Reports: Hx Diabetes - ON ORAL MED Denies: Hx Thyroid Disease Cardiovascular History: Reports: Hx Hypertension - ON MEDICATION, Other Cardiovascular Problems/Disorders - IDDM II Respiratory History: Denies: Hx Asthma, Hx Chronic Obstructive Pulmonary Disease (COPD) GI History: Denies: Hx Ulcer History: Reports: Hx Kidney Stones - LAST SURGERY 2012 Sensory History: Reports: Hx Cataracts, Hx Contacts or Glasses - GLASSES, Hx Hearing Aid - HEARING AID-L; COCHLEAR IMPLANT RIGHT Opthamlomology History: Reports: Hx Cataracts, Hx Contacts or Glasses - GLASSES Neurological History: Reports: 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 [facility]ARACT SURGERY- 2001- [facility]. COCHLEAR IMPLANT- [place], [place] 2013. KIDNEY STONE SURGERY- [facility]- [place]. 1985. cochlear implant. TONSILLECTOMY A CHILD. Left shoulder replacement. Hx Anesthesia Reactions: No - Immunization History Hx Pertussis Vaccination: No Immunizations Up to Date: Yes Infectious Disease History: No Infectious Disease History: Denies: Hx Hepatitis, Hx Human Immunodeficiency Virus (HIV), Traveled Outside the [place] in Last 30 Days - Family History Known Family History: Positive: Hypertension, Diabetes Negative: Cardiac Disease - Social History Occupation: Employed Full-time Lives: With Family Alcohol Use: None Hx Substance Use: No Substance Use Type: Reports: None Smoking Status (MU): Never Smoked Tobacco Review of Systems Constitutional: Negative Negative: Fever, Chills, Fatigue, Skin Diaphoresis Positive: Ear Ache - posterior auricular pressure Negative: Palpitations, Chest Pain Negative: Shortness Of Breath, Cough Genitourinary: Negative Positive: no symptoms reported, see HPI Negative: Arthralgia, Myalgia Skin: Negative Neurological: Negative All Other Systems Reviewed And Are Negative: Yes Physical Exam Triage Information Reviewed: Yes Vital Signs On Initial Exam: Initial Vitals Temp Pulse Resp BP Pulse Ox 97 F 80 16 112/62 99 06/11/18 06:48 06/11/18 06:48 06/11/18 06:48 06/11/18 06:48 06/11/18 06:48 Vital Signs Reviewed: Yes Appearance: Positive: No Pain Distress, Well-Nourished Skin: Positive: Warm, Skin Color Reflects Adequate Perfusion Head/Face: Positive: Normal Head/Face Inspection Eyes: Positive: EOMI, HAILE, Conjunctiva Clear ENT: Positive: Pharynx normal, TMs normal, Other - hearing decreased to the R - this present x 3 months - patient not using CI at this time.. Negative: Pharyngeal erythema, Nasal congestion, Nasal drainage, TM bulging, TM dull, TM red Neck: Positive: Nontender, No Lymphadenopathy, Other: - no enlarged LN noted Respiratory/Lung Sounds: Positive: Clear to Auscultation, Breath Sounds Present Cardiovascular: Positive: RRR, Pulses are Symmetrical in both Upper and Lower Extremities Musculoskeletal: Positive: Strength/ROM Intact Neurological: Positive: Sensory/Motor Intact, Facial Symmetry - patient with hx of bells palsy -states feels similar, however, no assemetry noted Psychiatric: Positive: Normal, Affect/Mood Appropriate AVPU Assessment: Alert Diagnostics - Vital Signs Vital Signs Temp Pulse Resp BP Pulse Ox 06/11/18 06:48 97 F 80 16 112/62 99 - Laboratory Lab Statement: Any lab studies that have been ordered have been reviewed, and results considered in the medical decision making process. EENT Course/Dx - Course Course Of Treatment: Discussed with patient at length symptoms of cochlear implant pathologies. Patient has been seen in the ED prior to this visit for similar complaint of neck pain, posterior ear pain and vertigo. CT of brain obtained 3 months ago after a fall which is negative. Patient has no meningeal symptoms including nuchal rigidity, photophobia or fevers. Low risk of infection, d/t time of surgery (5 years +), no erythema or warmth to the mastoid area. Physical exam reveals intact CI under the skin with no obvious skin infection surrounding. No fluid noted. TM's without erythema, swelling or bulging. Cone of light visualized. D/t patients symptoms onset s/p fall 3 x prior, Ct brain and Ct neck was appropriate to assess for swelling or infection not well visualized on PE. She is greatly encouraged to follow up with her water quality manager and surgeon in [place] to assess for dysfunction and placement of the CI. She is treated with a short course of steroids for feelings of swelling, pressure, humming in the ear and feeling of tightness in the cheek - all of which she states is similar to the beginning of her previous bells palsy episode. Will prescribe steroid for dizziness and other symptoms listed above, however patient will follow up within this time. If symptoms worsen, she understands to return to the ED immediately. - Diagnoses Provider Diagnoses: Sound sensitivity in right ear, Dizziness Discharge - Sign-Out/Discharge Documenting (check all that apply): Patient Departure - Discharge Plan Condition: Stable Disposition: HOME Prescriptions: predniSONE TAB* [Deltasone TAB*] 50 mg PO DAILY #5 tab MDD 1 Referrals: Anjum Kincaid MD [Primary Care Provider] - - Billing Disposition and Condition Condition: STABLE Disposition: Home
--- NOTE | 2018-06-11 08:33 | RAD ---
INDICATION: Right ear pain and dizziness patient with a cochlear implant COMPARISON: Most recent CT of the brain is dated March 08, 2018 TECHNIQUE: Contiguous axial sections of the brain were obtained from the skull base to the vertex without contrast. FINDINGS: The patient's cochlear implant creates streak artifact at the level of the right temporal and parietal bones that somewhat obscures the brain parenchyma. The ventricles, cisterns and sulci are within normal limits. The carrasquillo-white matter differentiation is adequately maintained and there is no sulcal effacement. No significant focal abnormality or mass effect is present. There is no evidence for intracranial hemorrhage. The patient's cochlear implant appears to be appropriately positioned at the right temporal bone. There is no suspicious surrounding fluid. The visualized portion of the paranasal sinuses appear clear. The mastoid air cells are well aerated bilaterally. IMPRESSION: 1. Normal CT of the brain. 2. There is a right-sided cochlear implant that appears to be appropriately positioned without surrounding fluid or other suspicious findings to indicate an infection.
--- NOTE | 2018-06-11 08:45 | RAD ---
INDICATION: Right ear pain in a patient with a cochlear implant COMPARISON: None TECHNIQUE: A CT scan of the neck was performed without contrast. Contiguous axial sections were obtained from the skull base through the lung apices. Images were reconstructed in the coronal and sagittal planes. FINDINGS: The cochlear implant appears to be appropriately positioned overlying the right temporal and parietal bones. The airway is patent. The epiglottis and aryepiglottic folds appear within normal limits. No retropharyngeal soft tissue swelling is noted. No significant enlarged nodes are seen. The parotid and submandibular glands appear to be within normal limits. The thyroid gland appears normal. The visualized portion of the paranasal sinuses and mastoid air cells appear clear. There is coarse calcification at the bilateral carotid bulbs and arch of the aorta. Degenerative changes of the cervical spine includes loss of intervertebral disc height and marginal osteophyte formation. There is nonspecific straightening of the normal cervical lordosis but the vertebral bodies and facet joints are otherwise appropriately aligned. IMPRESSION: 1. The right cochlear implant appears to be appropriately positioned without surrounding fluid or other signs of infection. 2. Chronic and degenerative changes described in the body the report without CT apparent acute abnormality.
[2018-06-11 09:16] VITALS: BP 152/82
== END 2018-06-11 09:15 | disposition home or self-care (01) ==
LOC: ED 06:47
DX: H93.231 Hyperacusis, right ear (principal); R42 Dizziness and giddiness; Z96.21 Cochlear implant status; I10 Essential (primary) hypertension; F32.9 Major depressive disorder, single episode, unspecified; Z79.899 Other long term (current) drug therapy
CPT/HCPCS: 70450; 70490; 99282

== ENCOUNTER 2018-07-09 13:55 | Emergency (ER) | payer MEDICARE, MEDICAID ==
[2018-07-09 14:32] VITALS: BP 149/75
--- NOTE | 2018-07-09 14:57 | UC ---
Lower Extremity/Ankle HPI - HPI Summary HPI Summary: STUMBLED GETTING ONTO THE BUS ABOUT 1 WEEK AGO AND TWISTED HER LEFT FOOT. HAS PERSISTENT BRUISING OVER THE TOP OF HER FOOT AND SWELLING OF THE ANKLE AND FOOT. IS ABLE TO WEIGHT BEAR WITHOUT TOO MUCH PAIN BUT IS CONCERNED THAT SWELLING AND BRUISING ARE NOT IMPROVING. - History of Current Complaint Chief Complaint: UCLowerExtremity Stated Complaint: FOOT COMPLAINT Time Seen by Provider: 07/09/18 14:47 Hx Obtained From: Patient, Family/Consulting Business Developer - DAUGHTER Onset/Duration: Sudden Onset, Lasting Days, Still Present Severity Initially: Moderate Severity Currently: Moderate Pain Intensity: 5 Pain Scale Used: 0-10 Numeric Aggravating Factor(s): Standing, Ambulation Alleviating Factor(s): Rest Able to Bear Weight: Yes - Allergies/Home Medications Allergies/Adverse Reactions: Allergies Allergy/AdvReac Type Severity Reaction Status Date / Time No Known Allergies Allergy Verified 07/09/18 14:33 PMH/Surg Hx/FS Hx/Imm Hx Endocrine History: Diabetes Cardiovascular History: Cardiac Disease, Hypertension Psychological History: Depression - Surgical History Surgical History: Yes Surgery Procedure, Year, and Place: carpal tunnel both wrists . CATARACT SURGERY- 2001- [facility]. [facility]LEAR IMPLANT- [place], [place] 2013. KIDNEY STONE SURGERY- [facility]. 1985. cochlear implant. TONSILLECTOMY A CHILD. Left shoulder replacement. - Family History Known Family History: Positive: Hypertension, Diabetes Negative: Cardiac Disease - Social History Alcohol Use: None Substance Use Type: None Smoking Status (MU): Never Smoked Tobacco - Immunization History Most Recent Influenza Vaccination: 2014 Most Recent Tetanus Shot: 2013 Most Recent Pneumonia Vaccination: 2014 Review of Systems Constitutional: Negative Skin: Bruising Respiratory: Negative Cardiovascular: Negative Gastrointestinal: Negative Musculoskeletal: Arthralgia, Decreased ROM, Edema All Other Systems Reviewed And Are Negative: Yes Physical Exam Triage Information Reviewed: Yes Appearance: Well-Appearing, No Pain Distress, Well-Nourished Vital Signs: Initial Vital Signs Temp 97.5 F 07/09/18 14:28 Pulse 102 07/09/18 14:28 Resp 18 07/09/18 14:28 BP 149/75 07/09/18 14:28 Pulse Ox 98 07/09/18 14:28 Vital Signs Reviewed: Yes Eyes: Positive: Conjunctiva Clear ENT: Positive: Hearing grossly normal Neck: Positive: Supple Respiratory: Positive: No respiratory distress, No accessory muscle use Cardiovascular: Positive: Pulses Normal Abdomen Description: Positive: Soft Musculoskeletal: Positive: ROM Limited @ - LEFT ANKLE, Edema @ - TRACE PITTING EDEMA RIGHT FOOT/ANKLE. 2+ PITTING EDEMA LEFT FOOT/ANKLE, Other: - TTP LEFT ANKLE LATERAL MALLEOLUS. TTP LEFT FOOT 2ND-4TH METATARSALS Neurological: Positive: Alert Psychological: Positive: Age Appropriate Behavior Skin: Positive: Other - BRUISING DORSUM OEFT FOOT Diagnostics - Radiology LEFT ANKLE/FOOT XRAYS Xray Interpretation: Positive (See Comments) - NONDISPLACED FRACTURES ALONG THE BASES OF THE PROXIMAL PHALANX OF THE SECOND AND FIFTH DIGITS Radiology Interpretation Completed By: Radiologist Lower Extremity Course/Dx - Differential Dx/Diagnosis Provider Diagnoses: NONDISPLACED FRACTURES ALONG THE BASES OF THE PROXIMAL PHALANX OF THE SECOND AND FIFTH TOES - LEFT FOOT Discharge - Sign-Out/Discharge Documenting (check all that apply): Patient Departure All imaging exams completed and their final reports reviewed: Yes - Discharge Plan Condition: Stable Disposition: HOME Patient Education Materials: Toe Fracture (ED) Referrals: Anjum Kincaid MD [Primary Care Provider] - If Needed Seven Vidal MD [Medical Doctor] - 2 Weeks Additional Instructions: XRAY TODAY SHOWS NONDISPLACED FRACTURES ALONG THE BASES OF THE PROXIMAL PHALANX OF THE SECOND AND FIFTH DIGITS. ROMEO WRAP AND POST-OP SHOE FOR COMFORT AND TO HELP WITH MOBILITY. CALL [facility] FOR A FOLLOW-UP APPT IN THE NEXT COUPLE OF WEEKS. OTC MEDS NEEDED FOR DISCOMFORT. - Billing Disposition and Condition Condition: STABLE Disposition: Home
--- NOTE | 2018-07-09 15:21 | RAD ---
HISTORY: FALL 1 WK AGO. PAIN LATERALLY COMPARISONS: None VIEWS: 6 , Frontal, lateral, and oblique views of the left ankle and left foot FINDINGS: BONE DENSITY: There is diffuse osteopenia. BONES: There are nondisplaced fractures of the lateral aspects of the bases of the proximal phalanx of the second digit and the proximal phalanx of the fifth digit. There are posterior and plantar calcaneal enthesophytes. There is remote avulsion fracture of the medial malleolus. 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 There is osteoarthritis of the MTP and interphalangeal joints. ALIGNMENT: There is no dislocation. SOFT TISSUES: Unremarkable. OTHER FINDINGS: None. IMPRESSION: NONDISPLACED FRACTURES ALONG THE BASES OF THE PROXIMAL PHALANX OF THE SECOND AND FIFTH DIGITS
== END 2018-07-09 15:59 | disposition home or self-care (01) ==
LOC: UCEAST 13:55
DX: S92.515A Nondisplaced fracture of proximal phalanx of left lesser toe(s), initial encounter for closed fracture (principal); X50.1XXA Overexertion from prolonged static or awkward postures, initial encounter; Y92.811 Bus as the place of occurrence of the external cause
CPT/HCPCS: 99213; G0463

== ENCOUNTER → 2018-12-21 17:33 | Emergency (ER) | payer MEDICARE, MEDICAID ==
[~2018-12-21 17:33] MED LIST: NS 0.9% 1000 ML** 1,000 ML IV.FLUID IV ONE; Sulfamethox/Trimethoprim DS 800/160* TAB PO ONE
--- NOTE | 2018-12-21 18:17 | ED ---
HPI Diabetic - HPI Summary HPI Summary: A 68 y/o F brought in by ambulance presents to ED with elevated glucose (597 per EMS) onset [employer]SE[employer] BLINDSTITCH. Associated sx: tremulous/twitchy, flushed, nausea, CP described as pressure, SOB, diarrhea, general confusion - she says she's been "out of it." Pt denies any fever, chills, erythema of eyes, sore throat, cough, abdominal pain, vomiting, dysuria, hematuria, myalgia, edema, rash, or dizziness. She has chronic back and L knee pain. Per daughter, she walked to the bank a few days ago, which is farther than she usually walks. Pt takes Lasix and Gabapentin, Cymbalta. Sees Dr. Kincaid, PCP. PMHx: DM, MS, deafness ( hearing aid in L ear), speech impediment, depression, anxiety. Pt goes to pain clinic for her back pain. - History Of Current Complaint Chief Complaint: EDDiabeticProb Time Seen by Provider: 12/21/18 17:52 Hx Obtained From: Patient, Family/Nutrition Partner - daughter Onset/Duration: Still Present Timing: Constant Severity Initially: Moderate Severity Currently: Moderate Character: Confused - "out of it" Aggravating: Change in Activity Level Associated Signs & Symptoms: Diarrhea, Nausea, Shortness of Breath - Allergies/Home Medications Allergies/Adverse Reactions: Allergies Allergy/AdvReac Type Severity Reaction Status Date / Time No Known Allergies Allergy Verified 12/04/18 11:24 Home Medications: Home Medications Diazepam TAB(NF) [Valium TAB(NF)] 2 mg PO Q6HR PRN 12/21/18 [History Confirmed 12/21/18] Liraglutide (NF) [Victoza (NF)] 1.2 mg SUBCUT DAILY 12/21/18 [History Confirmed 12/21/18] Meclizine TAB* [Antivert 12.5 TAB*] 25 mg PO Q6HR PRN 12/21/18 [History Confirmed 12/21/18] Meloxicam(NF) [Mobic(NF)] 15 mg PO DAILY WITH MEAL 12/21/18 [History Confirmed 12/21/18] PMH/Surg Hx/FS Hx/Imm Hx Previously Healthy: No Endocrine/Hematology History: Reports: Hx Diabetes - type 2 dm Denies: Hx Thyroid Disease Cardiovascular History: Reports: Hx Hypercholesterolemia, Hx Hypertension, Other Cardiovascular Problems/Disorders - IDDM II Respiratory History: Denies: Hx Asthma, Hx Chronic Obstructive Pulmonary Disease (COPD) GI History: Denies: Hx Ulcer History: Reports: Hx Kidney Stones - LAST SURGERY 2012 Musculoskeletal History: Reports: Hx Arthritis Sensory History: Reports: Hx Cataracts, Hx Contacts or Glasses - GLASSES, Hx Hearing Aid - HEARING AID-L; COCHLEAR IMPLANT RIGHT Opthamlomology History: Reports: Hx Cataracts, Hx Contacts or Glasses - GLASSES Neurological History: Reports: 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 [facility]ARACT SURGERY- 2001- [facility]. COCHLEAR IMPLANT- [place], [place] 2013. KIDNEY STONE SURGERY- [facility]. 1985. cochlear implant. TONSILLECTOMY A CHILD. Left shoulder replacement x2 Hx Anesthesia Reactions: No Infectious Disease History: No Infectious Disease History: Denies: Hx Hepatitis, Hx Human Immunodeficiency Virus (HIV), Traveled Outside the in Last 30 Days - Family History Known Family History: Positive: Hypertension, Diabetes Negative: Cardiac Disease - Social History Occupation: Disabled Lives: Alone Alcohol Use: None Hx Substance Use: No Substance Use Type: Reports: None Hx Tobacco Use: No Smoking Status (MU): Never Smoked Tobacco Review of Systems Positive: Other - pos: tremulous/twitchy; flushed. Negative: Fever, Chills Negative: Drainage Negative: Sore Throat Positive: Chest Pain - "pressure" Positive: Shortness Of Breath. Negative: Cough Positive: Diarrhea, Nausea. Negative: Abdominal Pain, Vomiting Negative: dysuria, hematuria Negative: Myalgia, Edema Negative: Rash Neurological: Other - pos: general confusion ("out of it"). neg: dizziness All Other Systems Reviewed And Are Negative: Yes Physical Exam - Summary Physical Exam Summary: Constitutional: Well-developed, Well-nourished, Alert. (-) Distressed Skin: Warm, Dry HENT: Normocephalic; Atraumatic Eyes: Conjunctiva normal Neck: Musculoskeletal ROM normal neck. (-) JVD, (-) Stridor, (-) Tracheal deviation Cardio: Rhythm regular, rate normal, Heart sounds normal; Intact distal pulses; The pedal pulses are 2+ and symmetric. Radial pulses are 2+ and symmetric. (-) Murmur Pulmonary/Chest wall: Effort normal. (-) Respiratory distress, (-) Wheezes, (-) Rales Abd: Soft, (-) epigastric tenderness, (-) Distension, (-) Guarding, (-) Rebound Musculoskeletal: (-) Edema Lymph: (-) Cervical adenopathy Neuro: Alert, Oriented x3 Psych: Mood and affect Normal Triage Information Reviewed: Yes Vital Signs On Initial Exam: Initial Vitals Temp Pulse Resp BP Pulse Ox 98.4 F 81 18 154/81 96 12/21/18 17:39 12/21/18 17:39 12/21/18 17:39 12/21/18 17:39 12/21/18 17:39 Vital Signs Reviewed: Yes Diagnostics - Vital Signs Vital Signs Temp Pulse Resp BP Pulse Ox 12/21/18 17:39 98.4 F 81 18 154/81 96 - Laboratory Result Diagrams: 12/21/18 18:17 12/21/18 18:17 Lab Statement: Any lab studies that have been ordered have been reviewed, and results considered in the medical decision making process. - Radiology CXR Radiology Interpretation Completed By: ED Physician Summary of Radiographic Findings: No acute disease. - EKG 1806 Cardiac Rate: NL - 74 bpm EKG Rhythm: Sinus Rhythm Summary of EKG Findings: No STEMI Re-Evaluation - Re-Evaluation 1 Re-Evaluation Time: 21:40 Change: Improved Comment: Discussing results with pt and plan to DC. Diabetic Course/Dx - Course Course Of Treatment: Pt is a 68 y/o F presenting with elevated glucose (597 per EMS), tremors, nausea, CP described as pressure, SOB, diarrhea, and general confusion she's been "out of it." Pt takes Lasix and Gabapentin, Cymbalta. Sees Dr. Kincaid, PCP. PMHx: DM, MS, deafness (hearing aid in L ear), speech impediment, depression, anxiety. Pt seen at pain clinic. UA shows bacteria, nitrates, WBC, RBC and glucose. I do no suspect sepsis in this pt. Will discharge patient home with Bactrim. - Diagnoses Provider Diagnoses: UTI (urinary tract infection), Dehydration, Hyperglycemia Discharge - Sign-Out/Discharge Documenting (check all that apply): Patient Departure - DC Patient Received Moderate/Deep Sedation with Procedure: No - Discharge Plan Condition: Stable Disposition: HOME Prescriptions: Sulfamethox/Trimethoprim DS* [Bactrim DS 800/160 TAB*] 1 tab PO BID #10 tab Patient Education Materials: Sulfamethoxazole/Trimethoprim (By mouth), Urinary Tract Infection in Older Adults (ED) Referrals: Anjum Kincaid MD [Primary Care Provider] - [facility] [Outside] Additional Instructions: Return to the emergency department for changing or worsening symptoms. - Attestation Statements Document Initiated by Scribe: Yes Documenting Scribe: Bharati Dudley Provider For Whom Scribe is Documenting (Include Credential): Dr. Abhijit Carr MD Scribe Attestation: Bharati Cadena, scribed for Dr. Abhijit Carr MD on 12/21/18 at [id number]. Status of Scribe Document: Ready
[2018-12-21 18:25] LABS: ABS Basophils 0.1 10^3/ul (0-0.2); ABS Eosinophils 0.4 10^3/ul (0-0.6); ABS Lymphocytes 1.9 10^3/ul (1.0-4.8); ABS Monocytes 0.4 10^3/ul (0-0.8); ABS Neutrophils 3.4 10^3/ul (1.5-7.7); ABS Nucleated RBC 0 10^3/ul; Eosinophil % 6.1 %; Hematocrit 31 % (33-41); Hemoglobin 9.8 g/dL (12.0-16.0); Lymphocyte % 30.5 %; Mean Corpuscular HGB Conc 32 g/dL (31-36); Mean Corpuscular Hemoglobin 25 pg (27-31); Mean Corpuscular Volume 80 fL (80-97); Mean Platelet Volume 7.6 fL (7.4-10.4); Nucleated Red Blood Cells % 0.1; Platelet Count 122 10^3/uL (150-450); Red Blood Count 3.87 10^6 /uL (3.70-4.87); Red Cell Distribution Width 18 % (10.5-15); White Blood Count 6.1 10^3/uL (3.5-10.8)
[2018-12-21 18:43] LABS: Albumin 3.6 g/dL (3.2-5.2); Albumin/Globulin Ratio 1.6 (1-3); BUN/Creatinine Ratio 16.9 (8-20); EGFR African American 55.1 (>60); EGFR Non-African American 45.6 (>60); Globulin 2.2 g/dL (2-4); Magnesium 1.6 mg/dL (1.9-2.7); Potassium 4.4 mmol/L (3.5-5.0); Total Bilirubin 0.5 mg/dL (0.2-1.0); Total Protein 5.8 g/dL (6.4-8.9)
[2018-12-21 18:45] LABS: Troponin I 0.01 ng/mL (<0.04)
[2018-12-21 19:03] LABS: TSH (Thyroid Stimulating Horm) 2.09 mcIU/mL (0.34-5.60)
[2018-12-21 19:25] LABS: Free T4 0.88 ng/dL (0.61-1.12)
[2018-12-21 20:45] LABS: Urine Appearance Cloudy; Urine Bacteria 1+ (Absent); Urine Bilirubin Negative (Negative); Urine Blood Negative (Negative); Urine Color Yellow; Urine Glucose 3+(>=500 mg/dL) (Negative); Urine Ketones Negative (Negative); Urine Nitrite Positive (Negative); Urine Protein Negative (Negative); Urine Red Blood Cell 1+(3-5/hpf) (Absent); Urine Specific Gravity 1.003 (1.010-1.030); Urine Urobilinogen Negative (Negative); Urine White Blood Cell 3+(>20/hpf) (Absent)
[2018-12-21 21:32] LABS: Urine Appearance Cloudy; Urine Bacteria 1+ (Absent); Urine Bilirubin Negative (Negative); Urine Blood Negative (Negative); Urine Color Straw; Urine Glucose 2+(150 mg/dL) (Negative); Urine Ketones Negative (Negative); Urine Nitrite Positive (Negative); Urine Protein Negative (Negative); Urine Red Blood Cell 1+(3-5/hpf) (Absent); Urine Specific Gravity 1.003 (1.010-1.030); Urine Squamous Epithelial Cell Present (Absent); Urine Urobilinogen Negative (Negative); Urine White Blood Cell 2+(11-20/hpf) (Absent)
[2018-12-21 22:33] VITALS: BP 131/86
== END | disposition home or self-care (01) ==
LOC: ED 17:33
DX: N39.0 Urinary tract infection, site not specified (principal); E86.0 Dehydration; E11.65 Type 2 diabetes mellitus with hyperglycemia; J44.9 Chronic obstructive pulmonary disease, unspecified; I10 Essential (primary) hypertension; E78.00 Pure hypercholesterolemia, unspecified; F32.9 Major depressive disorder, single episode, unspecified; R47.9 Unspecified speech disturbances; Z79.899 Other long term (current) drug therapy; Z97.4 Presence of external hearing-aid
CPT/HCPCS: 36415; 71045; 80053; 81003; 81015; 83605; 83735; 84439; 84443; 84484; 85025; 87077; 87086; 87186; 93005; 96360; 96361; 99283; A9270-GY

== ENCOUNTER 2018-12-23 11:48 | Inpatient (IN) | payer MEDICARE, MEDICAID ==
[2018-12-23] MEDS ORDERED: NS 0.9% 1000 ML** 1,000 ML IV ONE (11:51)
--- NOTE | 2018-12-23 12:00 | ED ---
HPI Febrile Illness - HPI Summary HPI Summary: Pt is a 68 y/o female brought in by EMS who presents to the ED s/p fall. As per EMS, shes been having generalized weakness and a tremor since this morning. Pt then had a fall and couldnt get up. EMS also notes a fever of 101 degrees F, BG of 321, and BP of 160/90. Pt also c/o increased urinary frequency, diaphoresis, mild diarrhea, and mild chest tightness. She denies any SOB, rhinorrhea, cough, congestion. 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 Pts PCP would like a urinalysis done to rule out UTI. PMHx DM, HTN, deafness. Pt took ASA [employer]SP[employer]OR. - History of Current Complaint Hx Obtained From: Patient, EMS Onset/Duration: Started Hours Ago - This morning, Still Present Timing: Constant Current Severity: None Pain Intensity: 0 Pain Scale Used: 0-10 Numeric Aggravating Factors: Nothing Alleviating Factors: Nothing Associated Signs and Symptoms: Diaphoresis, Diarrhea, Weakness - Additional Pertinent History Primary Care Physician: PRIYANK - Allergy/Home Medications Allergies/Adverse Reactions: Allergies Allergy/AdvReac Type Severity Reaction Status Date / Time No Known Allergies Allergy Verified 12/23/18 11:51 Home Medications: Home Medications Ondansetron TAB* [Zofran 4 MG Tab*] 4 mg PO Q6H PRN 12/23/18 [History Confirmed 12/23/18] PMH/Surg Hx/FS Hx/Imm Hx Endocrine/Hematology History: Reports: Hx Diabetes - type 2 dm Denies: Hx Thyroid Disease Cardiovascular History: Reports: Hx Hypercholesterolemia, Hx Hypertension Respiratory History: Denies: Hx Asthma, Hx Chronic Obstructive Pulmonary Disease (COPD) GI History: Denies: Hx Ulcer History: Reports: Hx Kidney Stones - LAST SURGERY 2012 Musculoskeletal History: Reports: Hx Arthritis Sensory History: Reports: Hx Cataracts, Hx Contacts or Glasses - GLASSES, Hx Hearing Aid - HEARING AID-L; COCHLEAR IMPLANT RIGHT Opthamlomology History: Reports: Hx Cataracts, Hx Contacts or Glasses - GLASSES Neurological History: Reports: Hx Seizures - R/T TBI AT AGE 40, Other Neuro Impairments/Disorders - cochlear implant Psychiatric History: Reports: Hx Anxiety, Hx Depression - ON MEDS - Cancer History Hx Chemotherapy: No Hx Radiation Therapy: No - Surgical History Surgery Procedure, Year, and Place: carpal tunnel both wrists 1989- [facility]. CATARACT SURGERY- 2001- [facility]. COCHLEAR IMPLANT- [place], [place] 2013. KIDNEY STONE SURGERY- [facility]. 1985. cochlear implant. TONSILLECTOMY A CHILD. Left shoulder replacement x2 Hx Anesthesia Reactions: No Infectious Disease History: No Infectious Disease History: Denies: Hx Hepatitis, Hx Human Immunodeficiency Virus (HIV), Traveled Outside the [place] in Last 30 Days - Family History Known Family History: Positive: Hypertension, Diabetes Negative: Cardiac Disease - Social History Alcohol Use: None Hx Substance Use: No Substance Use Type: Reports: None Hx Tobacco Use: No Smoking Status (MU): Never Smoked Tobacco Review of Systems Positive: Fever, Skin Diaphoresis Negative: Nasal Discharge, Other - congestion Positive: Chest Pain - tightness Negative: Shortness Of Breath, Cough Positive: Diarrhea Positive: frequency Neurological: Other - tremor Positive: Weakness - generalized All Other Systems Reviewed And Are Negative: Yes Physical Exam - Summary Physical Exam Summary: Appearance: well appearing, no pain distress Skin: warm, dry, reflects adequate perfusion Head/face: normal Eyes: EOMI, HAILE ENT: mucous membranes moist Neck: supple, non-tender Respiratory: CTA, breath sounds present Cardiovascular: mildly tachycardic but regular rhythm, pulses symmetrical, 2-3+ pitting BLE edema Abdomen: non-tender, soft Bowel Sounds: present Musculoskeletal: normal, strength/ROM intact Neuro: sensory motor intact, A&Ox3, tremulous when sitting upright, hard of hearing, wears hearing aids Triage Information Reviewed: Yes Vital Signs On Initial Exam: Initial Vitals Temp Pulse Resp BP Pulse Ox 100.0 F 101 20 155/71 95 12/23/18 11:49 12/23/18 11:49 12/23/18 11:49 12/23/18 11:49 12/23/18 11:49 Vital Signs Reviewed: Yes Diagnostics - Vital Signs Vital Signs Temp Pulse Resp BP Pulse Ox 12/23/18 11:49 100.0 F 101 20 155/71 95 - Laboratory Result Diagrams: 12/23/18 12:27 12/23/18 12:27 Lab Statement: Any lab studies that have been ordered have been reviewed, and results considered in the medical decision making process. - Radiology CXR Radiology Interpretation Completed By: Radiologist Summary of Radiographic Findings: There is a small amount of atelectasis at the right lung base in this otherwise nonacute chest x-ray. ED physician reviewed radiology report. - EKG 12:00 Cardiac Rate: NL - 92 bpm EKG Rhythm: Sinus Rhythm ST Segment: Normal Summary of EKG Findings: Nl axis, nl intervals Course/Dx - Course Course Of Treatment: Nurse's notes reviewed. Patient with recent UTI and now a generalized weakness/falls. No injury with falls. Urine is grossly infected and lactate is elevated consistent with severe sepsis. IV fluids and antibiotics were given. The patient will be admitted to the hospitalist service. She is otherwise in stable condition. - Febrile Illness Differential Diagnoses: Abscess, Bacteremia, Fever of Unknown Origin, Medication Reaction, Pneumonia, Sepsis, Viremia, Other: - uti - Diagnoses Provider Diagnoses: UTI (urinary tract infection), Dehydration, Hyperglycemia due to type 2 diabetes mellitus, Severe sepsis - Provider Notifications Discussed Care Of Patient With: Mitchel Santos Time Discussed With Above Provider: 13:03 Instructed by Provider To: Admit As Inpatient - Critical Care Time Critical Care Time: 30-74 min - CCT is EXCLUSIVE of separately billable procedures. Discharge - Sign-Out/Discharge Documenting (check all that apply): Patient Departure - Admit Patient Received Moderate/Deep Sedation with Procedure: No - Discharge Plan Condition: Stable Disposition: ADMITTED TO [facility] - Billing Disposition and Condition Condition: STABLE Disposition: Admitted to [facility] - Attestation Statements Document Initiated by Scribe: Yes - Is no uti Documenting Scribe: Kera Tolentino Provider For Whom Scribe is Documenting (Include Credential): Isai Rodriguez MD Scribe Attestation: Kera Cadena, scribed for Isai Rodriguez MD on 12/23/18 at 1900. Scribe Documentation Reviewed: Yes Provider Attestation: The documentation as recorded by the Kera storm accurately reflects the service I personally performed and the decisions made by , Isai Rodriguez MD Status of Scribe Document: Viewed
[2018-12-23 12:36] LABS: Influenza A Molecular NEGATIVE (Negative); Influenza B Molecular NEGATIVE (Negative)
[2018-12-23 12:39] LABS: ABS Basophils 0.1 10^3/ul (0-0.2); ABS Eosinophils 0.3 10^3/ul (0-0.6); ABS Lymphocytes 1.1 10^3/ul (1.0-4.8); ABS Monocytes 0.6 10^3/ul (0-0.8); ABS Neutrophils 9.6 10^3/ul (1.5-7.7); ABS Nucleated RBC 0 10^3/ul; Eosinophil % 2.6 %; Hematocrit 30 % (33-41); Hemoglobin 9.5 g/dL (12.0-16.0); Lymphocyte % 9.6 %; Mean Corpuscular HGB Conc 31 g/dL (31-36); Mean Corpuscular Hemoglobin 25 pg (27-31); Mean Corpuscular Volume 80 fL (80-97); Mean Platelet Volume 7.5 fL (7.4-10.4); Nucleated Red Blood Cells % 0.1; Platelet Count 125 10^3/uL (150-450); Red Blood Count 3.82 10^6 /uL (3.70-4.87); Red Cell Distribution Width 17 % (10.5-15); White Blood Count 11.7 10^3/uL (3.5-10.8)
[2018-12-23 12:44] LABS: Urine Appearance Clear; Urine Bacteria 3+ (Absent); Urine Bilirubin Negative (Negative); Urine Blood Negative (Negative); Urine Color Straw; Urine Glucose Negative (Negative); Urine Ketones Negative (Negative); Urine Nitrite Negative (Negative); Urine Protein Negative (Negative); Urine Red Blood Cell 1+(3-5/hpf) (Absent); Urine Specific Gravity 1.006 (1.010-1.030); Urine Squamous Epithelial Cell Present (Absent); Urine Urobilinogen Negative (Negative); Urine White Blood Cell 2+(11-20/hpf) (Absent)
[2018-12-23 12:58] LABS: INR 0.91 (0.77-1.02)
[2018-12-23] MEDS ORDERED: cefTRIAXone(*) 1 GM in NS 0.9% 50 ML* 50 ML IVPB ONE (12:58)
[2018-12-23 12:59] LABS: Albumin 3.6 g/dL (3.2-5.2); Albumin/Globulin Ratio 1.6 (1-3); BUN/Creatinine Ratio 12.6 (8-20); C Reactive Protein 4.3 mg/L (<8.01); EGFR African American 44.2 (>60); EGFR Non-African American 36.5 (>60); Globulin 2.2 g/dL (2-4); Magnesium 1.3 mg/dL (1.9-2.7); Phosphorus 2.4 mg/dL (2.5-5.0); Total Bilirubin 0.6 mg/dL (0.2-1.0); Total Protein 5.8 g/dL (6.4-8.9)
[2018-12-23] MEDS ORDERED: Acetaminophen TAB* 325 MG PO ONE (12:59)
[2018-12-23 13:01] LABS: Troponin I 0.01 ng/mL (<0.04)
[2018-12-23] MEDS ORDERED: Magnesium Sulfate 2 GM IV* 2 GM/50 ML BAG IVPB ONE (13:55)
[2018-12-23] MEDS ORDERED: Dextrose 50% Syringe 50 ML* 25 GM/50 ML SYRINGE IV PUSH PRN (13:55)
[2018-12-23 13:56] LABS: Potassium 4.6 mmol/L (3.5-5.0)
[2018-12-23] MEDS: Heparin VIAL(*) 5000 UNITS/ML VIAL (FIVE THOUSAND) SUBCUT SCH ×2 (14:27→22:56)
--- NOTE | 2018-12-23 16:42 | HP ---
CC: Dr. Kincaid * HISTORY AND PHYSICAL: DATE OF ADMISSION: 12/23/18 HOSPITAL STATUS: Observation. PROVIDER: Yolanda Silvestre NP ATTENDING PHYSICIAN: Dr. Mitchel Santos * (report dictated by Yolanda Silvestre NP). PRIMARY CARE PROVIDER: Dr. Kincaid. CHIEF COMPLAINT: Fall, weakness, fever. HISTORY OF PRESENT ILLNESS: Ms. Rees is a 68-year-old female with a past medical history of type 2 diabetes, cochlear implant, anemia, hypertension, coronary artery disease with history of NH, who presents to the emergency department today with complaints of fall, unable to get up, generalized weakness x2 days and noted fever today. She reports that she was in the emergency department two days ago on 12/21/18 and was diagnosed with a urinary tract infection after she felt weak, had diarrhea and called an ambulance, she was sent home from the emergency department with Bactrim. She denies ever having any urinary symptoms. She reports the next day she felt better, reporting the diarrhea had resolved. Sge develop intermittent shakes and chills and today she got up to go to the bath-room and as she was walking back to the living room, she said her "knees just gave out", she fell on the floor and was felt too weak to get up. She denies any trauma or injuries. She denies losing consciousness. Again, she denies ever having any dysuria, hematuria, increased urinary frequency or urgency. She does report today that she had noted a temp of 101. She denies headache, sore throat, runny nose, nasal congestion, or body aches. She denies cough. No chest pain. No abdominal pain. She reports she has not diarrhea since . She reports slightly decreased appetite, but has been eating 3 meals a day with snacking. Currently, overall in the emergency department, she states she feels flushed like she has a mild temperature, reports some generalized weakness, but offers no other complaints. In the emergency department, she was found to have a lactic of 3.5, leukocytosis of 11.7, creatinine slightly elevated but above her baseline at 1.43, electrolyte abnormalities. She is negative for influenza A and B. It is noted that her microbiology from her urine culture grew Klebsiella pneumoniae from 12/21/18 with a colony count of greater than 100,000. The patient will be admitted to the hospitalist service for possible sepsis secondary to urinary tract infection. PAST MEDICAL HISTORY: 1. Type 2 diabetes. 2. Hypertension. 3. Obesity. 4. Depression. 5. Hyperlipidemia. 6. History of left humerus fracture, complicated by a septic shoulder joint. 7. Coronary artery disease with history of NH. 8. Cochlear implant on the right. 9. History of kidney stones. 10. Anemia. PAST SURGICAL HISTORY: 1. History of kidney stones. 2. Tonsillectomy. 3. History of . 4. Cochlear implant on the right. HOME MEDICATIONS: 1. Lasix 20 mg p.o. daily. 2. Acetaminophen 500 mg p.o. b.i.d. p.r.n. 3. Zofran 4 mg p.o. q.6 hours p.r.n. 4. Metformin 1000 mg p.o. b.i.d. 5. Glipizide 10 mg p.o. b.i.d. 6. Lisinopril 10 mg p.o. q.a.m. 7. Metoprolol-XL 25 mg p.o. q.a.m. and 50 mg p.o. q.p.m. 8. Meloxicam 15 mg p.o. daily with meals. 9. Ferrous sulfate 325 mg p.o. q.p.m. 10. Cymbalta 30 mg p.o. q.a.m. 11. Victoza 1.2 mg subcu daily. 12. Cardizem 120 mg p.o. q.a.m. 13. Valium 2 mg p.o. q.6 hours p.r.n. 14. Lipitor 80 mg p.o. q.p.m. 15. Aspirin 81 mg p.o. daily. ALLERGIES: No known allergies. FAMILY HISTORY: Mother had a history of diabetes and breast cancer. SOCIAL HISTORY: Denies history of tobacco abuse. No alcohol use. She is retired. She currently lives at [facility] by herself and is . Her surrogate decision maker is her daughter, Rancho Rees, who is very involved in her care. Her phone number is [phone]. The patient list herself as a full code. REVIEW OF SYSTEMS: A 14-point review of systems was performed. All the pertinent positives and negatives are mentioned in the history of present illness. Otherwise are negative. PHYSICAL EXAMINATION GENERAL APPEARANCE: A 68-year-old female, sitting up in the emergency department stretcher, visiting with her daughter, alert and oriented x3, in no acute distress, very pleasant and appropriate on examination. VITAL SIGNS: Temperature 100, heart rate 87, respirations 23, O2 sat 98% on room air, blood pressure 152/73. HEENT: Head is normocephalic, atraumatic. Pupils are equal and reactive to light. Oropharynx is clear. Moist mucous membranes. LUNGS: Clear to auscultation bilaterally. Good aeration throughout. CARDIAC: S1, S2. Regular rate and rhythm. No murmur, rub, or gallop appreciated. 1-2+ lower extremity edema noted bilaterally. No JVD noted. ABDOMEN: Obese, soft, nontender, nondistended. Normal bowel sounds throughout. No CVA tenderness. EXTREMITIES: No clubbing or cyanosis. Moves all extremities equally. Strength is 5/5 throughout. NEUROLOGIC: Alert and oriented x3. Cranial nerve II through XII are grossly intact. No focal deficits noted. DIAGNOSTIC STUDIES/LAB DATA: Sodium 140, potassium pending, chloride 108, carbon dioxide 19, anion gap pending, BUN 18, creatinine 1.43, glucose 241, lactic 3.5, calcium 9.4, phosphorus 2.4, magnesium 1.3. Total bilirubin 0.60, AST pending, ALT 20, alkaline phosphatase 44. Troponin 0.01. C-reactive protein 4.30. BNP 294. Total protein 5.8, albumin 3.6. WBCs 11.7, RBC 3.82, HGB 9.5, HCT 30, MCV 80, MCH 25, MCHC 31, RDW 17, platelet count 125. Influenza A and B negative. APTT 25.4, INR 0.91. Chest x-ray, impression: "There is a small amount of atelectasis at the right lung base and is otherwise not acute chest x-ray." EKG, sinus rhythm with a rate of 92. In comparison to prior EKGs, there are no acute ischemic changes noted. ASSESSMENT AND PLAN: Ms. Rees is a 68-year-old female with past medical history of type 2 diabetes, obesity, hypertension, cochlear implant, who presents today to the emergency department after a fall at home and unable to get up with report of fever of 101, generalized weakness and recent diagnosis of urinary tract infection 2 days ago on 12/21/18 in which she was placed on Bactrim, now showing a urine culture result of Klebsiella pneumoniae, urinary tract infection with possible signs of sepsis. 1. Possible sepsis secondary to urinary tract infection with Klebsiella pneumoniae with colony count of greater than 100,000 which is sensitive to Bactrim; however, we will stop this and and continue ceftriaxone 1 gm IV [id number]. Await blood cultures. Her lactic acid is noted to be 3.5 in the emergency department and 2 days ago was 2.2. It is possible this is secondary to metformin use. I will hold the metformin. She was given 1 L of normal saline in the emergency department. However, due to her lower extremities noted to have significant fluid overload, I am not going to bolus the patient. Vital signs are stable. She appears nontoxic. Plan to give the patient another liter of normal saline at 100 mL an hour. Repeat Lactic in 2 hours. 2. Acute kidney injury. Her creatinine is slightly above baseline at 1.43. Plan to obtain a renal and bladder ultrasound as she does have a history of stones. I suspect this could also be possibly secondary to dehydration. 3. Electrolyte abnormalities. We will give replacement of magnesium and recheck in the morning. Her phos is slightly low at 2.4, we will recheck this in the morning. Potassium is pending. 4. Type 2 diabetes. We will hold home medications and start fingersticks with lispro sliding scale. 5. Normocytic anemia. Appears to be at her baseline. Continue ferrous sulfate 325 mg p.o. daily. 6. Hypertension. We will hold lisinopril due to acute kidney injury and continue diltiazem and metoprolol. 7. Coronary artery disease. Continue beta-marjorie, Lipitor, baby aspirin. 8. Lower extremity edema. Per the daughter and the patient, she has had increase in lower extremity edema over the last month or so and she was started on Lasix. She continues to be quite fluid overloaded in her lower extremities. Plan to hold this at this time and will need to be reassessed tomorrow. 9. DVT prophylaxis. Heparin subcu. 10. Code status: Full code. TIME SPENT: Approximately 60 minutes was spent on this admission. YOLANDA SILVESTRE, GREASE REFINER OPERATOR [id number]/[facility] #: [id number] MARGARET
[2018-12-23] MEDS: Atorvastatin* 80 MG TAB PO SCH (17:15)
[2018-12-23] MEDS: Insulin LISPRO* 1 UNITS UNIT SUBCUT SCH ×2 (17:15→22:56)
[2018-12-23] MEDS: Ferrous Sulfate TAB* 325 MG PO SCH (17:15)
[2018-12-23] MEDS: Metoprolol Succinate XL TAB* 50 MG PO SCH (17:15)
[2018-12-23] MEDS ORDERED: NS 0.9% 1000 ML** 1,000 ML IV SCH (20:15)
[2018-12-24 05:31] LABS: ABS Basophils 0 10^3/ul (0-0.2); ABS Eosinophils 0.3 10^3/ul (0-0.6); ABS Lymphocytes 2.1 10^3/ul (1.0-4.8); ABS Monocytes 0.4 10^3/ul (0-0.8); ABS Neutrophils 6.2 10^3/ul (1.5-7.7); ABS Nucleated RBC 0 10^3/ul; Eosinophil % 3.4 %; Hematocrit 27 % (33-41); Hemoglobin 8.7 g/dL (12.0-16.0); Lymphocyte % 22.8 %; Mean Corpuscular HGB Conc 32 g/dL (31-36); Mean Corpuscular Hemoglobin 25 pg (27-31); Mean Corpuscular Volume 79 fL (80-97); Mean Platelet Volume 7.3 fL (7.4-10.4); Nucleated Red Blood Cells % 0.1; Platelet Count 115 10^3/uL (150-450); Red Blood Count 3.44 10^6 /uL (3.70-4.87); Red Cell Distribution Width 18 % (10.5-15)
[2018-12-24 05:48] LABS: BUN/Creatinine Ratio 11.9 (8-20); Calcium 8.6 mg/dL (8.6-10.3); EGFR African American 44.2 (>60); EGFR Non-African American 36.5 (>60); Magnesium 1.8 mg/dL (1.9-2.7); Potassium 4.4 mmol/L (3.5-5.0)
[2018-12-24] MEDS: Heparin VIAL(*) 5000 UNITS/ML VIAL (FIVE THOUSAND) SUBCUT SCH ×3 (06:27→21:20)
[2018-12-24] MEDS: Metoprolol Succinate XL TAB* 25 MG PO SCH (09:09)
[2018-12-24] MEDS: Diltiazem CD CAP* 120 MG PO SCH (09:09)
[2018-12-24] MEDS: DULoxetine DR CAP* 30 MG CAP.DR PO SCH (09:09)
[2018-12-24] MEDS: Aspirin EC TAB* 81 MG TAB.EC PO SCH (09:09)
[2018-12-24] MEDS: Insulin LISPRO* 1 UNITS UNIT SUBCUT SCH ×4 (09:09→21:17)
--- NOTE | 2018-12-24 11:46 | PN ---
Subjective Date of Service: 12/24/18 Interval History: Ms. Rees reports that she continues to feel weak and unsteady on her feet. Physical Therapy felt that she did well but would benefit from PT outpatient. She denies other complaint including chest pain, SOB, nausea, abdominal pain, flank pain, or dysuria. Objective Active Medications: Acetaminophen (Tylenol Tab*) 650 mg PO Q6H PRN Aspirin (Aspirin Ec Tab*) 81 mg PO QAM YUDI Atorvastatin Calcium (Lipitor*) 80 mg PO QPM YUDI Dextrose (D50w Syringe 50 Ml*) 12.5 gm IV PUSH .FOR FS < 60 - SS PRN Diltiazem HCl (Cardizem Cd Cap*) 120 mg PO QAM YUDI Duloxetine HCl (Cymbalta Cap*) 30 mg PO QAM YUDI Ferrous Sulfate (Ferrous Sulfate Tab*) 325 mg PO QPM YUDI Heparin Sodium (Porcine) (Heparin Vial(*)) 5,000 units SUBCUT Q8HR YUDI Ceftriaxone Sodium 1 gm/ (Sodium Chloride) 50 mls @ 200 mls/hr IVPB Q24H YUDI Insulin Human Lispro (Humalog*) 0 units SUBCUT ACHS YUDI; Protocol Metoprolol Succinate (Toprol Xl Tab*) 25 mg PO QAM YUDI Metoprolol Succinate (Toprol Xl Tab*) 50 mg PO QPM [facility] Vital Signs: Temp Pulse Resp BP Pulse Ox 98.3 F 83 16 132/66 98 12/24/18 07:45 12/24/18 07:45 12/24/18 08:00 12/24/18 07:45 12/24/18 08:00 Oxygen Devices in Use Now: None Result Diagrams: 12/24/18 05:25 12/24/18 05:25 Assess/Plan/Problems-Billing Assessment: Ms. Rees is a 68 yo F with a PMH of CAD with [place] and DM who was admitted on 12/23/18 with UTI and possible early sepsis with weakness and fall. - Patient Problems (1) Sepsis Comment: - WBC 11.7, HR 100, T 100.0 - Suspect secondary to UTI. (2) UTI (urinary tract infection) Comment: - Klebsiella on 12/21 and on 12/23 depsite treatment with bactrim (original culture was sensitive to bactrim). - Of note, renal US shows non obstructing stones at corticomedullary junction, plan to review with Urology and/or ID tomorrow - Continue ceftriaxone for now (3) Anemia Comment: - Chronic, stable. - Continue FeSO4 once daily, continue follow up and monitoring with PCP (4) CAD (coronary artery disease) Comment: - Continue ASA, BB and plavix (5) Diabetes Comment: - Lispro SS - Restart home meds at [place] (6) HTN (hypertension) Current Visit: No Status: Acute Code(s): I10 - ESSENTIAL (PRIMARY) HYPERTENSION SNOMED Code(s): 99269197 Comment: - Continue lisinopril, metoprol XL, diltiazem CD (7) Hypertension Comment: - BP well controlled - metoprolol, cardizem (8) Depression Comment: anita (9) DVT prophylaxis Comment: - HSQ (10) Full code status Status and Disposition: OBV. Anticipate discharge to assisted living when medically stable.
[2018-12-24] MEDS: cefTRIAXone(*) 1 GM in NS 0.9% 50 ML* 50 ML IVPB SCH (13:06)
[2018-12-24] MEDS: Atorvastatin* 80 MG TAB PO SCH (17:29)
[2018-12-24] MEDS: Metoprolol Succinate XL TAB* 50 MG PO SCH (17:29)
[2018-12-24] MEDS: Ferrous Sulfate TAB* 325 MG PO SCH (17:29)
[2018-12-24] MEDS: Acetaminophen TAB* 325 MG PO PRN (19:50)
[2018-12-25] MEDS: Heparin VIAL(*) 5000 UNITS/ML VIAL (FIVE THOUSAND) SUBCUT SCH ×3 (05:51→21:23)
[2018-12-25] MEDS: Insulin LISPRO* 1 UNITS UNIT SUBCUT SCH ×4 (08:43→21:23)
[2018-12-25] MEDS: Diltiazem CD CAP* 120 MG PO SCH (08:44)
[2018-12-25] MEDS: DULoxetine DR CAP* 30 MG CAP.DR PO SCH (08:44)
[2018-12-25] MEDS: Aspirin EC TAB* 81 MG TAB.EC PO SCH (08:44)
[2018-12-25] MEDS: Metoprolol Succinate XL TAB* 25 MG PO SCH (08:44)
[2018-12-25] MEDS: cefTRIAXone(*) 1 GM in NS 0.9% 50 ML* 50 ML IVPB SCH (14:41)
--- NOTE | 2018-12-25 17:18 | PN ---
Subjective Date of Service: 12/25/18 Interval History: Pt seen and examined. Meds and labs reviewed. CC: N/A ROS: Denied SHERMAN/dizziness, F/C, N/V, CP, SOB, increased cough, sputum production , abd pain, diarrhea, constipation, dysuria, myalgias, arthralgias, throat pain , and new skin lesions. The rest of the 14 point ROS are unremarkable. PHYSICAL EXAM: GEN APPEARANCE: Awake, not in acute distress HEENT: NC/AT, PERRLA, moist oral mucosa, (-) throat erythema NECK: Soft, supple, (-) cervical LAD, (-)JVD HEART: S1S2 WNL, RRR, No MRG CHEST: CTA, BL, GAE, No W/R/R ABD: Soft, ND/NT, NABS 4x Q EXT: No C/C/E SKIN: Warm to touch PSYCH: No active psychosis, hallucinations, depression, SI/HI Objective Active Medications: Acetaminophen (Tylenol Tab*) 650 mg PO Q6H PRN PRN Reason: FEVER/PAIN Last Admin: 12/24/18 19:50 Dose: 650 mg Aspirin (Aspirin Ec Tab*) 81 mg PO QAM [facility] Last Admin: 12/25/18 08:44 Dose: 81 mg Atorvastatin Calcium (Lipitor*) 80 mg PO QPM [facility] Last Admin: 12/24/18 17:29 Dose: 80 mg Dextrose (D50w Syringe 50 Ml*) 12.5 gm IV PUSH .FOR FS < 60 - SS PRN PRN Reason: FS < 60 Diltiazem HCl (Cardizem Cd Cap*) [facility] [facility] [place] Last Admin: 12/25/18 08:44 Dose: 120 mg Duloxetine HCl (Cymbalta Cap*) 30 mg PO QAM [facility] Last Admin: 12/25/18 08:44 Dose: 30 mg Ferrous Sulfate (Ferrous Sulfate Tab*) 325 mg PO QPM [facility] Last Admin: 12/24/18 17:29 Dose: 325 mg Heparin Sodium (Porcine) (Heparin Vial(*)) 5,000 units SUBCUT Q8HR [facility] Last Admin: 12/25/18 12:45 Dose: 5,000 units Cefazolin Sodium 1 gm/ Sodium (Chloride) 50 mls @ 200 mls/hr IVPB Q8H [facility] Insulin Human Lispro (Humalog*) 0 units SUBCUT ACHS [facility]; Protocol Last Admin: 12/25/18 12:45 Dose: 9 units Metoprolol Succinate (Toprol Xl Tab*) 25 mg PO QAM [facility] Last Admin: 12/25/18 08:44 Dose: 25 mg Metoprolol Succinate (Toprol Xl Tab*) 50 mg PO QPM [facility] Last Admin: 12/24/18 17:29 Dose: 50 mg Vital Signs - 8 hr 12/25/18 12/25/18 11:50 15:24 Temperature 99.1 F 98.1 F Pulse Rate 80 81 Respiratory 18 16 Rate Blood Pressure 130/70 148/81 (mmHg) O2 Sat by Pulse 97 98 Oximetry Oxygen Devices in Use Now: None Result Diagrams: 12/24/18 05:25 12/24/18 05:25 Microbiology and Other Data: Microbiology 12/23/18 12:26 Aerobic Blood Culture - Preliminary Blood Venous No Growth Day 2 Anaerobic Blood Culture - Preliminary No Growth Day 2 12/23/18 12:08 Aerobic Blood Culture - Preliminary Blood Venous No Growth Day 2 Anaerobic Blood Culture - Preliminary No Growth Day 2 12/23/18 12:35 Urine Culture - Final Urine Klebsiella Pneumoniae Assess/Plan/Problems-Billing Assessment: Ms. Rees is a 68 yo F with a PMH of CAD with [place] and DM who was admitted on 12/23/18 with UTI and possible early sepsis with weakness and fall. - Patient Problems (1) Sepsis secondary to UTI Current Visit: Yes Status: Acute Code(s): A41.9 - SEPSIS, UNSPECIFIED ORGANISM; N39.0 - URINARY TRACT INFECTION, SITE NOT SPECIFIED SNOMED Code(s): 950365229 Comment: -With sepsis, now resolved - Klebsiella on 12/21 and on 12/23 depsite treatment with bactrim (original culture was sensitive to bactrim). - Of note, renal US shows non obstructing stones at corticomedullary junction; nothing to do in these cases but will touch base w/Dr. Moses in AM as no one is available for consultation for urology today - Will narrow Abx to Ancefd/w pharmacist who will make appropriate conversion as discussed -Blood Cx (-) x 1 day (2) Anemia Current Visit: No Status: Acute Code(s): D64.9 - ANEMIA, UNSPECIFIED SNOMED Code(s): 066592013 Comment: - Chronic, stable. - Continue FeSO4 once daily, continue follow up and monitoring with PCP (3) CAD (coronary artery disease) Current Visit: No Status: Acute Code(s): I25.10 - ATHSCL HEART DISEASE OF [place] CORONARY ARTERY W/O ANG PCTRS SNOMED Code(s): 38882060 Comment: - Continue ASA, BB and plavix (4) Diabetes Current Visit: No Status: Acute Code(s): E11.9 - TYPE 2 DIABETES MELLITUS WITHOUT COMPLICATIONS SNOMED Code(s): 73305118 Comment: - Lispro SS - Restart home meds at [place] (5) HTN (hypertension) Current Visit: No Status: Acute Code(s): I10 - ESSENTIAL (PRIMARY) HYPERTENSION SNOMED Code(s): 42113938 Comment: - Continue lisinopril, metoprol XL, diltiazem CD (6) Depression Current Visit: No Status: Chronic Priority: Medium Code(s): F32.9 - MAJOR DEPRESSIVE DISORDER, SINGLE EPISODE, UNSPECIFIED SNOMED Code(s): 98355796 Comment: anita (7) DVT prophylaxis Current Visit: No Status: Acute Code(s): UGT9491 - SNOMED Code(s): 284935697 Comment: - HSQ Status and Disposition: -Possible D/C in AM to Assisted living facility
[2018-12-25] MEDS: Metoprolol Succinate XL TAB* 50 MG PO SCH (17:31)
[2018-12-25] MEDS: Atorvastatin* 80 MG TAB PO SCH (17:31)
[2018-12-25] MEDS: Ferrous Sulfate TAB* 325 MG PO SCH (17:31)
[2018-12-25] MEDS: Acetaminophen TAB* 325 MG PO PRN (20:04)
[2018-12-25] MEDS: ceFAZolin 1 GM* Q8H (AddVan) IVPB SCH ×2 (23:38)
[2018-12-26] MEDS: Heparin VIAL(*) 5000 UNITS/ML VIAL (FIVE THOUSAND) SUBCUT SCH (05:48)
[2018-12-26 07:58] LABS: Hematocrit 30 % (33-41); Hemoglobin 9.9 g/dL (12.0-16.0); Mean Corpuscular HGB Conc 33 g/dL (31-36); Mean Corpuscular Hemoglobin 26 pg (27-31); Mean Corpuscular Volume 79 fL (80-97); Mean Platelet Volume 7.5 fL (7.4-10.4); Platelet Count 129 10^3/uL (150-450); Red Blood Count 3.87 10^6 /uL (3.70-4.87); Red Cell Distribution Width 17 % (10.5-15); White Blood Count 6.9 10^3/uL (3.5-10.8)
[2018-12-26 08:05] LABS: Albumin 3.4 g/dL (3.2-5.2); Magnesium 1.6 mg/dL (1.9-2.7); Potassium 4.4 mmol/L (3.5-5.0); Total Bilirubin 0.5 mg/dL (0.2-1.0)
[2018-12-26 08:11] LABS: Albumin/Globulin Ratio 1.4 (1-3); BUN/Creatinine Ratio 13.3 (8-20); EGFR African American 54.1 (>60); EGFR Non-African American 44.7 (>60); Globulin 2.5 g/dL (2-4); Phosphorus 3.7 mg/dL (2.5-5.0); Total Protein 5.9 g/dL (6.4-8.9)
[2018-12-26] MEDS: Insulin LISPRO* 1 UNITS UNIT SUBCUT SCH ×2 (08:38→12:41)
[2018-12-26] MEDS: Aspirin EC TAB* 81 MG TAB.EC PO SCH (08:42)
[2018-12-26] MEDS: DULoxetine DR CAP* 30 MG CAP.DR PO SCH (08:42)
[2018-12-26] MEDS: Metoprolol Succinate XL TAB* 25 MG PO SCH (08:42)
[2018-12-26] MEDS: Diltiazem CD CAP* 120 MG PO SCH (08:42)
[2018-12-26] MEDS: ceFAZolin 1 GM* Q8H (AddVan) IVPB SCH ×2 (08:55)
[2018-12-26 11:32] VITALS: BP 135/59
[2018-12-26 15:16] LABS: ABS Basophils 0 10^3/ul (0-0.2); ABS Eosinophils 0.4 10^3/ul (0-0.6); ABS Lymphocytes 1.9 10^3/ul (1.0-4.8); ABS Monocytes 0.4 10^3/ul (0-0.8); ABS Neutrophils 4.1 10^3/ul (1.5-7.7); ABS Nucleated RBC 0.01 10^3/ul; Lymphocyte % 27.8 %
[2018-12-26 15:17] LABS: Eosinophil % 6.2 %; Nucleated Red Blood Cells % 0.1
--- NOTE | 2018-12-26 16:47 | DS ---
CC: Dr. Mitchel Santos; Dr. Isai Rodriguez; Dr. Anjum Kincaid DISCHARGE SUMMARY: DATE OF ADMISSION: 12/25/18 DATE OF DISCHARGE: 12/26/18 DISCHARGE CONDITION: Stable. DISCHARGE DISPOSITION: Home. DISCHARGE DIAGNOSES: As follows: 1. Sepsis likely due to urinary tract infection. 2. Two nonobstructing calculi in the right corticomedullary junction measuring 1.5 and 1.2 cm in gre atest diameter; to follow up with Dr. Stephenson in 1 month. 3. History of iron deficiency anemia. 4. History of coronary artery disease. DISCHARGE MEDICATIONS: As follows: 1. Aspirin 81 mg p.o. q.a.m. 2. Atorvastatin 80 mg p.o. q.p.m. 3. Diltiazem 120 mg p.o. q.a.m. 4. Duloxetine 30 mg p.o. q.a.m. 5. Ferrous sulfate 325 mg p.o. q.p.m. 6. Metoprolol succinate XL tab 50 mg p.o. q.p.m. 7. Metoprolol succinate XL tab 25 mg p.o. q.a.m. 8. Tylenol 500 mg p.o. b.i.d. 9. Cephalexin 500 mg p.o. t.i.d. for 5 more days. 10. Diazepam 2 mg p.o. q.6 p.r.n. 11. Lasix 10 mg p.o. daily to start on 12/27/18. 12. Glipizide 10 mg p.o. b.i.d. 13. Floranex tabs, 2 tabs p.o. daily for 8 days. 14. Liraglutide 1.2 mg subcutaneous daily. 15. Lisinopril tab 10 mg p.o. q.a.m. 16. Meloxicam 15 mg p.o. daily. 17. Metformin 1000 mg p.o. b.i.d. 18. Ondansetron 4 mg p.o. q.6 p.r.n. 19. Pantoprazole 20 mg p.o. daily. HISTORY OF PRESENT ILLNESS/HOSPITAL COURSE: The patient is a 68-year-old lady with a histo ry of diabetes mellitus, type 2; cochlear implant; anemia, who presented on 12/23/18 with a chief com plaint of fall, weakness, and fever, and was subsequently found to have mild sepsis secondary to UTI. An abdominal imaging, more specifically a renal ultrasound was done on 12/24/18, which suggests at least 2 nonobstructing calculi identified in the right cortical medullary junction measuring 1.5 and 1.2 cm in their greatest dimension. There are no signs of hydronephrosis identified. Prior to the p atient being discharged, I have touched base with Dr. Stephenson, who mentions that he will see the patien t as an outpatient within a couple of months postdischarge. She had been advised to set up an appoin tment in 1 month. Her UTI is thought to be secondary to Klebsiella pneumoniae given this is what marco ws in culture, which is sensitive to a first- generation cephalosporin. She was initially treated wi ceftriaxone, which was then narrowed to Ancef and now, the patient will be discharged on Keflex fo r 5 more days to complete a 7-day treatment therapy. The patient was advised to follow up and/or call her PCP within 3 days postdischarge and if her sympt oms resume or develop new ones or feel unwell for any reason, she was advised to call her PCP first. If her PCP cannot entertain her due to scheduling issues alone, she was advised to call [facility] if the issue is nonemergent. She had been informed that she has nonobstructing renal stones in her right kidney more specifically and to discuss this with Dr. Stephenson/Nisha on followup. She w as advised to call their office to make/confirm her appointment. She was advised to call my office r egarding any questions, concerns, or further clarifications regarding her discharge plans and/or pres criptions and to take her medications as prescribed. REVIEW OF SYSTEMS: The patient denied any current headaches, dizziness, fevers, chills, nausea, vomi ting, chest pain, shortness of breath, increased coughing or sputum production, abdominal pain, diarr hea, constipation, pain and/or increased frequency on urination, myalgias, arthralgias, throat pain, or new skin lesions. The rest of the 14-point review of systems is otherwise unremarkable. PHYSICAL EXAMINATION: Shows the most recent vital signs of records with blood pressure of 135/59, 74 beats per minute heart rate, 20 per minute respiratory rate, saturating at 97% on room air. General Appearance: The patient is awake, not in acute distress. HEENT: Normocephalic, atraumatic. PERRL A. Extraocular muscles intact. Negative for icterus. Moist oral mucosa. Negative throat erythema. Neck is soft, supple with no cervical lymphadenopathy. No JVD. Heart: S1, S2 within normal limit s. Regular rate and rhythm. No murmurs, rubs, or gallops. Chest: Clear to auscultation bilaterally . Good air entry. No wheezes, rales, or rhonchi. Abdomen is soft, nondistended, nontender. Normoac tive bowel sounds x4 quadrants. Extremities: No cyanosis, clubbing, or edema. Psychiatric: No acti ve psychosis, depression, suicidal or homicidal ideation. Skin is warm to touch. TIME SPENT: The total time spent evaluating the patient, reviewing pertinent data, and appropriate d ocumentation is 50 minutes. [id number]/[id number] #: [id number]
== END 2018-12-26 14:45 | disposition home health service (06) | DRG 872 ==
LOC: ED 11:48 → INTOOBSV 13:51 → MED 13:51 → OBSVTOIN 12-25 14:51
PROVIDERS: ADMIT Internal Medicine; ATTEND Student in an Organized Health Care Education/Training Program
DX: A41.9 Sepsis, unspecified organism (principal); Z68.41 Body mass index [BMI] 40.0-44.9, adult; N17.9 Acute kidney failure, unspecified; N39.0 Urinary tract infection, site not specified; I10 Essential (primary) hypertension; E78.00 Pure hypercholesterolemia, unspecified; M19.90 Unspecified osteoarthritis, unspecified site; F41.9 Anxiety disorder, unspecified; F32.9 Major depressive disorder, single episode, unspecified; Z96.612 Presence of left artificial shoulder joint; E86.0 Dehydration; B96.1 Klebsiella pneumoniae [K. pneumoniae] as the cause of diseases classified elsewhere; N20.0 Calculus of kidney; E11.65 Type 2 diabetes mellitus with hyperglycemia; E66.9 Obesity, unspecified; E78.5 Hyperlipidemia, unspecified; D50.9 Iron deficiency anemia, unspecified; I25.10 Atherosclerotic heart disease of native coronary artery without angina pectoris; Z96.21 Cochlear implant status; Z98.42 Cataract extraction status, left eye; Z87.442 Personal history of urinary calculi; Z98.41 Cataract extraction status, right eye; Z82.49 Family history of ischemic heart disease and other diseases of the circulatory system; Z83.3 Family history of diabetes mellitus; I25.2 Old myocardial infarction; Z80.3 Family history of malignant neoplasm of breast; Z79.82 Long term (current) use of aspirin; Z79.84 Long term (current) use of oral hypoglycemic drugs
CPT/HCPCS: 36415; 71045; 76775; 80048; 80053; 81003; 81015; 82803; 83605; 83735; 83880; 84100; 84484; 85025; 85610; 85730; 86140; 87040; 87077; 87086; 87186; 93005; 96365; 96366; 96372; 99284; A9270-GY; G0378; G8978-GP-CK; G8979-GP-CI; J0690; J0696; J1644; J3475